=== PATIENT | female | born 1975 | race Caucasian/White ===

== ENCOUNTER 2020-01-13 18:26 | Emergency (ER) | payer BC, OTHER ==
[2020-01-13 18:32] VITALS: BP 157/92; PULSE 90; RESP 22; TEMP 100.1
[2020-01-13] MEDS ORDERED: ACET/COD 300 MG/30 MG STARTER PACK 6 TAB BTL PO STA (19:14)
[2020-01-13] MEDS ORDERED: CYCLOBENZAPRINE 10MG STARTER 3 TAB BTL PO STA (19:14)
[2020-01-13] MEDS ORDERED: HYDROcodone/APAP 5-325MG 1 EACH TAB PO STA (19:14)
--- NOTE | 2020-01-13 19:16 | ED ---
Lower Extremity Injury HPI - General Chief Complaint: Extremity Injury, Lower Stated Complaint: lt calf pain Time Seen by Provider: 01/13/20 18:48 Source: patient Mode of arrival: wheelchair Limitations: no limitations - History of Present Illness Initial Comments: 44-year-old female patient presents to the emergency department today for evaluation of left calf pain. Patient states that she was doing a light jog when she felt a cramp building in her left calf. States that she continued to jog and she felt a snapping sensation and immediate herbal pain to the mid posterior left calf. States that she experiences significant discomfort when she dorsiflexes her foot. She denies any leg swelling. Denies fever or chills. Denies history of similar symptoms. States she does have Achilles tendinitis on that side. She denies any recent antibiotic use. Patient denies any headache, neck pain, back pain, chest pain, shortness of breath, dizziness, weakness, abdominal pain, nausea, vomiting, or difficulties with bowel movements or urination. - Related Data Home Medications Medication Instructions Recorded Confirmed atenoloL [Tenormin] 50 mg PO DAILY 10/14/15 07/03/19 Spironolactone 50 mg PO DAILY 07/02/19 07/02/19 Previous Rx's Medication Instructions Recorded Docusate [Colace] 100 mg PO BID #20 capsule 07/03/19 HYDROcodone/APAP 5-325MG [[place] 1 tab PO Q6HR PRN #10 tab 07/03/19 5-325] Cyclobenzaprine [Flexeril] 10 mg PO TID #15 tab 01/13/20 Allergies Allergy/AdvReac Type Severity Reaction Status Date / Time No Known Allergies Allergy Verified 01/13/20 18:31 Review of Systems ROS Statement: Those systems with pertinent positive or pertinent negative responses have been documented in the HPI. ROS Other: All systems not noted in ROS Statement are negative. Past Medical History Past Medical History: Hypertension Additional Past Medical History / Comment(s): chronic left shoulder pain, arthritis bilateral knees, lowback pain, History of Any Multi-Drug Resistant Organisms: None Reported Past Surgical History: Section, Orthopedic Surgery, Tubal Ligation Additional Past Surgical History / Comment(s): left shoulder X2, bilateral orthoscopic knee surgery Past Anesthesia/Blood Transfusion Reactions: Postoperative Nausea & Vomiting (PONV) Additional Past Anesthesia/Blood Transfusion Reaction / Comment(s): slow to wake up Past Psychological History: No Psychological Hx Reported Past Alcohol Use History: None Reported Past Drug Use History: None Reported - Past Family History Father Family Medical History: Hyperlipidemia, Hypertension Additional Family Medical History / Comment(s): pacemaker for arrhythmia Mother Family Medical History: Hyperlipidemia, Hypertension General Exam Limitations: no limitations General appearance: alert, in no apparent distress, other (This is a well- developed, well-nourished adult female patient in no acute distress. Vital signs upon presentation are temperature 100.1F, pulse 90, respirations 22, blood pressure 157/92, pulse ox 97% on room air.) Respiratory exam: Present: normal lung sounds bilaterally. Absent: respiratory distress, wheezes, rales, rhonchi, stridor Cardiovascular Exam: Present: regular rate, normal rhythm, normal heart sounds. Absent: systolic murmur, diastolic murmur, rubs, gallop, clicks Extremities exam: Present: full ROM, tenderness (Left posterior Calf), normal capillary refill, other (Left leg is pink, warm, dry. Cap refills less than 3 seconds. There is no posterior knee tenderness. There is mid posterior calf tenderness. No redness. Negative Giraldo test. Pedal and posttibial pulses 2+.). Absent: normal inspection, pedal edema, joint swelling, calf tenderness Neurological exam: Present: alert, oriented X3, CN II-XII intact Psychiatric exam: Present: normal affect, normal mood Skin exam: Present: warm, dry, intact, normal color. Absent: rash Course Vital Signs 01/13/20 18:28 Temperature 100.1 F H Pulse Rate 90 Respiratory 22 Rate Blood Pressure 157/92 O2 Sat by Pulse 97 Oximetry Medical Decision Making - Medical Decision Making 44-year-old female patient presents to the emergency department today for evaluation of left calf pain. Patient states that she was jogging today when she felt a cramp in a snapping sensation in the calf causing immediate onset of severe pain. Physical examination reveals normal neurovascular status. She has a negative Giraldo test. We did discuss possibility of muscle spasm versus muscle tear. We will treat with pain medication and muscle relaxers. She will be discharged to follow-up with orthopedics in the next 1-2 days. Return parameters were discussed in detail. She verbalizes understanding and agrees with this plan. Disposition Clinical Impression: Strain of left calf muscle Disposition: HOME SELF-CARE Condition: Good Instructions (If sedation given, give patient instructions): Muscle Strain (ED), Muscle Spasm (ED) Additional Instructions: Apply ice to the area for the first 24 hours and switch to warm moist heat. Take medications as directed for pain control. Follow-up with the primary care physician for recheck in 1-2 days. Follow-up with integrated specialist as soon as possible, call in the morning for an appointment. Rest the leg. Return to the emergency department immediately for any new, worsening, or concerning symptoms. Prescriptions: Cyclobenzaprine [Flexeril] 10 mg PO TID #15 tab Is patient prescribed a controlled substance at d/c from ED?: No Referrals: Azul Cha MD [Primary Care Provider] - 1-2 days Carlitos Peguero DO [Doctor of Osteopathic Medicine] - 1-2 days Time of Disposition: 19:16
== END 2020-01-13 19:23 | disposition home or self-care (01) ==
LOC: EC 18:26
DX: S86.912A Strain of unspecified muscle(s) and tendon(s) at lower leg level, left leg, initial encounter (principal); I10 Essential (primary) hypertension; M17.0 Bilateral primary osteoarthritis of knee; Z79.899 Other long term (current) drug therapy; Z98.890 Other specified postprocedural states; X50.9XXA Other and unspecified overexertion or strenuous movements or postures, initial encounter; Y93.K1 Activity, walking an animal
CPT/HCPCS: 99283

== ENCOUNTER → 2021-06-21 | Outpatient (CLI) | payer BC, OTHER ==
--- NOTE | 2021-06-22 04:47 | MR ---
EXAMINATION TYPE: MR tib fib LT wo con DATE OF EXAM: 06/21/2021 COMPARISON: None HISTORY: Lt calf/ankle pain after jogging, felt something pop. Multiplanar multiecho imaging of the left lower leg without contrast. The tibia and fibula appear intact. There is no edema. There is no evidence of focal bone destruction . There are small elongated fluid collection on the anterior aspect of the Achilles tendon that measu res 31 x 7 mm. . There is no Achilles tendon full-thickness rupture. The muscles of the calf appear i ntact. I see no evidence of a soft tissue mass. The remainder of the exam is unremarkable. IMPRESSION: Exam shows small elongated fluid collection along the anterior aspect of the left side Achilles tendo n and suggestive of a partial tear.
== END | disposition home or self-care (01) ==
LOC: RADMRIMAIN 21:07
PROVIDERS: ATTEND Internal Medicine Rheumatology
DX: M79.662 Pain in left lower leg (principal)

== ENCOUNTER → 2021-06-30 | Outpatient (CLI) | payer BC, OTHER ==
[2021-06-30 14:33] VITALS: BP 160/114; PULSE 75; RESP 18; TEMP 98.6; BMI 52.3
--- NOTE | 2021-06-30 14:46 | P.HPBAR ---
Bariatric H&P - History & Physicial H&P Date: 06/30/21 History & Physicial: Visit/CC: initial visit Patient initial contact: Initial weight: 142.519 kg Initial weight in pounds: 314.20 Height: 5 ft 3.5 in Initial BMI: 54.8 Last weight: Current weight: 136.078 kg Current weight in pounds: 300.00 Current BMI: 52.3 [place] body weight (based on NIH guidelines): 53.297 kg Excess body weight loss: 7.2% The patient is a 45 year-old F who presents for Bariatric Assessment. Since 155 pounds with weight watchers. Looking into keto, intermittent fasting, low carb. She comes in BMI over 50. She is looking into the gastric bypass. Been trying to lose weight since 2014. She has achilles tendon pain. She has lower back pain, right hip pain, left calf muscle torn. She was on workmans compe nsation and could not exercise. 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 She has high blood pressure. Her mother is overweight and brother. She was skinny as a child, then at 19 years old gained her weight. Gallbladder is gone in 2020 prior to COVID. No chronic diarrhea. No Crohns of ulcerative colitis. No easy bruising. She has troubles with sleeping. She does snore. No assessment of sleep apnea. No moderate gastroesophageal reflux disease. Had stomach cancer in grandfather. Highest weight of 346 pounds. She was 175 pounds after weight loss. She eats to get rid of hunger. No prior tobacco. [facility] [place] reviewed. DATE OF SERVICE: 06/30/2021 REASON FOR CONSULTATION: Initial bariatric evaluation HISTORY OF PRESENT ILLNESS: Madina Murphy is a 45-year-old female who comes with morbid obesity for many years. She presents for the first time in consultation. She had lost weight down to 155 pounds with weight watchers in the past. She has tried keto diet, intermittent fasting, including low carb diets. She comes in with body mass index over 50. She is looking into the gastric bypass. She has been trying to lose weight since 2014. She reports Achilles tendon pain. She has lower back pain, right hip pain and left calf muscle pain that was torn. She was on workman's compensation and could not exercise due to her injury. 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 She has high blood pressure. Her mother is overweight and brother. She was skinny as a child, then at 19 years old gained her all of her weight. Her gallbladder is gone since 2019 prior to COVAL. She denies chronic diarrhea. No reports of Crohns or ulcerative colitis. She denies easy bruising. She has troubles with sleeping. She does snore. She had no prior assessment of sleep apnea. She denies moderate gastroesophageal reflux disease. In her family, she has stomach cancer in her grandfather. Her highest weight is 346 pounds. She was 175 pounds after weight loss prior weight loss. She eats to get rid of hunger. She denies prior tobacco. At height of 5 feet 3.5 inches, her ideal body weight is 140 pounds. Her highest weight is 346 pounds, body mass index 52.3. She comes in 287 pounds. Her body mass index is 43.8. She is 124 pounds overweight. PAST MEDICAL HISTORY: 1. Morbid obesity due to excess calories 2. Body mass index of 52.3 3. Hypertensive heart disease 4. Osteoarthritis lower back 5. Osteoarthritis bilateral knees 6. Post operative nausea and vomiting 7. Osteoarthritis right hip PAST SURGICAL HISTORY: 1. Section 2. Tubal ligation 3. Bilateral knee arthroscopy 4. Left shoulder repair x 2 5. Cholecystectomy HOME MEDICATIONS: Home Medications Medication Instructions Recorded Confirmed Ergocalciferol [Vitamin D2 (1250 1,250 mcg PO HERNANDEZ 08/02/21 09/08/21 Mcg = 67543 Iu)] Previous Rx's Medication Instructions Recorded atenoloL [Tenormin] 25 mg PO DAILY #30 tab 08/04/21 Omeprazole [PriLOSEC] 40 mg PO DAILY #14 cap 08/09/21 ALLERGIES: Allergies Allergy/AdvReac Type Severity Reaction Status Date / Time No Known Allergies Allergy Verified 08/06/21 11:51 SOCIAL HISTORY: Denies tobacco use. FAMILY HISTORY: No family history of ulcerative colitis disease or Crohn's disease. Family history of morbid obesity. No lupus in the family. 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 Her mother is overweight and brother. Had stomach cancer in grandfather. REVIEW OF ORGAN SYSTEMS: CONSTITUTIONAL: At height of 5 feet 3.5 inches, her ideal body weight is 140 pounds. Her highest weight is 346 pounds, body mass index 52.3. She comes in 287 pounds. Her body mass index is 43.8. She is 124 pounds overweight. HEENT: Denies any active troubles with vision or hearing. ENDOCRINE: Denies diabetes. Denies hypothyroidism. CARDIOVASCULAR: Denies past reports of palpitations or heart attacks or chest pain. Has hypertensive heart disease. RESPIRATORY: Has daytime somnolence and snores. GASTROINTESTINAL: Denies any bright red blood per rectum. No diarrhea. No constipation. Has gastroesophageal reflux disease. GENITOURINARY: Denies bladder urgency. No recent blood in urine MUSCULOSKELETAL: Has lower back pain and joint pain. Denies history of bilateral lower extremity edema. NEURO: Denies chronic migraines. No seizure disorders. PSYCH: Denies depression. No suicidal ideation. Denies anxiety. RHEUMATOLOGIC: No lupus. No rheumatoid arthritis. HEMATOLOGIC: Denies any abnormal bleeding or bruising. Denies past history of DVTs. SKIN: No rash. No skin cancer. PHYSICAL EXAM: VITAL SIGNS: Height 5 foot 3.5 inches, weight 299 pounds. BMI 52.3 Vital Signs Temp 98.6 F 06/30/21 14:05 Pulse 75 06/30/21 14:05 Resp 18 06/30/21 14:05 BP 160/114 06/30/21 14:05 Pulse Ox GENERAL: Well-developed in no acute distress. HEENT: No scleral icterus. Extraocular movements grossly intact. Hears conversational speech. No nasal drainage. NECK: Supple without lymphadenopathy. CHEST: Nonlabored respirations with equal bilateral excursions. CARDIOVASCULAR: Regular rate and regular rhythm. Distal 2+ pulses. ABDOMEN: Obese, soft, nontender, nondistended. MUSCULOSKELETAL: No clubbing, cyanosis. NEURO: No focal or lateralizing signs. Cranial nerves 2 through 12 grossly within normal limits. PSYCH: Appropriate affect. Alert and oriented to person, place and time. SKIN: Good skin turgor. Well perfused. ASSESSMENT: 1. Morbid obesity due to excess calories 2. Body mass index of 52.3 3. Hypertensive heart disease 4. Osteoarthritis lower back 5. Osteoarthritis bilateral knees 6. Post operative nausea and vomiting 7. Osteoarthritis right hip PLAN: 1. Surgical options including a band, gastric bypass, sleeve gastrectomy were described in detail. Alternatives such as gastric balloon including duodenal switch were described. 2. The [place] bariatric surgical collaborative data and outcomes calculator were described with surgical options. 3. Recommend a bariatric metabolic panel to evaluate for micro- including macronutrient deficiencies. 4. For history of daytime somnolence, recommend evaluation and treatment for sleep apnea. 5. Dietary surveillance and counseling was reviewed. Increased protein intake over 65 grams daily advised. 6. Will need cardiac risk assessment. 7. Recommend medical risk assessment. 8. Psych assessment per insurance guidelines. 9. Recommend upper endoscopy. 10. Recommend 12-lead EKG. 11. Recommend urine nicotine testing pre-op 12. Recommend urine drug screen 13. She is elevated risk of complications with BMI over 50. Thank you for this consultation. Past Medical History Past Medical History: Hypertension Additional Past Medical History / Comment(s): chronic left shoulder pain, arthritis bilateral knees, lowback pain, History of Any Multi-Drug Resistant Organisms: None Reported Past Surgical History: Section, Orthopedic Surgery, Tubal Ligation Additional Past Surgical History / Comment(s): left shoulder X2, bilateral orthoscopic knee surgery Past Anesthesia/Blood Transfusion Reactions: Postoperative Nausea & Vomiting (PONV) Additional Past Anesthesia/Blood Transfusion Reaction / Comm: slow to wake up Past Psychological History: No Psychological Hx Reported Smoking Status: Never smoker Past Alcohol Use History: None Reported Past Drug Use History: None Reported - Past Family History Father Family Medical History: Hyperlipidemia, Hypertension Additional Family Medical History / Comment(s): pacemaker for arrhythmia Mother Family Medical History: Hyperlipidemia, Hypertension Surgical - Exam Vital Signs Temp Pulse Resp BP 98.6 F 75 18 160/114 06/30/21 14:05 06/30/21 14:05 06/30/21 14:05 06/30/21 14:05 Results - Labs 06/30/21 15:25 06/30/21 15:25 Bariatric Checklist Checklist: Plan: Checklist: EGD: 1. Hiatal hernia: 2. H. Pylori: HgbA1c: Vitamin D: Smoking: Never smoker Primary care physician referral: Dr Cha Psychiatry clearance: Cardiology clearance: Sleep study: Diet journal: VTE risk score: VTE risk level: Rehab needs at discharge:
[2021-06-30 16:06] LABS: Partial Thromboplastin Time 26.6 sec (22.0-30.0); Prothrombin Time 10.5 sec (9.0-12.0)
[2021-06-30 23:19] LABS: HCT 39.2 % (37.2-46.3); HGB 12.8 g/dL (12.0-15.0); MCH 29.7 pg (27.0-32.0); MCHC 32.7 g/dL (32.0-37.0); Mean Platelet Volume 12.5 fL (9.5-12.2); NRBC Per 100 WBC 0 /100 WBCS (0.0-0.0); Platelet Count 210 X 10*3/uL (140-440); RBC 4.31 X 10*6/uL (4.10-5.20); RDW 12.2 % (11.5-14.5); WBC 7.41 X 10*3/uL (4.50-10.00)
[2021-07-01 00:32] LABS: Chol/HDL Ratio 4.67 Ratio; LDL Cholesterol,Calculated 120.4 mg/dL (0.0-131.0); Prealbumin 18.7 mg/dL (18.0-42.0); VLDL Calculation 17.86 mg/dL (5.00-40.00)
[2021-07-01 05:37] LABS: % Iron Saturation 14.18 (12.00-45.00); ALT 16 U/L (8-44); AST 15 U/L (13-35); African American GFR (CKD) 79.3 (60.0-200.0); Albumin 4.2 g/dL (3.8-4.9); Albumin/Globulin Ratio 1.31 (1.60-3.17); Alkaline Phosphatase 95 U/L (41-126); Blood Urea Nitrogen 19.5 mg/dL (9.0-27.0); Calcium 9.2 mg/dL (8.7-10.3); Carbon Dioxide 19.9 mmol/L (20.0-27.5); Chloride 106 mmol/L (96-109); Globulin 3.2 g/dL (1.6-3.3); Glucose 98 mg/dL (70-110); Iron 56 ug/dL (50-170); Magnesium 2.1 mg/dL (1.5-2.4); Non-African American GFR(CKD) 68.5 (60.0-200.0); Phosphorus 3.5 mg/dL (2.4-5.1); Potassium 3.3 mmol/L (3.5-5.5); Sodium 152 mmol/L (135-145); Total Iron Binding Capacity 392 ug/dL (228-460); Total Protein 7.4 g/dL (6.2-8.2)
[2021-07-02 12:34] LABS: Zinc, Serum 65 ug/dL (60-130)
[2021-07-02 15:32] LABS: Anabasine Urine <2.0 ng/mL (<2.0)
[2021-07-05 06:50] LABS: Vitamin A 41 ug/dL (38-106)
[2021-07-05 12:39] LABS: Vit B1(Thiamine) 69 ug/L (38-122)
[2021-07-06 08:29] LABS: Selenium 161 mcg/L (63-160)
== END ==
LOC: BARWHC3 13:50
PROVIDERS: ATTEND Surgery Plastic and Reconstructive Surgery
DX: E66.01 Morbid (severe) obesity due to excess calories (principal); Z68.43 Body mass index [BMI] 50.0-59.9, adult; I11.9 Hypertensive heart disease without heart failure; M47.9 Spondylosis, unspecified; M17.0 Bilateral primary osteoarthritis of knee; R11.2 Nausea with vomiting, unspecified; M16.11 Unilateral primary osteoarthritis, right hip
CPT/HCPCS: 84255; 84134; 84425; 80061; 80053; 82607; 82728; 82525; 82746; 83540; 83550; 83735; 84100; 84443; 84590; 84630; 85027; 85610; 85730; 82306; 80323; 83970; 83036; 80307; 99211; 93005; 36415; G0482

== ENCOUNTER 2021-08-02 10:18 | Inpatient (IN) | payer BC, OTHER ==
--- NOTE | 2021-08-02 10:58 | ED ---
Arrhythmia/Palpitations HPI - General Chief Complaint: Arrhythmia/Palpitations Stated Complaint: Heart Palpitations Time Seen by Provider: 08/02/21 10:27 Source: patient, RN notes reviewed Mode of arrival: ambulatory Limitations: no limitations - History of Present Illness Initial Comments: This is a 45-year-old female who presents to the emergency department for palpitations. States that this morning she began to feel her heart racing and was experience tingling in the face, and just felt overall unwell. 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 Denies any recent illnesses, fevers, chills, SOB, dizziness, chest pain, or headaches. Denies any known history of atrial fibrillation. She has never seen a dry clipper tender in the past, but does have a stress test scheduled for this Monday in this hospital. When discussing her low potassium levels, she states that she is on the keto diet and whenever she is on the keto diet, her potassium drops. The lowest it has ever been is 0.8. MD Complaint: rapid heart beat, "heart racing", palpitations - Related Data Home Medications Medication Instructions Recorded Confirmed atenoloL [Tenormin] 50 mg PO DAILY 10/14/15 08/02/21 hydroCHLOROthiazide [Hydrodiuril] 25 mg PO DAILY 06/30/21 08/02/21 Ergocalciferol [Vitamin D2 (1250 1,250 mcg PO HERNANDEZ 08/02/21 08/02/21 Mcg = [id number] Iu)] Ibuprofen [Motrin Ib] 800 mg PO Q8H PRN 08/02/21 08/02/21 Potassium Chloride ER [K-Dur 10] 10 meq PO DAILY 08/02/21 08/02/21 Allergies Allergy/AdvReac Type Severity Reaction Status Date / Time No Known Allergies Allergy Verified 08/02/21 11:40 Review of Systems ROS Statement: Those systems with pertinent positive or pertinent negative responses have been documented in the HPI. ROS Other: All systems not noted in ROS Statement are negative. Constitutional: Denies: fever, chills Respiratory: Denies: cough, dyspnea Cardiovascular: Reports: palpitations. Denies: chest pain Gastrointestinal: Denies: abdominal pain, nausea, vomiting, diarrhea Genitourinary: Denies: urgency, dysuria Musculoskeletal: Denies: back pain Skin: Denies: rash, lesions Neurological: Denies: headache, weakness Psychiatric: Denies: anxiety, depression Past Medical History Past Medical History: Hypertension Additional Past Medical History / Comment(s): chronic left shoulder pain, arthritis bilateral knees, lowback pain, History of Any Multi-Drug Resistant Organisms: None Reported Past Surgical History: Section, Orthopedic Surgery, Tubal Ligation Additional Past Surgical History / Comment(s): left shoulder X2, bilateral orth oscopic knee surgery Past Anesthesia/Blood Transfusion Reactions: Postoperative Nausea & Vomiting (PONV) Additional Past Anesthesia/Blood Transfusion Reaction / Comment(s): slow to wake up Past Psychological History: No Psychological Hx Reported Smoking Status: Never smoker Past Alcohol Use History: None Reported Past Drug Use History: None Reported - Past Family History Father Family Medical History: Hyperlipidemia, Hypertension Additional Family Medical History / Comment(s): pacemaker for arrhythmia Mother Family Medical History: Hyperlipidemia, Hypertension General Exam Limitations: no limitations General appearance: alert, in no apparent distress Head exam: Present: atraumatic, normocephalic, normal inspection Respiratory exam: Present: normal lung sounds bilaterally. Absent: respiratory distress, wheezes, rales, rhonchi, stridor Cardiovascular Exam: Present: regular rate, normal rhythm, normal heart sounds. Absent: systolic murmur, diastolic murmur, rubs, gallop, clicks Neurological exam: Present: alert, oriented X3, CN II-XII intact Psychiatric exam: Present: normal affect, normal mood Skin exam: Present: warm, dry, intact, normal color. Absent: rash Course Vital Signs 08/02/21 08/02/21 10:21 10:52 Temperature 98.6 F Pulse Rate 77 71 Respiratory 20 18 Rate Blood Pressure 158/88 126/90 O2 Sat by Pulse 96 97 Oximetry EKG Findings - EKG Results: EKG: interpreted by CYNDIE, sinus rhythm Medical Decision Making - Medical Decision Making This is a 45-year-old female who presents to the emergency department co mplaining of palpitations. EKG obtained which revealed flattened T waves. EKG compared with prior EKG from 06/30/2021 and flattened T waves were not present. Lab work returned with a critical value for potassium of 2.0. Potassium replaced with 40 mg PO, which will be repeated 2 hours later. Of note, patient does take 10 mg of potassium at home. Lab work was otherwise unremarkable. Magnesium was mildly low at 1.4, phosphorus level ordered to correlate with hypokalemia. Chest x-ray obtained as well and was noted to be unremarkable. Will admit patient for management of hypokalemia. - Lab Data Result diagrams: 08/02/21 10:48 08/02/21 10:48 Lab Results 08/02/21 08/02/21 08/02/21 Range/Units 10:48 10:48 10:48 WBC 6.7 (3.8-10.6) k/uL RBC 4.74 (3.80-5.40) m/uL Hgb 14.9 (11.4-16.0) gm/dL Hct 42.6 (34.0-46.0) % MCV 89.7 (80.0-100.0) fL MCH 31.5 (25.0-35.0) pg MCHC 35.1 (31.0-37.0) g/dL RDW 13.4 (11.5-15.5) % Plt Count 182 (150-450) k/uL MPV 10.2 Neutrophils % 63 % Lymphocytes % 28 % Monocytes % 6 % Eosinophils % 1 % Basophils % 1 % Neutrophils # 4.2 (1.3-7.7) k/uL Lymphocytes # 1.9 (1.0-4.8) k/uL Monocytes # 0.4 (0-1.0) k/uL Eosinophils # 0.1 (0-0.7) k/uL Basophils # 0.1 (0-0.2) k/uL PT 11.2 (9.0-12.0) sec INR 1.0 (<1.2) Sodium (137-145) mmol/L Potassium (3.5-5.1) mmol/L Chloride (98-107) mmol/L Carbon Dioxide (22-30) mmol/L Anion Gap mmol/L BUN (7-17) mg/dL Creatinine (0.52-1.04) mg/dL Est GFR (CKD-EPI)AfAm (>60 ml/min/1.73 sqM) Est GFR (CKD-EPI)NonAf (>60 ml/min/1.73 sqM) Glucose (74-99) mg/dL Calcium (8.4-10.2) mg/dL Magnesium (1.6-2.3) mg/dL Total Bilirubin (0.2-1.3) mg/dL AST (14-36) U/L ALT (4-34) U/L Alkaline Phosphatase (38-126) U/L Troponin I 0.012 (0.000-0.034) ng/mL Total Protein (6.3-8.2) g/dL Albumin (3.5-5.0) g/dL TSH (0.465-4.680) mIU/L 08/02/21 Range/Units 10:48 WBC (3.8-10.6) k/uL RBC (3.80-5.40) m/uL Hgb (11.4-16.0) gm/dL Hct (34.0-46.0) % MCV (80.0-100.0) fL MCH (25.0-35.0) pg MCHC (31.0-37.0) g/dL RDW (11.5-15.5) % Plt Count (150-450) k/uL MPV Neutrophils % % Lymphocytes % % Monocytes % % Eosinophils % % Basophils % % Neutrophils # (1.3-7.7) k/uL Lymphocytes # (1.0-4.8) k/uL Monocytes # (0-1.0) k/uL Eosinophils # (0-0.7) k/uL Basophils # (0-0.2) k/uL PT (9.0-12.0) sec INR (<1.2) Sodium 135 L (137-145) mmol/L Potassium 2.0 L* (3.5-5.1) mmol/L Chloride 97 L (98-107) mmol/L Carbon Dioxide 25 (22-30) mmol/L Anion Gap 13 mmol/L BUN 10 (7-17) mg/dL Creatinine 0.80 (0.52-1.04) mg/dL Est GFR (CKD-EPI)AfAm >90 (>60 ml/min/1.73 sqM) Est GFR (CKD-EPI)NonAf >90 (>60 ml/min/1.73 sqM) Glucose 93 (74-99) mg/dL Calcium 7.8 L (8.4-10.2) mg/dL Magnesium 1.5 L (1.6-2.3) mg/dL Total Bilirubin 2.1 H (0.2-1.3) mg/dL AST 20 (14-36) U/L ALT 14 (4-34) U/L Alkaline Phosphatase 62 (38-126) U/L Troponin I (0.000-0.034) ng/mL Total Protein 6.7 (6.3-8.2) g/dL Albumin 3.4 L (3.5-5.0) g/dL TSH 1.470 (0.465-4.680) mIU/L - EKG Data EKG shows normal: sinus rhythm Rate: normal EKG Comments: EKG is in sinus rhythm with nonspecific ST and T-wave abnormalities. There is a ventricular rate of 85 bpm, GA interval of 144 ms, QRS duration of 101 ms, and QTc of 427 ms. - Radiology Data Radiology results: report reviewed, image reviewed No acute cardiopulmonary process. Disposition Clinical Impression: Hypokalemia, Palpitations with regular cardiac rhythm Disposition: ADMITTED IP TO THIS HOSP
[2021-08-02 11:05] LABS: Basophils # (A) 0.1 k/uL (0-0.2); Basophils % (A) 1 %; Eosinophils # (A) 0.1 k/uL (0-0.7); Eosinophils % (A) 1 %; HCT 42.6 % (34.0-46.0); HGB 14.9 gm/dL (11.4-16.0); Lymphocytes # (A) 1.9 k/uL (1.0-4.8); Lymphocytes % (A) 28 %; MCH 31.5 pg (25.0-35.0); MCHC 35.1 g/dL (31.0-37.0); MCV 89.7 fL (80.0-100.0); Mean Platelet Volume 10.2; Monocytes # (A) 0.4 k/uL (0-1.0); Monocytes % (A) 6 %; Neutrophils # (A) 4.2 k/uL (1.3-7.7); Neutrophils % (A) 63 %; Platelet Count 182 k/uL (150-450); RBC 4.74 m/uL (3.80-5.40); RDW 13.4 % (11.5-15.5); WBC 6.7 k/uL (3.8-10.6)
--- NOTE | 2021-08-02 11:09 | XR ---
EXAMINATION TYPE: XR chest 2V DATE OF EXAM: 08/02/2021 COMPARISON: NONE HISTORY: Dysrhythmia, palpitations TECHNIQUE: Frontal and lateral views of the chest are obtained. FINDINGS: There is no focal air space opacity, pleural effusion, or pneumothorax seen. The cardiac silhouette size is within normal limits. The osseous structures show postop change to the left shou lder, there are overlying artifacts, a shunt is rotated. IMPRESSION: No acute cardiopulmonary process.
[2021-08-02 11:13] LABS: Prothrombin Time 11.2 sec (9.0-12.0)
[2021-08-02 11:48] LABS: ALT 14 U/L (4-34); AST 20 U/L (14-36); African American GFR (CKD) >90 (>60 ml/min/1.73 sqM); Albumin 3.4 g/dL (3.5-5.0); Alkaline Phosphatase 62 U/L (38-126); Anion Gap 13 mmol/L; Blood Urea Nitrogen 10 mg/dL (7-17); Calcium 7.8 mg/dL (8.4-10.2); Carbon Dioxide 25 mmol/L (22-30); Chloride 97 mmol/L (98-107); Glucose 93 mg/dL (74-99); Magnesium 1.5 mg/dL (1.6-2.3); Non-African American GFR(CKD) >90 (>60 ml/min/1.73 sqM); Sodium 135 mmol/L (137-145); Total Bilirubin 2.1 mg/dL (0.2-1.3); Total Protein 6.7 g/dL (6.3-8.2)
[2021-08-02] MEDS ORDERED: POTASSIUM CHLORIDE 20 MEQ in WATER FOR INJECTION 1 100ML.BAG IVPB SCH (13:00)
[2021-08-02] MEDS ORDERED: oxyCODONE-APAP 5-325MG 1 EACH TAB PO PRN (13:06)
[2021-08-02] MEDS ORDERED: NALOXONE 0.4 MG/ML 1 ML VIAL IV PRN (13:06)
[2021-08-02] MEDS ORDERED: ONDANSETRON 4 MG/2 ML VIAL IVP PRN (13:06)
[2021-08-02] MEDS ORDERED: traMADol 50 MG TAB PO PRN (13:06)
[2021-08-02] MEDS ORDERED: ALPRAZolam 0.25 MG TAB PO PRN (13:06)
[2021-08-02] MEDS ORDERED: ACETAMINOPHEN TAB 325 MG TAB PO PRN (13:06)
[2021-08-02] MEDS ORDERED: POTASSIUM CHLORIDE ER 20 MEQ TAB.ER PO STA (13:10)
[2021-08-02] MEDS ORDERED: POTASSIUM BICARBONATE/CIT AC 20 MEQ TABLET.EFF PO ONE (13:16)
[2021-08-02] MEDS ORDERED: IBUPROFEN 800 MG TAB PO PRN (14:26)
[2021-08-02] MEDS ORDERED: MELATONIN 3 MG TABLET PO PRN (14:27)
[2021-08-02] MEDS ORDERED: CALCIUM CARBONATE 500 MG CHEWABLE PO PRN (14:27)
[2021-08-02] MEDS ORDERED: LACTULOSE 20 GM/30 ML CUP PO PRN (14:27)
[2021-08-02] MEDS ORDERED: Potassium Replacement Protocol 1 EACH MISC MISCELLANE PRN (18:42)
[2021-08-02] MEDS: POTASSIUM BICARBONATE/CIT AC 20 MEQ TABLET.EFF NG-TUBE SCH ×3 (19:36→21:29)
[2021-08-02] MEDS: MAGNESIUM OXIDE 400 MG TAB PO SCH (21:29)
[2021-08-02] MEDS ORDERED: POTASSIUM CHLORIDE ER 20 MEQ TAB.ER PO SCH (22:00)
--- NOTE | 2021-08-02 22:03 | P.HPIM ---
History of Present Illness H&P Date: 08/02/21 Chief Complaint: Nailing in the face This is a very pleasant 45-year-old patient follows with Dr. Azul Cha. Chronic stable medical conditions include hypertension, osteoarthritis, morbid obesity. Patient is scheduled for getting bariatric surgery by Dr. Adamson down the road. In the process patient is started off during Keeter diet for about 5 weeks. She has lost about 33 pounds. Today when she was at work she felt tingling in the cheeks and fluttering of the eyelids. Just felt out of sorts. Patient had chronic palpitations. 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 Patient was discovered to have a potassium of 2 and a magnesia normal 1.5. Patient had one occasion again was found to be hypokalemic and apparently that time her potassium was down to 0.8 potassium replacement was started today. Otherwise patient does not feel weak and tired. Patient recently had an EKG done in the family doctor's and now some abnormality and she is going to go down for a stress test. 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 No smoking no alcohol Family history: Hypertension, hyperlipidemia Physical examination: VITAL SIGNS: 98.2, 75, 16, 127/92, 98% room air GENERAL: BMI 46.9, sitting up in bed, awake,. EYES: Pupils equal. Conjunctiva normal. HEENT: External appearance of nose and ears normal, oral cavity grossly normal. NECK: JVD not raised; masses not palpable. HEART: First and second heart sounds are normal; no edema. LUNGS: Respiratory rate normal; clear to auscultation. ABDOMEN: Soft, nontender, liver spleen not palpable, no masses palpable. PSYCH: Alert and oriented x3; mood and affect normal. MUSCULOSKELETAL:No Clubbing/cyanosis;muscles-grossly intact NEUROLOGICAL: Cranial nerves grossly intact; no facial asymmetry, power and sensation grossly intact. LYMPHATICS: No lymph nodes palpable in the axilla and neck INVESTIGATIONS, reviewed in the clinical context: White count 6.7 hemoglobin 14.9 platelets 1822 sodium 135 potassium to repeat 2.7 creatinine 0.8 magnesia 1.5 total bilirubin 2.1 TSH 1.4 EKG tracing personally reviewed by me-no sinus rhythm, ST segment depression in anterior leads and inferior leads Chest x-ray film personally reviewed by me-lungs clear Assessment and plan: -Severe hypokalemia symptomatic in a patient who takes Keeto diet. Patient does not eat any fruits. Potassium is being replaced. Discussion will was had with the patient in regards to Keeter diet and also eating fruits-this is also worsened by patient taking hydrochlorothiazide which will be discontinued. -Hypomagnesemia Magnesium oxide 400 mg 3 times a day -Morbid obesity BMI 46.9 Patient is due to get bariatric surgery by Dr. Adamson. In the meantime patient is on a Keeter diet. -Essential hypertension Tenormin 50 mg a day -Osteoarthritis Motrin when necessary -Abnormal EKG. Patient scheduled for stress test as outpatient. No cardiac symptoms currently. Replace potassium and magnesium. Telemetry. Resume home medications. Hold hydrochlorothiazide. Repeat potassium in the morning. Past Medical History Past Medical History: Hypertension Additional Past Medical History / Comment(s): chronic left shoulder pain, arthritis bilateral knees, lowback pain, History of Any Multi-Drug Resistant Organisms: None Reported Past Surgical History: Section, Orthopedic Surgery, Tubal Ligation Additional Past Surgical History / Comment(s): left shoulder X2, bilateral orthoscopic knee surgery Past Anesthesia/Blood Transfusion Reactions: Postoperative Nausea & Vomiting (PONV) Additional Past Anesthesia/Blood Transfusion Reaction / Comment(s): slow to wake up Past Psychological History: No Psychological Hx Reported Smoking Status: Never smoker Past Alcohol Use History: None Reported Past Drug Use History: None Reported - Past Family History Father Family Medical History: Hyperlipidemia, Hypertension Additional Family Medical History / Comment(s): pacemaker for arrhythmia Mother Family Medical History: Hyperlipidemia, Hypertension Medications and Allergies Home Medications Medication Instructions Recorded Confirmed Type atenoloL [Tenormin] 50 mg PO DAILY 10/14/15 08/02/21 History hydroCHLOROthiazide [Hydrodiuril] 25 mg PO DAILY 06/30/21 08/02/21 History Ergocalciferol [Vitamin D2 (1250 1,250 mcg PO HERNANDEZ 08/02/21 08/02/21 History Mcg = 85631 Iu)] Ibuprofen [Motrin Ib] 800 mg PO Q8H PRN 08/02/21 08/02/21 History Potassium Chloride ER [K-Dur 10] 10 meq PO DAILY 08/02/21 08/02/21 History Allergies Allergy/AdvReac Type Severity Reaction Status Date / Time No Known Allergies Allergy Verified 08/02/21 11:40 Physical Exam Vitals: Vital Signs Temp Pulse Resp BP Pulse Ox 08/02/21 14:13 79 115/92 100 08/02/21 10:52 71 18 126/90 97 08/02/21 10:21 98.6 F 77 20 158/88 96 Intake and Output 08/01/21 08/02/21 08/02/21 22:59 06:59 14:59 Other: Weight 123.831 kg Results CBC & Chem 7: 08/02/21 10:48 08/02/21 17:20 Labs: Abnormal Lab Results - Last 24 Hours (Table) 08/02/21 Range/Units 10:48 Sodium 135 L (137-145) mmol/L Potassium 2.0 L* (3.5-5.1) mmol/L Chloride 97 L (98-107) mmol/L Calcium 7.8 L (8.4-10.2) mg/dL Magnesium 1.5 L (1.6-2.3) mg/dL Total Bilirubin 2.1 H (0.2-1.3) mg/dL Albumin 3.4 L (3.5-5.0) g/dL
[2021-08-02] MEDS ORDERED: POTASSIUM CHLORIDE ER 20 MEQ TAB.ER PO ONE (22:30)
[2021-08-03 06:49] LABS: African American GFR (CKD) >90 (>60 ml/min/1.73 sqM); Anion Gap 6 mmol/L; Blood Urea Nitrogen 11 mg/dL (7-17); Calcium 8.3 mg/dL (8.4-10.2); Carbon Dioxide 34 mmol/L (22-30); Chloride 96 mmol/L (98-107); Glucose 109 mg/dL (74-99); Magnesium 1.8 mg/dL (1.6-2.3); Non-African American GFR(CKD) >90 (>60 ml/min/1.73 sqM); Sodium 136 mmol/L (137-145)
[2021-08-03 06:56] LABS: Potassium 2.6 mmol/L (3.5-5.1)
[2021-08-03 07:04] LABS: HCT 39.6 % (34.0-46.0); HGB 13.4 gm/dL (11.4-16.0); MCH 31.3 pg (25.0-35.0); MCHC 33.8 g/dL (31.0-37.0); MCV 92.5 fL (80.0-100.0); Mean Platelet Volume 10.7; Platelet Count 177 k/uL (150-450); RBC 4.28 m/uL (3.80-5.40); RDW 13.9 % (11.5-15.5); WBC 4.2 k/uL (3.8-10.6)
[2021-08-03] MEDS: MAGNESIUM OXIDE 400 MG TAB PO SCH (08:03)
[2021-08-03] MEDS: POTASSIUM BICARBONATE/CIT AC 20 MEQ TABLET.EFF PO SCH ×3 (08:04→10:03)
[2021-08-03] MEDS: ENOXAPARIN 40 MG/0.4 ML SYRINGE SQ SCH (08:04)
[2021-08-03] MEDS ORDERED: POTASSIUM CHLORIDE ER 20 MEQ TAB.ER PO SCH (12:00)
--- NOTE | 2021-08-03 15:31 | P.PN ---
Progress Note - Text Progress Note Date: 08/03/21 Chief Complaint: Tingling in the face This is a very pleasant 45-year-old patient follows with Dr. Azul Cha. Chronic stable medical conditions include hypertension, osteoarthritis, morbid obesity. Patient is scheduled for getting bariatric surgery by Dr. Adamson down the road. In the process patient is started off during Keeter diet for about 5 weeks. She has lost about 33 pounds. Today when she was at work she felt tingling in the cheeks and fluttering of the eyelids. Just felt out of sorts. Patient had chronic palpitations. 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 Patient was discovered to have a potassium of 2 and a magnesia normal 1.5. Patient had one occasion again was found to be hypokalemic and apparently that time her potassium was down to 0.8 potassium replacement was started today. Otherwise patient does not feel weak and tired. Patient recently had an EKG done in the family doctor's and now some abnormality and she is going to go down for a stress test. August 03: S1 1 potassium came back at 2.6. After being replaced came back at 3.1. More potassium was ordered. 24-hour urine potassium ordered along with nephrology consult. Discussed with patient given that long history of taking naproxen even though the creatinine is normal wanted to make sure she is not having potassium losing nephropathy. Was discussed with the patient has been out of the bedside. 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 No smoking no alcohol Family history: Hypertension, hyperlipidemia Physical examination: VITAL SIGNS: 98.2, 80, 18, 140/80, 99% room air GENERAL: Sitting up in bed, awake, comfortable,. EYES: Pupils equal. Conjunctiva normal. HEENT: External appearance of nose and ears normal, oral cavity grossly normal. NECK: JVD not raised; masses not palpable. HEART: First and second heart sounds are normal; no edema. LUNGS: Respiratory rate normal; clear to auscultation. ABDOMEN: Soft, nontender, liver spleen not palpable, no masses palpable. PSYCH: Alert and oriented x3; mood and affect normal. MUSCULOSKELETAL:No Clubbing/cyanosis;muscles-grossly intact NEUROLOGICAL: Cranial nerves grossly intact; no facial asymmetry, power and sensation grossly intact. INVESTIGATIONS, reviewed in the clinical context: August 03: Potassium 2. 6 repeat 3.1. Magnesium 1.8 White count 6.7 hemoglobin 14.9 platelets 1822 sodium 135 potassium to repeat 2.7 creatinine 0.8 magnesia 1.5 total bilirubin 2.1 TSH 1.4 EKG tracing personally reviewed by me-no sinus rhythm, ST segment depression in anterior leads and inferior leads Chest x-ray film personally reviewed by me-lungs clear Assessment and plan: -Severe hypokalemia symptomatic in a patient who takes Keeto diet. Patient does not eat any fruits. Potassium is being replaced. Discussion will was had with the patient in regards to Keeter diet and also eating fruits-this is also worsened by patient taking hydrochlorothiazide which will be discontinued. 24-hour urine for potassium ordered. Nephrology consult. Replace potassium. -Hypomagnesemia: Better Magnesium oxide 400 mg a day -Morbid obesity BMI 46.9 Patient is due to get bariatric surgery by Dr. Adamson. In the meantime patient is on a Keeter diet. -Essential hypertension Tenormin 50 mg a day -Osteoarthritis Motrin when necessary -Abnormal EKG. Patient scheduled for stress test as outpatient. No cardiac symptoms currently. Replace potassium . Consult nephrology. 24-hour urine potassium. 2-D echo. Consult cardiology.
[2021-08-03 20:05] VITALS: RESP 16
[2021-08-04] MEDS ORDERED: Potassium Replacement Protocol 1 EACH MISC MISCELLANE PRN ×2 (06:36→08:18)
[2021-08-04] MEDS: POTASSIUM CHLORIDE ER 20 MEQ TAB.ER PO SCH ×5 (06:48→11:20)
[2021-08-04] MEDS: ENOXAPARIN 40 MG/0.4 ML SYRINGE SQ SCH ×2 (08:06→08:14)
[2021-08-04] MEDS ORDERED: atenoloL 25 MG TAB PO SCH (09:00)
[2021-08-04] MEDS ORDERED: MAGNESIUM OXIDE 400 MG TAB PO SCH (09:00)
--- NOTE | 2021-08-04 09:31 | CONS ---
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 She came into the hospital having palpitations and was found to have significant hypokalemia with a potassium of 2.0. She had sinus rhythm with ST and T-wave changes, nonspecific type. She received some potassium and she is not yet in the normal range. She apparently started on a keto diet and whenever she takes the keto diet her potassium drops, but it has not been this low. She also takes atenolol 50 mg daily and hydrochlorothiazide 25 mg daily for her hypertension. She came into the ER complaining of having a sensation of her heart racing, palpitations, and just felt unwell. Hypokalemia seems to be the trigger for her symptoms, She feels much better now. She is resting comfortably without symptoms. PAST MEDICAL HISTORY: 1. Hypertension. 2. Degenerative joint disease with some left shoulder pain and bilateral knee discomfort. 3. She is status post section, orthopedic surgery and tubal ligation. ALLERGIES: NONE. MEDICATIONS: Medications include atenolol 50 mg daily, hydrochlorothiazide 25 mg daily, ibuprofen and potassium 10 mEq daily. PHYSICAL EXAMINATION: On examination, blood pressure is 118/70, pulse rate is about 74 per minute, regular. HEENT unremarkable. Fundus was not examined by me. Neck is supple. No JVD. I do not hear a carotid bruit. There is no thyromegaly. Heart exam reveals S1, S2 heard normally. No significant rub, murmur or gallop. Lungs are clear. Abdomen is soft, nontender. Lower extremities reveal palpable pulses. No edema. Central nervous system is normal. EKG revealed a sinus mechanism with a nonspecific ST and T-wave abnormality. No acute changes. LABORATORY DATA: Potassium was 2.0 and it came up to 2.5. TSH levels are normal. Renal function is normal. Her magnesium was also 1.5, came up to 1.8. IMPRESSION: 1. Palpitations. 2. Significant hypokalemia. 3. Hypertension. 4. Patient is planning for bariatric surgery. RECOMMENDATIONS: I recommend aggressive supplementation of potassium. Patient received 20 mEq today, two doses. I will give additional 60 mEq. Recheck potassium level at 6 p.m. and 6 a.m. Will start her back on atenolol at 25 mg daily. Continue telemetry and obtain echocardiogram. Based on this testing and clinical picture, will make further recommendations. Discussed my thoughts in detail with the patient. Thank you very much for the consult. MMCASSIDYL / IJN: [id number] /
--- NOTE | 2021-08-04 12:55 | P.NPCON ---
History of Present Illness - Reason for Consult hypokalemia - History of Present Illness Patient is a 45-year-old female with history of hypertension diagnosed at age 27. She was admitted to the hospital with increased weakness, palpitations twitching of her lips and found to have severe hypokalemia with potassium of 2.0. Patient states that she was recently restarted on hydrochlorothiazide at the end of May 05 she has been taking potassium supplementation but her potassium level was progressively decreasing as outpatient. No complaints of diarrhea nausea or vomiting Magnesium was 1.5 and this was replaced. Potassium had improved to 3.1 yesterday and it is back down to 2.5 today. Off note patient has been taking Motrin for quite a few years on a regular basis. Review of Systems As per HPI other systems negative Past Medical History Past Medical History: Hypertension Additional Past Medical History / Comment(s): chronic left shoulder pain, arthritis bilateral knees, lowback pain, History of Any Multi-Drug Resistant Organisms: None Reported Past Surgical History: Section, Orthopedic Surgery, Tubal Ligation Additional Past Surgical History / Comment(s): left shoulder X2, bilateral orthoscopic knee surgery Past Anesthesia/Blood Transfusion Reactions: Postoperative Nausea & Vomiting ( PONV) Additional Past Anesthesia/Blood Transfusion Reaction / Comment(s): slow to wake up Past Psychological History: No Psychological Hx Reported Smoking Status: Never smoker Past Alcohol Use History: None Reported Past Drug Use History: None Reported - Past Family History Father Family Medical History: Hyperlipidemia, Hypertension Additional Family Medical History / Comment(s): pacemaker for arrhythmia Mother Family Medical History: Hyperlipidemia, Hypertension Medications and Allergies Home Medications Medication Instructions Recorded Confirmed Type atenoloL [Tenormin] 50 mg PO DAILY 10/14/15 08/02/21 History hydroCHLOROthiazide [Hydrodiuril] 25 mg PO DAILY 06/30/21 08/02/21 History Ergocalciferol [Vitamin D2 (1250 1,250 mcg PO HERNANDEZ 08/02/21 08/02/21 History Mcg = 84357 Iu)] Ibuprofen [Motrin Ib] 800 mg PO Q8H PRN 08/02/21 08/02/21 History Potassium Chloride ER [K-Dur 10] 10 meq PO DAILY 08/02/21 08/02/21 History Allergies Allergy/AdvReac Type Severity Reaction Status Date / Time No Known Allergies Allergy Verified 08/02/21 11:40 Physical Exam Vitals: Vital Signs Temp Pulse Resp BP Pulse Ox 08/04/21 04:25 97.8 F 67 16 113/73 97 08/03/21 20:02 98.4 F 91 16 116/80 98 Intake and Output 08/03/21 08/04/21 08/04/21 22:59 06:59 14:59 Intake Total 540 Balance 540 Intake: Oral 540 Other: Voiding Method Toilet # Voids 2 1 Patient is awake comfortable. She is not in any acute distress. Examination of the heart S1 and S2 Examination lungs bilateral breath sounds are heard [place] abdomen is soft nontender Examination lower extremities shows no evidence of edema [employer] exam grossly intact Results - Lab Results Most recent lab results Calcium 8.3 mg/dL (8.4-10.2) L 08/03/21 05:47 Phosphorus 2.6 mg/dL (2.5-4.5) 08/02/21 10:48 Magnesium 1.7 mg/dL (1.6-2.3) 08/04/21 05:48 08/03/21 05:47 08/04/21 05:48 Assessment and Plan Assessment: 1. Hypokalemia associated with use of thiazide diuretics. Need to rule out underlying hyperaldosteronism given the onset of hypertension at an early age. 2. Hypomagnesemia secondary to diuresis 3. Muscle twitching, palpitations associated with severe hypokalemia 4. Hypertension rule out secondary causes particularly hyperaldosteronism Plan: Replace potassium aggressively. Replace magnesium as well Continue to hold Aldactone and check serum aldosterone and renal levels. Continue to hold thiazide diuretics Advised to increase potassium-containing foods Patient can be discharged today with repeat labs to be done as outpatient in 2-3 days. Patient should follow-up in the office with nephrology in about 1-2 weeks.
[2021-08-04 13:20] VITALS: BP 112/79; PULSE 62; TEMP 98.1
[2021-08-04] MEDS ORDERED: MAGNESIUM OXIDE 400 MG TAB PO STA (13:29)
[2021-08-04] MEDS ORDERED: POTASSIUM CHLORIDE ER 20 MEQ TAB.ER PO STA (17:49)
--- NOTE | 2021-08-04 17:49 | P.DS ---
Providers Date of admission: 08/02/21 13:04 Expected date of discharge: 08/04/21 Attending physician: Good Emanuel Consults: 08/03/21 12:20 Consult Physician Routine Consulting Provider: Gina Reyna Consult Reason/Comments: persistent hypokalemia Do you want consulting provider notified?: Yes 08/03/21 15:29 Consult Physician Routine Consulting Provider: Ahmet Rush Consult Reason/Comments: Abnormal EKG Do you want consulting provider notified?: Yes Primary care physician: Azul Cha [facility] Course: Chief Complaint: Tingling in the face This is a very pleasant 45-year-old patient follows with Dr. Azul Cha. Chronic stable medical conditions include hypertension, osteoarthritis, morbid obesity. Patient is scheduled for getting bariatric surgery by Dr. Adamson down the road. In the process patient is started off during Keeter diet for about 5 weeks. She has lost about 33 pounds. Today when she was at work she felt tingling in the cheeks and fluttering of the eyelids. Just felt out of sorts. Patient had chronic palpitations. 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 Patient was discovered to have a potassium of 2 and a magnesia normal 1.5. Patient had one occasion again was found to be hypokalemic and apparently that time her potassium was down to 0.8 potassium replacement was started today. Otherwise patient does not feel weak and tired. Patient recently had an EKG done in the family doctor's and now some abnormality and she is going to go down for a stress test. August 03: S1 1 potassium came back at 2.6. After being replaced came back at 3.1. More potassium was ordered. 24-hour urine potassium ordered along with nephrology consult. Discussed with patient given that long history of taking naproxen even though the creatinine is normal wanted to make sure she is not having potassium losing nephropathy. Was discussed with the patient has been out of the bedside. No muscle escalation/weakness August 04: Patient's potassium was again replaced overnight. Also put him back on a magnesia. Potassium this morning was 2.5. After replacement 3.7. Discussed with Dr. Reyna. She'll workup for hyperaldosteronism. Patient being discharged on 60 ME Kuse per day of potassium. Repeat potassium on Monday. Patient also follow-up with cardiology. 2-D echo is also pending. Discussed with patient and . Patient has an upcoming EGD this coming Monday. In anticipation for bariatric surgery per Dr. Adamson. 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 EYES: Pupils equal. Conjunctiva normal. HEENT: External appearance of nose and ears normal, oral cavity grossly normal. NECK: JVD not raised; masses not palpable. HEART: First and second heart sounds are normal; no edema. LUNGS: Respiratory rate normal; clear to auscultation. ABDOMEN: Soft, nontender, liver spleen not palpable, no masses palpable. PSYCH: Alert and oriented x3; mood and affect normal. MUSCULOSKELETAL:No Clubbing/cyanosis;muscles-grossly intact NEUROLOGICAL: Cranial nerves grossly intact; no facial asymmetry, power and sensation grossly intact. INVESTIGATIONS, reviewed in the clinical context: August 03: Potassium 2. 6 repeat 3.1. Magnesium 1.8 White count 6.7 hemoglobin 14.9 platelets 1822 sodium 135 potassium to repeat 2.7 creatinine 0.8 magnesia 1.5 total bilirubin 2.1 TSH 1.4 EKG tracing personally reviewed by me-no sinus rhythm, ST segment depression in anterior leads and inferior leads Chest x-ray film personally reviewed by me-lungs clear Assessment and plan: -Severe hypokalemia symptomatic in a patient who takes Keeto diet. Patient does not eat any fruits. Potassium is being replaced. Discussion will was had with the patient in regards to Keeter diet and also eating fruits-this is also worsened by patient taking hydrochlorothiazide which will be discontinued. 24-hour urine for potassium ordered. Patient will follow-up with Dr. Reyna. Discharged on 60 me daily of potassium. -Hypomagnesemia: Better Magnesium oxide 400 mg a day -Morbid obesity BMI 46.9 Patient is due to get bariatric surgery by Dr. Adamson. Scheduled for EGD on [place] -Essential hypertension Tenormin 25 mg a day -Osteoarthritis Motrin when necessary -Abnormal EKG. Patient scheduled for stress test as outpatient. No cardiac symptoms currently. Pending 2-D echo results. He'll follow up with Dr. SHONA Goncalves Disposition: Home Labs: KEVIN on 08/09/2021 Plan - Discharge Summary Discharge Rx Participant: No New Discharge Prescriptions: New Magnesium Oxide [Mag-Ox] 400 mg PO DAILY #30 tab atenoloL [Tenormin] 25 mg PO DAILY #30 tab Potassium Chloride ER [K-Dur 20] 20 meq PO TID #90 tab Continue Ibuprofen [Motrin Ib] 800 mg PO Q8H PRN PRN Reason: Pain Or Fever > 100.5 Ergocalciferol [Vitamin D2 (1250 Mcg = 36616 Iu)] 1,250 mcg PO HERNANDEZ Discontinued atenoloL [Tenormin] 50 mg PO DAILY hydroCHLOROthiazide [Hydrodiuril] 25 mg PO DAILY Potassium Chloride ER [K-Dur 10] 10 meq PO DAILY Discharge Medication List Ergocalciferol [Vitamin D2 (1250 Mcg = 81663 Iu)] 1,250 mcg PO HERNANDEZ 08/02/21 [History] Ibuprofen [Motrin Ib] 800 mg PO Q8H PRN 08/02/21 [History] Magnesium Oxide [Mag-Ox] 400 mg PO DAILY #30 tab 08/04/21 [Rx] Potassium Chloride ER [K-Dur 20] 20 meq PO TID #90 tab 08/04/21 [Rx] atenoloL [Tenormin] 25 mg PO DAILY #30 tab 08/04/21 [Rx] Follow up Appointment(s)/Referral(s): Gina Reyna MD [STAFF PHYSICIAN] - 1 Week Karina Goncalves MD [STAFF PHYSICIAN] - 1 Week Azul Cha MD [Primary Care Provider] - 1-2 days Activity/Diet/Wound Care/Special Instructions: KEVIN 08/09/21
--- NOTE | 2021-08-05 07:17 | ECHOF ---
Referral Reason:Abnormal EKG MEASUREMENTS -------- HEIGHT: 162.6 cm WEIGHT: 123.8 kg BP: RVIDd: 2.9 cm (< 3.3) IVSd: 1.2 cm (0.6 - 1.1) LVIDd: 4.3 cm (3.9 - 5.3) LVPWd: 1.4 cm (0.6 - 1.1) IVSs: 1.5 cm LVIDs: 3.6 cm LVPWs: 2.0 cm LA Diam: 3.8 cm (2.7 - 3.8) LAESV Index (A-L): 27.54 ml/m Ao Diam: 2.8 cm (2.0 - 3.7) AV Cusp: 2.2 cm (1.5 - 2.6) MV EXCURSION: 20.824 mm (> 18.000) MV EF SLOPE: 79 mm/s (70 - 150) EPSS: 1.4 cm MV E Johan: 0.75 m/s MV DecT: 210 ms MV A Johan: 0.69 m/s MV E/A Ratio: 1.09 RAP: 5.00 mmHg RVSP: 22.55 mmHg FINDINGS -------- Sinus rhythm. This was a technically adequate study. Morbid Obesity The left ventricular size is normal. There is mild concentric left ventricular hypertrophy. Overa ll left ventricular systolic function is low-normal with, an EF between 50 - 55 %. The right ventricle is normal in size. Normal LA size by volume 22+/-6 ml/m2. The right atrial size is normal. The aortic valve is trileaflet, and appears structurally normal. No aortic stenosis or regurgitation. Mild mitral regurgitation is present. Mild tricuspid regurgitation present. Right ventricular systolic pressure is normal at < 35 mmHg. There is no pulmonic regurgitation present. There is no pericardial effusion. CONCLUSIONS -------- 1. The left ventricular size is normal. 2. There is mild concentric left ventricular hypertrophy. 3. Overall left ventricular systolic function is low-normal with, an EF between 50 - 55 %. 4. The right ventricle is normal in size. 5. Normal LA size by volume 22+/-6 ml/m2. 6. The right atrial size is normal. 7. The aortic valve is trileaflet, and appears structurally normal. No aortic stenosis or regurgitati on. 8. Mild mitral regurgitation is present. 9. Mild tricuspid regurgitation present. 10. There is no pericardial effusion. GLASS W[employer]ER [employer] CARRIER: Joyce Inman RDCS
== END 2021-08-04 18:25 | disposition home or self-care (01) | DRG 641 ==
LOC: EC 10:18 → 5NMEDONC 13:04
PROVIDERS: ADMIT Hospitalist; ATTEND Hospitalist
DX: E87.6 Hypokalemia (principal); Z68.42 Body mass index [BMI] 45.0-49.9, adult; I10 Essential (primary) hypertension; T50.2X5A Adverse effect of carbonic-anhydrase inhibitors, benzothiadiazides and other diuretics, initial encounter; I08.1 Rheumatic disorders of both mitral and tricuspid valves; M19.012 Primary osteoarthritis, left shoulder; E83.42 Hypomagnesemia; E66.01 Morbid (severe) obesity due to excess calories; E78.5 Hyperlipidemia, unspecified; M17.0 Bilateral primary osteoarthritis of knee; R94.31 Abnormal electrocardiogram [ECG] [EKG]; Z86.16 Personal history of COVID-19; Z82.49 Family history of ischemic heart disease and other diseases of the circulatory system; Z79.899 Other long term (current) drug therapy; X58.XXXA Exposure to other specified factors, initial encounter; Z98.51 Tubal ligation status
CPT/HCPCS: 36415; 71046; 80048; 80053; 82088; 83735; 84100; 84132; 84244; 84443; 84484; 85025; 85027; 85610; 93005; 93306; 96365; 96366; 99285

== ENCOUNTER → 2021-08-06 | Outpatient (CLI) | payer BC, OTHER ==
--- NOTE | 2021-08-06 15:26 | EST ---
EXERCISE STRESS AGE: 45 SEX: F HT: 5'4" WT: 276 lbs. PROTOCOL: Cam STAGE: 3 DURATION OF EXERCISE: 7:20 HEART RATE REST: 71 BLOOD PRESSURE REST: 117/76 MAXIMUM HEART RATE ACHIEVED: 152 MAXIMUM BLOOD PRESSURE: 193/112 85% MPHR: 150 100% MPHR: 176 METS: 9.5 INDICATIONS: Abnormal EKG RESULTS: Baseline EKG revealed normal sinus rhythm with precordial and inferior ST and T-wave abnormality of nonspecific type. Patient walked for 7 minutes 20 seconds achieved a maximal heart rate of 152 beats per minute which is more than 85% of predicted maximal. She developed fatigue, shortness of breath but did not have angina. There was a lot of artifact on the EKG and nonspecific ST-T changes were seen with exercise. The T-wave inversions and ST abnormality persisted. Technically, this is an inconclusive stress test with no evidence of angina or any significant arrhythmia. Exercise capacity was limited. IMPRESSION: 1. Limited exercise capacity. 2. Inconclusive stress test because of resting EKG changes to begin with. 3. Patient did not have any angina and there was no significant arrhythmia. MMODL / IJN: [id number] /
== END | disposition home or self-care (01) ==
LOC: RADNMMAIN 10:57
PROVIDERS: ATTEND Family Medicine
DX: R94.31 Abnormal electrocardiogram [ECG] [EKG] (principal)
CPT/HCPCS: 93017

== ENCOUNTER 2021-08-09 07:46 | Day surgery (SDC) | payer BC, OTHER ==
[2021-08-06 12:34] VITALS: BMI 48.8
--- NOTE | 2021-08-09 07:42 | P.GSHP ---
History of Present Illness H&P Date: 08/09/21 CHIEF COMPLAINT: GERD HISTORY OF PRESENT ILLNESS: The patient is a 45-year-old female who presents reports gastroesophageal reflux disease. Upper endoscopy was offered for further evaluation and management. PAST MEDICAL HISTORY: Please see list. PAST SURGICAL HISTORY: Please see list. MEDICATIONS: Please see list. ALLERGIES: Please see list. SOCIAL HISTORY: No illicit drug use FAMILY HISTORY: No reports of Crohn disease or ulcerative colitis. REVIEW OF ORGAN SYSTEMS: CONSTITUTIONAL: No reports of fevers or chills. GI: Denies any blood in stools or constipation. PHYSICAL EXAM: VITAL SIGNS: Stable GENERAL: Well-developed and pleasant in no acute distress. HEENT: No scleral icterus. Extraocular movements grossly intact. Moist buccal mucosa. NECK: Supple without lymphadenopathy. CHEST: Unlabored respirations. Equal bilateral excursions. CARDIOVASCULAR: Regular rate and rhythm. Distal 2+ pulses. ABDOMEN: Soft, nondistended. MUSCULOSKELETAL: No clubbing, cyanosis, or edema. ASSESSMENT: 1. Gastroesophageal reflux disease PLAN: 1. Recommend proceeding with an upper endoscopy Past Medical History Past Medical History: Hypertension, Osteoarthritis (OA) Additional Past Medical History / Comment(s): chronic left shoulder pain, arthritis bilateral knees, lowback pain, History of Any Multi-Drug Resistant Organisms: None Reported Past Surgical History: Section, Joint Replacement, Orthopedic Surgery, Tubal Ligation Additional Past Surgical History / Comment(s): left shoulder X2, bilateral Arthoscopic knee surgery, TOTAL LEFT SHOULDER Past Anesthesia/Blood Transfusion Reactions: Previous Problems w/ Anesthesia, Postoperative Nausea & Vomiting (PONV) Additional Past Anesthesia/Blood Transfusion Reaction / Comment(s): slow to wake up Smoking Status: Never smoker - Past Family History Father Family Medical History: Hyperlipidemia, Hypertension Additional Family Medical History / Comment(s): pacemaker for arrhythmia Mother Family Medical History: Hyperlipidemia, Hypertension Medications and Allergies Home Medications Medication Instructions Recorded Confirmed Type Ergocalciferol [Vitamin D2 (1250 1,250 mcg PO HERNANDEZ 08/02/21 08/06/21 History Mcg = 75084 Iu)] Ibuprofen [Motrin Ib] 800 mg PO Q8H PRN 08/02/21 08/06/21 History Magnesium Oxide [Mag-Ox] 400 mg PO DAILY #30 tab 08/04/21 08/06/21 Rx Potassium Chloride ER [K-Dur 20] 20 meq PO TID #90 tab 08/04/21 08/06/21 Rx atenoloL [Tenormin] 25 mg PO DAILY #30 tab 08/04/21 08/06/21 Rx Allergies Allergy/AdvReac Type Severity Reaction Status Date / Time No Known Allergies Allergy Verified 08/06/21 11:51
[~2021-08-09 07:46] MED LIST: LACTATED RINGERS 1,000 ML IV SCH; LIDOCAINE 1% (10MG/ML) FOR IV START INTRADERMA PRN
[2021-08-09] MEDS ORDERED: PROPOFOL 10 MG/ML 20 ML VIAL IV ONE (08:33)
[2021-08-09] MEDS ORDERED: LIDOCAINE 1% INJ 10MG/ML (20 ML MDV) ONE (08:33)
[2021-08-09 08:36] VITALS: RESP 20; TEMP 98
--- NOTE | 2021-08-09 09:12 | P.PCN ---
Date of Procedure: 08/09/21 Description of Procedure: PREOPERATIVE DIAGNOSIS: Gastroesophageal reflux disease. Morbid obesity. POSTOPERATIVE DIAGNOSIS: Gastritis. Gastroesophageal reflux disease. Morbid obesity. OPERATION: Esophagogastroduodenoscopy with biopsies along antrum. SURGEON: Florence Root MD ANESTHESIA: MAC. INDICATIONS: The patient is a 45-year-old female who presents with reflux disease. Benefits and risks of the procedure were described. Informed consent was obtained. DESCRIPTION: The patient was brought into the endoscopy suite and laid in the left lateral decubitus position. An Olympus gastroscope was passed along the posterior oropharynx down to the distal esophagus where the squamocolumnar junction was encountered at 36 cm from the incisors. The stomach was entered and no bile reflux was found. Additional findings are listed below. Biopsies with cold forceps were obtained of the antrum. The first through third portion of the duodenum was examined and unremarkable. Retroflexion of the scope confirmed Hill grade 2 lower esophageal valve. The squamocolumnar junction demonstrated LA grade B erosive esophagitis. The stomach was desufflated. The patient tolerated the procedure well. FINDINGS: Squamocolumnar junction 36 cm from the incisors. Diaphragmatic hiatus at 36 cm. Hill grade 2 lower esophageal valve. LA grade B erosive esophagitis. No active duodenitis. Chronic gastritis, NSAID-induced RECOMMENDATIONS: Omeprazole 40 mg daily for 2 weeks Plan - Discharge Summary Discharge Rx Participant: No New Discharge Prescriptions: New Omeprazole [PriLOSEC] 40 mg PO DAILY #14 cap Continue Magnesium Oxide [Mag-Ox] 400 mg PO DAILY #30 tab atenoloL [Tenormin] 25 mg PO DAILY #30 tab Ergocalciferol [Vitamin D2 (1250 Mcg = 58014 Iu)] 1,250 mcg PO HERNANDEZ Potassium Chloride ER [K-Dur 20] 20 meq PO TID #90 tab Discontinued Ibuprofen [Motrin Ib] 800 mg PO Q8H PRN PRN Reason: Pain Or Fever > 100.5 Discharge Medication List Ergocalciferol [Vitamin D2 (1250 Mcg = 19764 Iu)] 1,250 mcg PO HERNANDEZ 08/02/21 [History] Magnesium Oxide [Mag-Ox] 400 mg PO DAILY #30 tab 08/04/21 [Rx] Potassium Chloride ER [K-Dur 20] 20 meq PO TID #90 tab 08/04/21 [Rx] atenoloL [Tenormin] 25 mg PO DAILY #30 tab 08/04/21 [Rx] Omeprazole [PriLOSEC] 40 mg PO DAILY #14 cap 08/09/21 [Rx] [facility] up [facility]ment[facility]Ref[facility] [place] [facility] [place] [facility] Patient Instructions/Handouts: Diet for Stomach Ulcers and Gastritis (ED), Gastritis (DC) Activity/Diet/Wound Care/Special Instructions: Avoid ibuprofen, naproxen, aspirin during treatment including Celebrex Discharge Disposition: HOME SELF-CARE
[2021-08-09 09:17] VITALS: BP 121/80; PULSE 62
== END 2021-08-09 09:46 | disposition home or self-care (01) ==
LOC: ORWHC2ENDO 07:46
PROVIDERS: ATTEND Surgery Plastic and Reconstructive Surgery
DX: K29.50 Unspecified chronic gastritis without bleeding (principal); K22.10 Ulcer of esophagus without bleeding; I10 Essential (primary) hypertension; M19.90 Unspecified osteoarthritis, unspecified site; G89.29 Other chronic pain; M25.512 Pain in left shoulder; M17.4 Other bilateral secondary osteoarthritis of knee; M54.50 Low back pain, unspecified; Z98.891 History of uterine scar from previous surgery; Z98.51 Tubal ligation status; Z96.612 Presence of left artificial shoulder joint; Z98.890 Other specified postprocedural states; Z83.438 Family history of other disorder of lipoprotein metabolism and other lipidemia; Z82.49 Family history of ischemic heart disease and other diseases of the circulatory system; Z95.0 Presence of cardiac pacemaker; Z79.899 Other long term (current) drug therapy; E66.01 Morbid (severe) obesity due to excess calories; Z68.43 Body mass index [BMI] 50.0-59.9, adult
CPT/HCPCS: 81025; 88305; 43239; J2001; J2704

== ENCOUNTER → 2021-08-23 | Outpatient (CLI) | payer BC, OTHER ==
[2021-08-23 11:42] VITALS: BMI 51.7
== END ==
LOC: BARWHC3 08:40
PROVIDERS: ATTEND Surgery Plastic and Reconstructive Surgery
DX: E66.01 Morbid (severe) obesity due to excess calories (principal); Z71.3 Dietary counseling and surveillance; Z68.43 Body mass index [BMI] 50.0-59.9, adult
CPT/HCPCS: 97804

== ENCOUNTER → 2021-10-07 | Outpatient (CLI) | payer BC, OTHER ==
[2021-10-08 05:26] LABS: Basophils # (A) 0.05 X 10*3/uL (0.00-0.10); Basophils % (A) 0.7 %; Eosinophils # (A) 0.03 X 10*3/uL (0.04-0.35); Eosinophils % (A) 0.4 %; HCT 42.6 % (37.2-46.3); Immature Grans, Automated 0.1 %; Lymphocytes # (A) 1.95 X 10*3/uL (0.90-5.00); Lymphocytes % (A) 27.7 %; MCH 29.4 pg (27.0-32.0); MCHC 32.9 g/dL (32.0-37.0); MCV 89.5 fL (80.0-97.0); Mean Platelet Volume 13.7 fL (9.5-12.2); Monocytes % (A) 8.5 %; NRBC Per 100 WBC 0 /100 WBCS (0.0-0.0); Neutrophils # (A) 4.41 X 10*3/uL (1.80-7.70); Neutrophils % (A) 62.6 %; Platelet Count 171 X 10*3/uL (140-440); RBC 4.76 X 10*6/uL (4.10-5.20); RDW 13.8 % (11.5-14.5); WBC 7.05 X 10*3/uL (4.50-10.00)
[2021-10-08 05:27] LABS: African American GFR (CKD) 103.2 (60.0-200.0); Albumin 3.8 g/dL (3.8-4.9); Albumin/Globulin Ratio 1.06 (1.60-3.17); Anion Gap 16.2 mmol/L (10.00-18.00); BUN/Creat Ratio 16.75 Ratio (12.00-20.00); Blood Urea Nitrogen 13.4 mg/dL (9.0-27.0); Calcium 9.4 mg/dL (8.7-10.3); Carbon Dioxide 24.8 mmol/L (20.0-27.5); Globulin 3.6 g/dL (1.6-3.3); Potassium 3.4 mmol/L (3.5-5.5); Total Protein 7.4 g/dL (6.2-8.2)
== END | disposition home or self-care (01) ==
LOC: LABPAT 15:09
PROVIDERS: ATTEND Surgery Plastic and Reconstructive Surgery
DX: Z01.812 Encounter for preprocedural laboratory examination (principal)
CPT/HCPCS: 36415; 80053; 85025

== ENCOUNTER 2021-10-11 13:47 | Inpatient (IN) | payer BC, OTHER ==
--- NOTE | 2021-10-11 07:51 | P.GSHP ---
History of Present Illness H&P Date: 10/11/21 CHIEF COMPLAINT: Morbid obesity HISTORY OF PRESENT ILLNESS: Madina Murphy is a 45-year-old female who comes with morbid obesity for many years. SShe has tried keto diet, intermittent fasting, including low carb diets. She is looking into the gastric bypass. She has been trying to lose weight since 2015. She reports Achilles tendon pain. She has lower back pain, right hip pain and left calf muscle pain that was torn. She has high blood pressure. At height of 5 feet 3.5 inches, her ideal body weight is 140 pounds. Her highest weight is 346 pounds, body mass index 52.3. She comes in 287 pounds. Her body mass index is 43.8. She is 124 pounds overweight. PAST MEDICAL HISTORY: 1. Morbid obesity due to excess calories 2. Body mass index of 52.3 3. Hypertensive heart disease 4. Osteoarthritis lower back 5. Osteoarthritis bilateral knees 6. Post operative nausea and vomiting 7. Osteoarthritis right hip PAST SURGICAL HISTORY: 1. Section 2. Tubal ligation 3. Bilateral knee arthroscopy 4. Left shoulder repair x 2 5. Cholecystectomy HOME MEDICATIONS: ALLERGIES: SOCIAL HISTORY: Denies tobacco use. FAMILY HISTORY: No family history of ulcerative colitis disease or Crohn's disease. Family history of morbid obesity. No lupus in the family. 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 Her mother is overweight and brother. Had stomach cancer in grandfather. REVIEW OF ORGAN SYSTEMS: CONSTITUTIONAL: At height of 5 feet 3.5 inches, her ideal body weight is 140 pounds. Her highest weight is 346 pounds, body mass index 52.3. She comes in 287 pounds. Her body mass index is 43.8. She is 124 pounds overweight. HEENT: Denies any active troubles with vision or hearing. ENDOCRINE: Denies diabetes. Denies hypothyroidism. CARDIOVASCULAR: Denies past reports of palpitations or heart attacks or chest pain. Has hypertensive heart disease. RESPIRATORY: Has daytime somnolence and snores. GASTROINTESTINAL: Denies any bright red blood per rectum. No diarrhea. No constipation. Has gastroesophageal reflux disease. GENITOURINARY: Denies bladder urgency. No recent blood in urine MUSCULOSKELETAL: Has lower back pain and joint pain. Denies history of bilateral lower extremity edema. NEURO: Denies chronic migraines. No seizure disorders. PSYCH: Denies depression. No suicidal ideation. Denies anxiety. RHEUMATOLOGIC: No lupus. No rheumatoid arthritis. HEMATOLOGIC: Denies any abnormal bleeding or bruising. Denies past history of DVTs. SKIN: No rash. No skin cancer. PHYSICAL EXAM: VITAL SIGNS: Height 5 foot 3.5 inches, weight 299 pounds. BMI 52.3 GENERAL: Well-developed in no acute distress. HEENT: No scleral icterus. Extraocular movements grossly intact. Hears conversational speech. No nasal drainage. NECK: Supple without lymphadenopathy. CHEST: Nonlabored respirations with equal bilateral excursions. CARDIOVASCULAR: Regular rate and regular rhythm. Distal 2+ pulses. ABDOMEN: Obese, soft, nontender, nondistended. MUSCULOSKELETAL: No clubbing, cyanosis. NEURO: No focal or lateralizing signs. Cranial nerves 2 through 12 grossly within normal limits. PSYCH: Appropriate affect. Alert and oriented to person, place and time. SKIN: Good skin turgor. Well perfused. LABS: Urine drug screen positive for benzodiazepine ASSESSMENT: 1. Morbid obesity due to excess calories 2. Body mass index of 52.3 3. Hypertensive heart disease 4. Osteoarthritis lower back 5. Osteoarthritis bilateral knees 6. Post operative nausea and vomiting 7. Osteoarthritis right hip 8. Urine drug screen positive for benzodiazepine PLAN: 1. Bariatric options between a sleeve, band and a Johana-en-Y gastric bypass were reviewed in detail. The patient elected for a gastric bypass. Robotic assisted approach described. 2. The [place] [facility] Data was also reviewed with benefits and risks as described. 3. An 8 page second-generation bariatric consent form was reviewed in detail including potential of bleeding, infection, leaks, adequate weight loss, nutritional deficiencies which the patient demonstrated understanding of the risks. 4. A 2 week high-protein low caloric 800 kcal diet described to address hepatomegaly. 5. Preoperative labs including complete metabolic panel and CBC with type and screen recommended. 6. DVT prophylaxis per [place] [facility]. 7. Antibiotic prophylaxis. 8. Inpatient hospitalization anticipated for more than 2 nights. 9. All questions and concerns were addressed with the patient. 10. She is at elevated risk for perioperative complications with illicit use of benzodiazepine 11. Non-narcotic pain management Past Medical History Past Medical History: Hypertension, Osteoarthritis (OA) Additional Past Medical History / Comment(s): chronic left shoulder pain, arthritis bilateral knees, lowback pain, hx. of low potassium w/HCTZ History of Any Multi-Drug Resistant Organisms: None Reported Past Surgical History: Section, Cholecystectomy, Orthopedic Surgery, Tubal Ligation Additional Past Surgical History / Comment(s): left shoulder X2, bilateral arthoscopic knee surgery Past Anesthesia/Blood Transfusion Reactions: Motion Sickness, Postoperative Nausea & Vomiting (PONV) Additional Past Anesthesia/Blood Transfusion Reaction / Comment(s): slow to wake up Smoking Status: Never smoker - Past Family History Father Family Medical History: Hyperlipidemia, Hypertension Additional Family Medical History / Comment(s): pacemaker for arrhythmia Mother Family Medical History: Hyperlipidemia, Hypertension Medications and Allergies Home Medications Medication Instructions Recorded Confirmed Type Ergocalciferol [Vitamin D2 (1250 1,250 mcg PO HERNANDEZ 08/02/21 10/07/21 History Mcg = 97814 Iu)] Spironolactone [Aldactone] 50 mg PO DAILY 10/07/21 10/07/21 History atenoloL [Tenormin] 50 mg PO DAILY 10/07/21 10/07/21 History Allergies Allergy/AdvReac Type Severity Reaction Status Date / Time No Known Allergies Allergy Verified 10/07/21 11:44
[~2021-10-11 13:47] MED LIST changes: +ACETAMINOPHEN TAB 500 MG TAB PO PRN; +CHLORHEXIDINE GLUCONATE 15 ML CUP MUCOUS MEM PRN; +GABAPENTIN 300 MG CAP PO PRN; +HEPARIN SODIUM,PORCINE/PF 5,000 UNIT/0.5 ML SYRINGE SQ PRN; -LACTATED RINGERS 1,000 ML IV SCH; -LIDOCAINE 1% (10MG/ML) FOR IV START INTRADERMA PRN; +PANTOPRAZOLE 40 MG/10 ML VIAL IVP PRN; +SCOPOLAMINE 1 MG/72 HR PATCH TRANSDERM SCH
[2021-10-11] MEDS ORDERED: ONDANSETRON 4 MG/2 ML VIAL ONE ×2 (13:55→15:16)
[2021-10-11] MEDS ORDERED: HEPARIN SODIUM,PORCINE/PF 5,000 UNIT/0.5 ML SYRINGE SQ ONE (13:58)
[2021-10-11] MEDS ORDERED: LACTATED RINGERS 1,000 ML IV ONE ×5 (14:21→18:49)
[2021-10-11 14:41] LABS: ALT 25 U/L (4-34); AST 26 U/L (14-36); African American GFR (CKD) >90 (>60 ml/min/1.73 sqM); Albumin 4.2 g/dL (3.5-5.0); Alkaline Phosphatase 79 U/L (38-126); Anion Gap 13 mmol/L; Blood Urea Nitrogen 11 mg/dL (7-17); Carbon Dioxide 26 mmol/L (22-30); Chloride 100 mmol/L (98-107); Glucose 81 mg/dL (74-99); Non-African American GFR(CKD) >90 (>60 ml/min/1.73 sqM); Potassium 3.9 mmol/L (3.5-5.1); Sodium 139 mmol/L (137-145); Total Bilirubin 1.6 mg/dL (0.2-1.3); Total Protein 7.7 g/dL (6.3-8.2)
[2021-10-11] MEDS ORDERED: SUCCINYLCHOLINE CHLORIDE 100 MG/5 ML SYR IV ONE (15:16)
[2021-10-11] MEDS ORDERED: LIDOCAINE 2% INJ 20 MG/ML (2 ML VIAL) ONE (15:16)
[2021-10-11] MEDS ORDERED: MIDAZOLAM 2 MG/2 ML VIAL ONE (15:16)
[2021-10-11] MEDS ORDERED: ePHEDrine 50 MG/ML 1 ML VIAL ONE (15:16)
[2021-10-11] MEDS ORDERED: ROCURONIUM 10 MG/ML (5 ML VIAL) IV ONE (15:16)
[2021-10-11] MEDS ORDERED: DEXAMETHASONE SOD PHOSPHATE 10 MG/ML 1 ML VIAL ONE (15:16)
[2021-10-11] MEDS ORDERED: NEOSTIGMINE 1 MG/ML 10 ML VIAL ONE (15:16)
[2021-10-11] MEDS ORDERED: GLYCOPYRROLATE 0.2 MG/ML 2 ML VIAL ONE (15:16)
[2021-10-11] MEDS ORDERED: PROPOFOL 10 MG/ML 20 ML VIAL IV ONE (15:16)
[2021-10-11] MEDS ORDERED: fentaNYL (PF) 50 MCG/ML 2 ML AMP ONE (15:16)
[2021-10-11] MEDS ORDERED: CHLORHEXIDINE GLUCONATE 15 ML CUP MUCOUS MEM ONE (15:19)
--- NOTE | 2021-10-11 15:23 | P.HPADDEND ---
H&P Addendum H&P Addendum Date: 10/11/21 Benefits and risks of gastric bypass surgery reviewed. Patient had initially declined Zofran including Decadron antiemetics. Additionally, alternatives were reviewed in the presence of severe peritoneal adhesions be identified within the body. Patient opted for lysis of adhesions with deferred gastric bypass.
[2021-10-11] MEDS ORDERED: LIDOCAINE 0.5%-EPI 1:200,000 50 ML VIAL SQ ONE (15:52)
[2021-10-11] MEDS ORDERED: diphenhydrAMINE 50 MG/ML 1 ML VIAL IVP PRN (18:27)
[2021-10-11] MEDS ORDERED: NALOXONE 0.4 MG/ML 1 ML VIAL IV PRN ×2 (18:27→20:20)
[2021-10-11] MEDS ORDERED: TRIMETHOBENZAMIDE 100 MG/ML 2 ML VIAL IM PRN (18:30)
--- NOTE | 2021-10-11 18:35 | P.OP ---
Date of Procedure: 10/11/21 Description of Procedure: SURGEON: ROSEANNE NEFF MD PREOPERATIVE DIAGNOSES: 1. Morbid obesity due to excess calories 2. Body mass index of 52.3 initial 3. Hypertensive heart disease 4. Osteoarthritis lower back 5. Osteoarthritis bilateral knees 6. Post operative nausea and vomiting 7. Osteoarthritis right hip POSTOPERATIVE DIAGNOSES: 1. Morbid obesity due to excess calories 2. Body mass index of 52.3, initial 3. Hypertensive heart disease 4. Osteoarthritis lower back 5. Osteoarthritis bilateral knees 6. Post operative nausea and vomiting 7. Osteoarthritis right hip 8. Pelvic peritoneal adhesions 9. Left upper quadrant peritoneal adhesions OPERATION: 1. Robotic assisted da Suresh Xi laparoscopic Nati-en-Y gastric bypass, 125 cm antecolic antegastric Nati limb, with 21 mm EEA. 2. Intraoperative esophagogastrojejunoscopy. ANESTHESIA: GETA and local ESTIMATED BLOOD LOSS: 10 mL SPECIMENS REMOVED: None. COMPLICATIONS: NONE. Operative Findings: 1. Biliopancreatic limb 60 cm 2. Bypass performed using 125 cm nati limb secondary to avoid increased tension at 150 cm. 3. Jejunojejunostomy and Mensah's defects closed using 2-0 V-LOC, green 4. Leak test negative with gastrojejunal anastomosis patent and hemostatic. 5. Reinforcement sutures were placed along the gastrojejunal anastomosis at 9:00 and 3:00 and 12:00. INDICATIONS: Madina Murphy is a 45-year-old female who comes with morbid obesity for many years. She is looking into the gastric bypass. At height of 5 feet 3.5 inches, her ideal body weight is 140 pounds. Her highest weight is 346 pounds, body mass index 52.3. She comes in 287 pounds. Her body mass index is 43.8. She is 124 pounds overweight. A second-generation bariatric consent form was described in detail including the possibility of protein malnutrition, leaks, gastrojejunal stricture, venous thrombosis, need for further surgery for which she demonstrated understanding. Benefits and risks of the procedure were described at length. Informed consent was obtained. DESCRIPTION: The patient was brought into the operating room theater. She was placed supine. She had received heparin subcutaneously for DVT prophylaxis. Additionally Peridex oral solution as an oral decontaminant was placed per anesthesia. After general induction, the abdomen was prepped and draped in standard sterile fashion. Ioban draping was placed along the abdomen. Lake catheter was avoided. A robotic da Suresh Xi system was prepped and primed. Incisions were proposed at 15 cm from the xiphoid. Proposed port sites were marked with indelible marker along the anterior axillary line bilaterally, mid clavicular line bilaterally with each port marked 10 cm from each other. The robotic stapler port was marked for the right midclavicular line including along the left midclavicular line. A 5 mm 0 degrees laparoscopic trocar entry was performed along the left upper quadrant. The abdomen was insufflated to 15 mmHg pressure, which she tolerated well. Diagnostic laparoscopy demonstrated no injury to bowel, viscera, or mesentery. The liver was consistent with her 2-week protein diet. Presence of fatty liver disease was found. An 8 mm camera port was placed left lateral to the umbilicus at the epigastrium, 15 cm distal to the xiphoid. Next, 12-mm robot stapler port was placed along the right mid abdomen. An 12 mm port was exchanged along the left upper quadrant. An 8 mm port was placed on the left lateral abdominal wall under direct visualization Please note that the ports were placed 18 to 20 cm away from the target anatomy of the stomach. Care was taken to check that each robotic arm was safely away from collision with the bed or the patient. At the epigastrium, a medium sized Raisa liver retractor was placed under direct visualization with the Iron Hvac Service Technician placed under the right shoulder of the patient. The patient was repositioned in reverse Trendelenburg position at 21-degrees after lowering the bed. The robot was docked over the patient. Using grasper for arm 3, a grasper for arm 1, including vessel sealer for arm 4, the robotic system was docked and primed as described. Instruments were interchanged by the executive assistant to general counsel including endoscissors, the needle warehouse delivery driver, and stapler. I had sat at the console. Severe left upper quadrant omentum to abdominal wall adhesions were identified requiring lysis of adhesions using vessel sealer. Additionally, within the pelvis the dome of the uterus was adherent to the abdominal wall and undisturbed. Next, the transverse mesocolon was reflected into the upper abdomen for the jejunojejunostomy portion of the case. The small bowel was investigated to 200 cm from the ligament of Treitz without adhesions identified. The ligament of Treitz was identified and measured 60 cm antegrade and marked using 3-0 Silk. The jejunum was divided at the 60 cm point using 60-mm white loads above the suture measurement. The biliopancreatic limb was held in place. The Nati limb was measured 125 cm in an antegrade fashion to avoid tension along the proposed gastrojejunal anastomosis. At 125 cm along the anti-mesenteric border of the Nati limb, a jejunojejunostomy was proposed whereby enterotomies were created along the biliopancreatic limb including the Nati limb using a Bovie cautery. A stay suture of 3-0 Slik was placed to align and create the anastomosis. The enterotomies along the anti- mesenteric borders were created followed by unidirectional fire from the patient's right side using 60 mm white loads Smart technology robotic stapler. The jejunojejunostomy was found to be hemostatic. The enterotomy was closed after horizontal mattress stitch of 3-0 silk used to elevate the enterotomy followed by closure with the robotic stapler blue load. The jejunal limb was temporarily tacked along the left upper quadrant. Attention was now brought to the creation of the gastrojejunostomy. Along the lesser curvature of the stomach, dissection was made along the retrogastric space to allow first firing of the robotic staple. Green loads and blue loads of 60 mm staplers were used to divide the stomach to create the gastric pouch. The patient was then prepared for placement of a Orvil. A 21-mm Orvil was selected for placement by the nurse heating operators engineer. The Orvil tubing was placed anterior to the staple line of the gastric pouch and brought out through the left inferior lateral port. I re-scrubbed into the case. The robotic arms were temporarily undocked. The Orvil was then carefully and successfully navigated with the help of the nurse heating operators engineer into the gastric pouch. The sutures were identified and divided. The tubing was from the 21 mm anvil. As the Orvil had been placed, the jejunal limb was brought proximally into the upper abdomen. No torsion was found upon the Nati limb. No tension was identified as the limb was brought along the upper abdomen. The jejunal limb was previously opened using hook cautery. The 21-mm EEA stapler was brought through the left anterior lateral port site from the left side. The EEA stapler was brought through the open jejunal limb and its needle was deployed at the antimesenteric border where the anvil were mated for approximately 1 minute upon firing. The stapler was removed after irrigating the shaft of the instrument with warm normal saline. Donuts were found to be intact and on both sides. The da Suresh Xi robot arms were then re-docked. I sat at the console. The open jejunal limb defect was closed using 60 mm blue loads after releasing any tension from the blind jejunal limb. No redundancy was present for jejunal limb. The transverse mesocolon was divided for the nati limb. Reinforcement sutures were placed along the gastrojejunal anastomosis and placed along the 9:00, 12:00 and 3 o'clock position using 3-0 Vicryl. A small sponge thread was cut from the anastomosis. The Mensah and jejunojejunostomy mesenteric defect was closed using 2-0 V LOC, green. I then went to the head of the bed to perform the esophagogastrojejunoscopy and a leak test. An Olympus gastroscope was passed alongthe posterior oropharynx which was unremarkable for any injury to the vocal cords. The scope was passed down to the proximal portion of the pouch, whereby no active bleeding was encountered. Excellent visualization of the gastrojejunostomy anastomosis, including the Nati limb was encountered with endoscopic image obtained. The anastomosis was found to be patent without active bleeding. Residual blood was suctioned from the gastric pouch. The gastrointestinal tract was desufflated. No evidence of intraoperative leak was encountered as the gastric pouch and anastomosis were submerged under normal saline solution. The robot was then undocked. I then went back to the bedside of the patient, whereby with coordinated effort of the executive assistant to general counsel, irrigation was aspirated from the upper abdominal cavity. Tisseel was placed circumferentially over the anastomosis of the gastrojejunostomy. The fascial defect of the EEA stapler was closed using Malcolm Giraldo and 0 Vicryl. All instruments and pneumoperitoneum were evacuated from the abdominal cavity. The port correlating with the EEA stapler device was cleansed with normal saline solution and hydrogen peroxide. The rest of incisions were reapproximated using 4-0 Monocryl in an interrupted subcuticular fashion. Local anesthetic was infiltrated along the skin for postop analgesia. Liquid glue was applied to the skin. OptiFoam dressing was placed along the EEA stapler site. At the end of the procedure, needle, sponge and instrument count had been verified correct by the surgical instrument technician. The patient had tolerated the procedure well and was extubated and taken to the postanesthesia unit in stable condition. (Due to shortage supply, 21-mm Orvil used for case)
[2021-10-11] MEDS ORDERED: fentaNYL (PF) 50 MCG/ML 2 ML AMP IVP PRN (18:36)
[2021-10-11] MEDS: MAGNESIUM SULFATE-D5W PMX 1 GM in DEXTROSE/WATER 1 100ML.BAG IVPB SCH ×2 (20:12→21:36)
[2021-10-11] MEDS ORDERED: fentaNYL PCA 500 MCG/50 ML BAG IV PRN (20:20)
[2021-10-11] MEDS: ALBUTEROL NEBULIZED 2.5 MG/3 ML INHALATION SCH (20:50)
[2021-10-11] MEDS: 0.9% NACL WITH KCL 20 MEQ/L 1,000 ML IV SCH (21:36)
[2021-10-11] MEDS: PANTOPRAZOLE 40 MG/10 ML VIAL IV SCH (21:36)
[2021-10-11] MEDS: HEPARIN SODIUM,PORCINE/PF 5,000 UNIT/0.5 ML SYRINGE SQ SCH (21:37)
[2021-10-11] MEDS: SIMETHICONE 40 MG/0.6 ML DROPS 2,000 MG/30 ML BOTTLE PO SCH (23:16)
[2021-10-11] MEDS: ONDANSETRON 4 MG/2 ML VIAL IVP SCH (23:16)
[2021-10-11] MEDS: ACETAMINOPHEN IV (For NPO) 1,000 MG in EMPTY BAG 1 BAG IVPB SCH (23:16)
[2021-10-12] MEDS: 0.9% NACL WITH KCL 20 MEQ/L 1,000 ML IV SCH ×4 (02:08→16:53)
[2021-10-12] MEDS: SIMETHICONE 40 MG/0.6 ML DROPS 2,000 MG/30 ML BOTTLE PO SCH ×3 (05:18→16:53)
[2021-10-12] MEDS: ONDANSETRON 4 MG/2 ML VIAL IVP SCH ×3 (05:18→16:52)
[2021-10-12] MEDS: ACETAMINOPHEN IV (For NPO) 1,000 MG in EMPTY BAG 1 BAG IVPB SCH ×3 (05:18→16:51)
[2021-10-12 07:48] VITALS: RESP 18
[2021-10-12] MEDS: ALBUTEROL NEBULIZED 2.5 MG/3 ML INHALATION SCH ×4 (07:56→22:06)
[2021-10-12] MEDS: PANTOPRAZOLE 40 MG/10 ML VIAL IV SCH (08:41)
[2021-10-12] MEDS: HEPARIN SODIUM,PORCINE/PF 5,000 UNIT/0.5 ML SYRINGE SQ SCH (08:43)
[2021-10-12] MEDS ORDERED: atenoloL 50 MG TAB PO SCH (09:00)
[2021-10-12 09:59] LABS: African American GFR (CKD) 116.6 (60.0-200.0); Blood Urea Nitrogen 6.9 mg/dL (9.0-27.0); Calcium 8.1 mg/dL (8.7-10.3); Carbon Dioxide 17.2 mmol/L (20.0-27.5); Non-African American GFR(CKD) 100.6 (60.0-200.0); Potassium 4.2 mmol/L (3.5-5.5)
[2021-10-12 10:11] LABS: Magnesium 2.2 mg/dL (1.5-2.4)
[2021-10-12] MEDS ORDERED: SODIUM CHLORIDE 0.9% 1,000 ML IV ONE ×2 (10:21→14:50)
[2021-10-12 11:20] LABS: Basophils # (A) 0.01 X 10*3/uL (0.00-0.10); Basophils % (A) 0.1 %; Eosinophils # (A) 0 X 10*3/uL (0.04-0.35); Eosinophils % (A) 0 %; HCT 42.3 % (37.2-46.3); HGB 13.5 g/dL (12.0-15.0); Immature Grans, Automated 0.7 %; Lymphocytes # (A) 0.39 X 10*3/uL (0.90-5.00); Lymphocytes % (A) 2.9 %; MCH 29.2 pg (27.0-32.0); MCHC 31.9 g/dL (32.0-37.0); MCV 91.6 fL (80.0-97.0); Mean Platelet Volume 14.3 fL (9.5-12.2); Monocytes # (A) 0.35 X 10*3/uL (0.20-1.00); Monocytes % (A) 2.6 %; NRBC Per 100 WBC 0 /100 WBCS (0.0-0.0); Neutrophils # (A) 12.79 X 10*3/uL (1.80-7.70); Neutrophils % (A) 93.7 %; Platelet Count 145 X 10*3/uL (140-440); RBC 4.62 X 10*6/uL (4.10-5.20); RDW 14.2 % (11.5-14.5); WBC 13.63 X 10*3/uL (4.50-10.00)
[2021-10-12 12:21] VITALS: BMI 43.8
--- NOTE | 2021-10-12 16:52 | P.PN ---
Subjective Progress Note Date: 10/12/21 CHIEF COMPLAINT: Morbid obesity HISTORY OF PRESENT ILLNESS: The patient is a 46-year-old female status post gastric bypass. No reports of nausea or vomiting. Her pain is well controlled. She is tolerating liquids. ROS: No reports of nausea and vomiting. No bowel movements. No fevers or chills. No new chest pain. No productive sputum PHYSICAL EXAM: VITAL SIGNS: Reviewed CONSTITUTIONAL: Well developed and in no acute distress. EYES: Conjuctivae without sclera icterus. Extraocular movements grossly intact. HEAD, EARS, NOSE, THROAT: Moist buccal mucosa. Head is atraumatic, normocephalic. Hears conversational speech. No nasal drainage. RESPIRATORY: Non-labored respirations and equal bilateral excursions. CARDIOVASCULAR: Palpable 2+ radial pulses. ABDOMEN: Incisions intact. MUSCULOSKELETAL: No gross deformity of the lower extremities noted. No clubbing. No cyanosis. SKIN: Good skin turgor. Well perfused. NEUROLOGIC: Cranial nerves II through XII grossly intact. No focal or lateralizing signs. PSYCH: Appropriate affect. Alert and oriented to person, place and time. CLINICAL LABS: Reviewed. Hgb stable STUDIES: Limited upper GI independent review demonstrated no leaks or obstruction. This is my independent interpretation. ASSESSMENT: 1. Morbid obesity PLAN: 1. She is doing well. Anticipated discharge today. 2. Adjustment of medications with diuretics 3. Follow up in bariatric center in 3 days. Objective - Vital Signs Vital signs: Vital Signs Temp 98.8 F 10/12/21 07:47 Pulse 79 10/12/21 07:47 Resp 18 10/12/21 07:47 BP 129/58 10/12/21 07:47 Pulse Ox 95 10/12/21 07:47 Intake & Output 10/11/21 10/12/21 10/12/21 18:59 06:59 18:59 Intake Total 1750 1850 Output Total 10 500 Balance 1740 1350 Weight 114 kg 114 kg Intake: IV 1750 600 Intake, IV Titration 1250 Amount 0.9% NaCl with KCl 20 Meq 1200 /l 1,000 ml @ 150 mls/hr IV .[id number] [facility] Rx#: [id number] ceFAZolin 2 gm In Sodium 50 Chloride 0.9% 50 ml @ 100 mls/hr IVPB ONCE PRN Rx# :[id number] Output: Urine 500 Estimated Blood Loss 10 Other: # Voids 2 - Labs CBC & Chem 7: 10/12/21 04:43 10/12/21 04:43 Labs: Abnormal Lab Results - Last 24 Hours (Table) 10/11/21 Range/Units 14:10 Total Bilirubin 1.6 H (0.2-1.3) mg/dL
[2021-10-12 18:10] VITALS: BP 145/78; PULSE 65; TEMP 98.7
--- NOTE | 2021-10-12 18:36 | FL ---
SINGLE CONTRAST UPPER GI EXAMINATION: CLINICAL HISTORY: 46-year-old female postop bariatric surgery TECHNIQUE: Single contrast exam performed with 40 mL Isovue-370 contrast. Total fluoroscopy time: 2 minutes 26 seconds. Total images: 39. FINDINGS: The patient swallowed oral contrast without difficulty or delay. Esophageal peristalsis and motility are within normal limits. Oral contrast passes promptly across the GE junction collecting within th e occipital stomach. There is mild delay in complete passage across the gastrojejunostomy resulting i n contrast backing up and intermittent episodes of gastroesophageal reflux. There is no evidence of c ontrast extravasation to suggest leak. Trace post surgical free air below the right hemidiaphragm. IMPRESSION: No evidence of leak status post Johana-en-Y gastric bypass. A slight delay/obstruction at the gastrojej unostomy likely relates to postoperative edema. Trace postsurgical free air below the right hemidiaph ragm.
[2021-10-13] MEDS ORDERED: bisacodyL 5 MG TABLET.DR PO PRN (08:00)
--- NOTE | 2021-10-13 10:29 | P.DS ---
Providers Date of admission: 10/11/21 13:47 Expected date of discharge: 10/12/21 Attending physician: Florence Root Primary care physician: Azul Cha [facility] Course: POSTOPERATIVE DIAGNOSES: 1. Morbid obesity due to excess calories 2. Body mass index of 52.3, initial 3. Hypertensive heart disease 4. Osteoarthritis lower back 5. Osteoarthritis bilateral knees 6. Post operative nausea and vomiting 7. Osteoarthritis right hip 8. Pelvic peritoneal adhesions 9. Left upper quadrant peritoneal adhesions COURSE: Madina Murphy is a 45-year-old female who comes with morbid obesity for many years. She is looking into the gastric bypass. She underwent medical supervised weight loss including bariatric educational courses. She had a gastric bypass. Upper GI was negative for leaks obstruction. Prior to discha rge, she was tolerating diet. DVT prophylaxis including dietary restrictions reviewed in detail. Follow-up in the bariatric center in 2-3 days reviewed. Procedures: OPERATION: 1. Robotic assisted da Suresh Xi laparoscopic Nati-en-Y gastric bypass, 125 cm antecolic antegastric Nati limb, with 21 mm EEA. 2. Intraoperative esophagogastrojejunoscopy. ANESTHESIA: GETA and local ESTIMATED BLOOD LOSS: 10 mL SPECIMENS REMOVED: None. COMPLICATIONS: NONE. Operative Findings: 1. Biliopancreatic limb 60 cm 2. Bypass performed using 125 cm nati limb secondary to avoid increased tension at 150 cm. 3. Jejunojejunostomy and Mensah's defects closed using 2-0 V-LOC, green 4. Leak test negative with gastrojejunal anastomosis patent and hemostatic. 5. Reinforcement sutures were placed along the gastrojejunal anastomosis at 9:00 and 3:00 and 12:00. Patient Condition at Discharge: Stable Plan - Discharge Summary Discharge Rx Participant: Yes New Discharge Prescriptions: New Simethicone 40 mg/0.6 ml Drops [Mylicon Drops] 40 mg PO PCHS PRN #30 ml PRN Reason: Gas Omeprazole [PriLOSEC] 40 mg PO DAILY #30 cap Acetaminophen Tab [Tylenol Tab] 1,000 mg PO Q6HR PRN #30 tablet PRN Reason: Pain bisacodyL [Dulcolax] 5 mg PO DAILY PRN #10 tab PRN Reason: Constipation Ondansetron Odt [Zofran Odt] 4 mg PO Q8HR PRN #9 tab PRN Reason: Nausea Continue atenoloL [Tenormin] 50 mg PO DAILY Discontinued Spironolactone [Aldactone] 50 mg PO DAILY Ergocalciferol [Vitamin D2 (1250 Mcg = 51056 Iu)] 1,250 mcg PO HERNANDEZ Discharge Medication List atenoloL [Tenormin] 50 mg PO DAILY 10/07/21 [History] Acetaminophen Tab [Tylenol Tab] 1,000 mg PO Q6HR PRN #30 tablet 10/12/21 [Rx] Omeprazole [PriLOSEC] 40 mg PO DAILY #30 cap 10/12/21 [Rx] Ondansetron Odt [Zofran Odt] 4 mg PO Q8HR PRN #9 tab 10/12/21 [Rx] Simethicone 40 mg/0.6 ml Drops [Mylicon Drops] 40 mg PO PCHS PRN #30 ml 10/12/21 [Rx] bisacodyL [Dulcolax] 5 mg PO DAILY PRN #10 tab 10/12/21 [Rx] Follow up Appointment(s[place]Ref[place] - 10/15/21 9:00 am Patient Instructions/Handouts: *Surgery [facility] - Managing Your Pain After Surgery Without Opioids, Nutrition after Bariatric Surgery (GEN), Nati-en-Y Gastric Bypass (DC), Deep Vein Thrombosis Prevention (DC) Activity/Diet/Wound Care/Special Instructions: Liquid diet only for 2 weeks until October 25 No lifting over 4 pounds in 4 weeks, November 11September Shower. No soaking in bath tubs, until October 25 Please notify your surgeon if you develop nausea and vomiting including new onset of abdominal pain. Continue to use incentive spirometry to prevent pneumonias. Please continue to ambulate at home to prevent blood clots in legs. Follow-up at the bariatric center. May shower. Dressings to be discontinued by surgeon in the office. Drink 64 oz of fluid daily. Start protein shakes on . Notify bariatric center for temp over 101.0, increased pain, drainage from incisions. No straws or carbonated beverages. Liquid diet only. Sugar content should be less than 6 g to avoid dumping syndrome. Take MOM for constipation. CRUSH, OPEN, OR CUT TABLETS LARGER THAN A SIZE OF A TIC TAC Discharge Disposition: HOME SELF-CARE
== END 2021-10-12 21:20 | disposition home or self-care (01) | DRG 621 ==
LOC: 2ORMAIN 13:47 → 4SSUR 18:47
PROVIDERS: ADMIT Surgery Plastic and Reconstructive Surgery; ATTEND Surgery Plastic and Reconstructive Surgery
PROC: 0D164ZA Bypass Stomach to Jejunum, Percutaneous Endoscopic Approach (ICD-10-PCS; principal; 2021-10-11 14:55)
PROC: 0DJ08ZZ Inspection of Upper Intestinal Tract, Via Natural or Artificial Opening Endoscopic (ICD-10-PCS; principal; 2021-10-11 14:55)
PROC: 8E0W4CZ Robotic Assisted Procedure of Trunk Region, Percutaneous Endoscopic Approach (ICD-10-PCS; principal; 2021-10-11 14:55)
DX: E66.01 Morbid (severe) obesity due to excess calories (principal); I11.9 Hypertensive heart disease without heart failure; K76.0 Fatty (change of) liver, not elsewhere classified; G89.29 Other chronic pain; Z68.41 Body mass index [BMI] 40.0-44.9, adult; M17.0 Bilateral primary osteoarthritis of knee; M16.11 Unilateral primary osteoarthritis, right hip; N73.6 Female pelvic peritoneal adhesions (postinfective); M25.512 Pain in left shoulder; M54.50 Low back pain, unspecified; Z79.899 Other long term (current) drug therapy; Z90.49 Acquired absence of other specified parts of digestive tract; Z87.19 Personal history of other diseases of the digestive system; Z98.890 Other specified postprocedural states; Z71.3 Dietary counseling and surveillance; Z83.49 Family history of other endocrine, nutritional and metabolic diseases; Z80.0 Family history of malignant neoplasm of digestive organs; Z82.49 Family history of ischemic heart disease and other diseases of the circulatory system
CPT/HCPCS: 74240; 80051; 80053; 81025; 82310; 82565; 83735; 84100; 84520; 85025; 86850; 86900; 86901

== ENCOUNTER → 2021-11-04 | Outpatient (CLI) | payer BC, OTHER ==
[2021-11-04 12:47] LABS: Prothrombin Time 10.9 sec (9.0-12.0)
[2021-11-04 19:21] LABS: % Iron Saturation 17.46 (12.00-45.00); ALT 16 U/L (8-44); AST 13 U/L (13-35); African American GFR (CKD) 132.5 (60.0-200.0); Albumin 3.5 g/dL (3.8-4.9); Albumin/Globulin Ratio 1.24 (1.60-3.17); Alkaline Phosphatase 72 U/L (41-126); BUN/Creat Ratio 11.51 Ratio (12.00-20.00); Blood Urea Nitrogen 6.2 mg/dL (9.0-27.0); Carbon Dioxide 28.5 mmol/L (20.0-27.5); Chloride 95 mmol/L (96-109); Ferritin 72.7 ng/mL (10.0-291.0); Globulin 2.8 g/dL (1.6-3.3); Glucose 88 mg/dL (70-110); Iron 46 ug/dL (50-170); Magnesium 1.8 mg/dL (1.5-2.4); Non-African American GFR(CKD) 114.3 (60.0-200.0); Potassium 3.5 mmol/L (3.5-5.5); Sodium 137 mmol/L (135-145); Total Iron Binding Capacity 265 ug/dL (228-460); Total Protein 6.3 g/dL (6.2-8.2)
[2021-11-04 19:26] LABS: LDL Cholesterol,Calculated 89.4 mg/dL (0.0-131.0); Prealbumin 11.9 mg/dL (18.0-42.0)
[2021-11-04 19:49] LABS: HGB 13.1 g/dL (12.0-15.0); MCH 29.4 pg (27.0-32.0); MCV 91.9 fL (80.0-97.0); Mean Platelet Volume 13.1 fL (9.5-12.2); NRBC Per 100 WBC 0 /100 WBCS (0.0-0.0); Platelet Count 213 X 10*3/uL (140-440); RBC 4.46 X 10*6/uL (4.10-5.20); RDW 14.6 % (11.5-14.5); WBC 5.99 X 10*3/uL (4.50-10.00)
[2021-11-05 13:27] LABS: Zinc, Serum 69 ug/dL (60-130)
== END | disposition home or self-care (01) ==
LOC: LABWHC1 10:53
PROVIDERS: ATTEND Surgery Plastic and Reconstructive Surgery
DX: E66.01 Morbid (severe) obesity due to excess calories (principal); E89.1 Postprocedural hypoinsulinemia; D50.8 Other iron deficiency anemias; K91.2 Postsurgical malabsorption, not elsewhere classified; E44.0 Moderate protein-calorie malnutrition; E44.1 Mild protein-calorie malnutrition; E45 Retarded development following protein-calorie malnutrition; E46 Unspecified protein-calorie malnutrition; E55.9 Vitamin D deficiency, unspecified; K74.1 Hepatic sclerosis; N19 Unspecified kidney failure; T56.894A Toxic effect of other metals, undetermined, initial encounter; K50.90 Crohn's disease, unspecified, without complications
CPT/HCPCS: 36415; 80053; 80061; 82306; 82525; 82607; 82728; 82746; 83036; 83540; 83550; 83735; 83970; 84100; 84134; 84255; 84425; 84443; 84590; 84630; 85027; 85610; 85730

== ENCOUNTER → 2021-11-09 | Outpatient (CLI) | payer BC, OTHER ==
[~2021-11-09] MED LIST changes: -ACETAMINOPHEN TAB 500 MG TAB PO PRN; -CHLORHEXIDINE GLUCONATE 15 ML CUP MUCOUS MEM PRN; -GABAPENTIN 300 MG CAP PO PRN; -HEPARIN SODIUM,PORCINE/PF 5,000 UNIT/0.5 ML SYRINGE SQ PRN; -PANTOPRAZOLE 40 MG/10 ML VIAL IVP PRN; -SCOPOLAMINE 1 MG/72 HR PATCH TRANSDERM SCH; +SODIUM CHLORIDE 0.9% 1,000 ML IV SCH; +SODIUM CHLORIDE 0.9% 500 ML 500 ML in EMPTY BAG 1 BAG IV PRN
[2021-11-09] MEDS: SODIUM CHLORIDE 0.9% 500 ML 500 ML IV SCH ×5 (09:50→11:32)
[2021-11-09 10:02] VITALS: BP 167/102; PULSE 99; RESP 16; TEMP 98.3
== END ==
LOC: PROCWHC3 09:32
PROVIDERS: ATTEND Surgery Plastic and Reconstructive Surgery
DX: E86.0 Dehydration (principal)
CPT/HCPCS: 96360; 96361

== ENCOUNTER 2021-11-15 11:26 | Day surgery (SDC) | payer BC, OTHER ==
[2021-11-12 10:05] VITALS: BMI 41.8
--- NOTE | 2021-11-15 07:29 | P.GSHP ---
History of Present Illness H&P Date: 11/15/21 CHIEF COMPLAINT: GERD HISTORY OF PRESENT ILLNESS: The patient is a 46-year-old female who presents reports gastroesophageal reflux disease. Upper endoscopy was offered for further evaluation and management. PAST MEDICAL HISTORY: Please see list. PAST SURGICAL HISTORY: Please see list. MEDICATIONS: Please see list. ALLERGIES: Please see list. SOCIAL HISTORY: No illicit drug use FAMILY HISTORY: No reports of Crohn disease or ulcerative colitis. REVIEW OF ORGAN SYSTEMS: CONSTITUTIONAL: No reports of fevers or chills. GI: Denies any blood in stools or constipation. PHYSICAL EXAM: VITAL SIGNS: Stable GENERAL: Well-developed and pleasant in no acute distress. HEENT: No scleral icterus. Extraocular movements grossly intact. Moist buccal mucosa. NECK: Supple without lymphadenopathy. CHEST: Unlabored respirations. Equal bilateral excursions. CARDIOVASCULAR: Regular rate and rhythm. Distal 2+ pulses. ABDOMEN: Soft, nondistended. MUSCULOSKELETAL: No clubbing, cyanosis, or edema. ASSESSMENT: 1. Gastroesophageal reflux disease PLAN: 1. Recommend proceeding with an upper endoscopy Past Medical History Past Medical History: Hypertension, Osteoarthritis (OA) Additional Past Medical History / Comment(s): arthritis bilateral knees, lowback pain, hx. of low potassium w/HCTZ History of Any Multi-Drug Resistant Organisms: None Reported Past Surgical History: Bariatric Surgery, Section, Cholecystectomy, Joint Replacement, Orthopedic Surgery, Tubal Ligation Additional Past Surgical History / Comment(s): left shoulder X2, bilateral arthoscopic knee , left shoulder replacement ,gastric bypass 10-11-21 Past Anesthesia/Blood Transfusion Reactions: Motion Sickness, Postoperative Nausea & Vomiting (PONV) Additional Past Anesthesia/Blood Transfusion Reaction / Comment(s): slow to wake up Smoking Status: Never smoker - Past Family History Father Family Medical History: Hyperlipidemia, Hypertension Additional Family Medical History / Comment(s): pacemaker for arrhythmia Mother Family Medical History: No Reported History Medications and Allergies Home Medications Medication Instructions Recorded Confirmed Type atenoloL [Tenormin] 25 mg PO DAILY PRN 11/09/21 11/12/21 History Calcium(Dose Unknown) 1 tab PO DAILY 11/12/21 11/12/21 History Allergies Allergy/AdvReac Type Severity Reaction Status Date / Time No Known Allergies Allergy Verified 11/12/21 09:57
[~2021-11-15 11:26] MED LIST changes: +LACTATED RINGERS 1,000 ML IV SCH; -SODIUM CHLORIDE 0.9% 1,000 ML IV SCH; -SODIUM CHLORIDE 0.9% 500 ML 500 ML in EMPTY BAG 1 BAG IV PRN
[2021-11-15] MEDS ORDERED: ONDANSETRON 4 MG/2 ML VIAL ONE (12:04)
[2021-11-15 12:08] VITALS: RESP 16; TEMP 98.6
[2021-11-15] MEDS ORDERED: ONDANSETRON 4 MG/2 ML VIAL IVP ONE (12:09)
[2021-11-15] MEDS ORDERED: PROPOFOL 10 MG/ML 20 ML VIAL IV ONE (12:16)
[2021-11-15] MEDS ORDERED: LIDOCAINE 2% INJ 20 MG/ML (2 ML VIAL) ONE (12:16)
[2021-11-15 12:38] VITALS: BP 118/80; PULSE 79
--- NOTE | 2021-11-15 12:38 | P.PCN ---
Date of Procedure: 11/15/21 Description of Procedure: PREOPERATIVE DIAGNOSIS: Dysphagia. s/p Johana-en-y gastric bypass. Nausea with vomiting. Morbid obesity. POSTOPERATIVE DIAGNOSIS: Dysphagia. s/p Johana-en-y gastric bypass. Nausea with vomiting. Morbid obesity. Gastrojejunal stricture with chronic ulcer without perforation OPERATION: Esophagogastrojejunoscopy with balloon dilatation from 2 to 9 mm using pyloric balloon SURGEON: Florence Root MD ANESTHESIA: MAC. INDICATIONS: The patient is a 46-year-old female who presents with a history of dysphagia, gastric bypass including new-onset nausea and vomiting. Benefits and risks of the procedure were described. Informed consent was obtained. DESCRIPTION: The patient was brought into the endoscopy suite and laid in the left lateral decubitus position. After a timeout was confirmed, the procedure was initiated. An Olympus gastroscope was passed along the posterior oropharynx down to the distal esophagus where the squamocolumnar junction was unremarkable. The gastric pouch was entered. A gastrojejunal stricture of 2 mm was found as the adult gastroscope was 9.5 mm in size. A [employer] balloon dilator was placed through the scope. Final insufflation up to 9 mm was performed with a total of 2 minutes. The scope was advanced up to 60 cm from the incisors into the Johana limb. The mucosa of the gastrojejunal anastomosis was intact. However chronic gastrojejunal marginal ulcer was encountered. No full-thickness injury was encountered. The GI tract was desufflated. The patient tolerated the procedure well. FINDINGS: Stricture of approximately 2 mm encountered. Chronic gastrojejunal ulceration encountered. Successful balloon dilatation to 9 mm, limited due to risks of perforation with active ulcer RECOMMENDATIONS: Start combined therapy of Carafate and omeprazole of at least 4 weeks. Recommend at least 2 treatments for dilations due to severe stricture Compliance to omeprazole and Carafate Plan - Discharge Summary New Discharge Prescriptions: New Omeprazole [PriLOSEC] 40 mg PO DAILY #90 cap Sucralfate [Carafate] 1 gm PO BID #60 tablet Continue atenoloL [Tenormin] 25 mg PO DAILY PRN PRN Reason: high blood pressure Discontinued Calcium(Dose Unknown) 1 tab PO DAILY Discharge Medication List atenoloL [Tenormin] 25 mg PO DAILY PRN 11/09/21 [History] Omeprazole [PriLOSEC] 40 mg PO DAILY #90 cap 11/15/21 [Rx] Sucralfate [Carafate] 1 gm PO BID #60 tablet 11/15/21 [Rx] Follow up Appointment(s)/Referral(s): [facility],[place] [NON-STAFF] - 11/17/21 Patient Instructions/Handouts: Esophageal Dilation (DC), Complete Blenderized Diet (DC) Activity/Diet/Wound Care/Special Instructions: Please open capsule or crush/cut tablets for new medication Discharge Disposition: HOME SELF-CARE
== END 2021-11-15 13:40 | disposition home or self-care (01) ==
LOC: ORWHC2ENDO 11:26
PROVIDERS: ATTEND Surgery Plastic and Reconstructive Surgery
DX: K95.89 Other complications of other bariatric procedure (principal); R13.10 Dysphagia, unspecified; I10 Essential (primary) hypertension; M17.0 Bilateral primary osteoarthritis of knee; Z90.49 Acquired absence of other specified parts of digestive tract; Z96.612 Presence of left artificial shoulder joint; Z98.51 Tubal ligation status; Z98.890 Other specified postprocedural states; Z82.49 Family history of ischemic heart disease and other diseases of the circulatory system; E66.01 Morbid (severe) obesity due to excess calories; Z68.41 Body mass index [BMI] 40.0-44.9, adult
CPT/HCPCS: 81025; 43245; J2405; J2704; J2001; C1726

== ENCOUNTER 2021-12-13 06:51 | Day surgery (SDC) | payer BC, OTHER ==
[2021-12-09 14:02] VITALS: BMI 40.7
[~2021-12-13 06:51] MED LIST changes: +LIDOCAINE 1% (10MG/ML) FOR IV START INTRADERMA PRN
[2021-12-13 07:26] VITALS: RESP 16; TEMP 98.3
--- NOTE | 2021-12-13 07:34 | P.GSHP ---
History of Present Illness H&P Date: 12/13/21 CHIEF COMPLAINT: GERD HISTORY OF PRESENT ILLNESS: The patient is a 46-year-old female who presents reports gastroesophageal reflux disease. Upper endoscopy was offered for further evaluation and management. PAST MEDICAL HISTORY: Please see list. PAST SURGICAL HISTORY: Please see list. MEDICATIONS: Please see list. ALLERGIES: Please see list. SOCIAL HISTORY: No illicit drug use FAMILY HISTORY: No reports of Crohn disease or ulcerative colitis. REVIEW OF ORGAN SYSTEMS: CONSTITUTIONAL: No reports of fevers or chills. GI: Denies any blood in stools or constipation. PHYSICAL EXAM: VITAL SIGNS: Stable GENERAL: Well-developed and pleasant in no acute distress. HEENT: No scleral icterus. Extraocular movements grossly intact. Moist buccal mucosa. NECK: Supple without lymphadenopathy. CHEST: Unlabored respirations. Equal bilateral excursions. CARDIOVASCULAR: Regular rate and rhythm. Distal 2+ pulses. ABDOMEN: Soft, nondistended. MUSCULOSKELETAL: No clubbing, cyanosis, or edema. ASSESSMENT: 1. Gastroesophageal reflux disease PLAN: 1. Recommend proceeding with an upper endoscopy Past Medical History Past Medical History: Hypertension, Osteoarthritis (OA) Additional Past Medical History / Comment(s): difficulty swallowing solid food but improved from EGD w/ dilatation on 11/15/21,chronic left shoulder pain, arthritis bilateral knees, lowback pain, hx. of low potassium w/HCTZ History of Any Multi-Drug Resistant Organisms: None Reported Past Surgical History: Bariatric Surgery, Section, Cholecystectomy, Orthopedic Surgery, Tubal Ligation Additional Past Surgical History / Comment(s): EGD w/ dilatation on 11/15/21,left shoulder X2, bilateral arthoscopic knee. surgery,gastric bypass 10-11-21 Past Anesthesia/Blood Transfusion Reactions: Motion Sickness, Postoperative Nausea & Vomiting (PONV) Additional Past Anesthesia/Blood Transfusion Reaction / Comment(s): slow to wake up Smoking Status: Never smoker - Past Family History Father Family Medical History: Hyperlipidemia, Hypertension Additional Family Medical History / Comment(s): pacemaker for arrhythmia Mother Family Medical History: No Reported History Medications and Allergies Home Medications Medication Instructions Recorded Confirmed Type atenoloL 25 mg PO QAM 11/22/21 12/13/21 History Potassium Chloride [K-Tab ER] 20 meq PO DAILY 11/25/21 12/13/21 History Omeprazole [PriLOSEC] 40 mg PO QAM 12/09/21 12/13/21 History Allergies Allergy/AdvReac Type Severity Reaction Status Date / Time No Known Allergies Allergy Verified 12/13/21 07:29 Surgical - Exam Vital Signs Temp Pulse Resp BP Pulse Ox 98.3 F 64 16 127/69 97 12/13/21 07:24 12/13/21 07:24 12/13/21 07:24 12/13/21 07:24 12/13/21 07:24
[2021-12-13] MEDS ORDERED: PROPOFOL 10 MG/ML 20 ML VIAL IV ONE (07:35)
[2021-12-13] MEDS ORDERED: LIDOCAINE 2% INJ 20 MG/ML (2 ML VIAL) ONE (07:35)
--- NOTE | 2021-12-13 07:55 | P.PCN ---
Date of Procedure: 12/13/21 Description of Procedure: PREOPERATIVE DIAGNOSIS: Dysphagia. Gastrojejunal stricture POSTOPERATIVE DIAGNOSIS: Dysphagia. Gastrojejunal stricture with chronic ulcer without perforation OPERATION: Esophagogastrojejunoscopy with balloon dilatation from 8 to 13.5 mm. SURGEON: Florence Root MD ANESTHESIA: MAC. INDICATIONS: The patient is a 46-year-old female who presents with a history of dysphagia, gastric bypass including new-onset nausea and vomiting. Benefits and risks of the procedure were described. Informed consent was obtained. DESCRIPTION: The patient was brought into the endoscopy suite and laid in the left lateral decubitus position. After a timeout was confirmed, the procedure was initiated. An Olympus gastroscope was passed along the posterior oropharynx down to the distal esophagus where the squamocolumnar junction was unremarkable. The gastric pouch was entered. A gastrojejunal stricture of 8 mm was found as the adult gastroscope was 9.5 mm in size. A [employer] balloon dilator was placed through the scope. Final insufflation up to 20 mm was performed with a total of 2 minutes. The scope was advanced up to 60 cm from the incisors into the Johana limb. The mucosa of the gastrojejunal anastomosis was intact. However moderate 3 x 3-mm chronic gastrojejunal marginal ulcers were encountered. No full-thickness injury was encountered. The GI tract was desufflated. The patient tolerated the procedure well. FINDINGS: Stricture of approximately 8 mm encountered. Chronic gastrojejunal ulceration moderate 3 x 3-mm encountered. Balloon dilatation to 13.5 mm. RECOMMENDATIONS: Increase omeprazole from 40 mg daily to 40 mg twice a day for 2-3 weeks until next dilation Plan - Discharge Summary Discharge Rx Participant: No New Discharge Prescriptions: New Omeprazole [PriLOSEC] 40 mg PO BID #60 cap Continue atenoloL 25 mg PO QAM Potassium Chloride [K-Tab ER] 20 meq PO DAILY Discontinued Omeprazole [PriLOSEC] 40 mg PO QAM Discharge Medication List atenoloL 25 mg PO QAM 11/22/21 [History] Potassium Chloride [K-Tab ER] 20 meq PO DAILY 11/25/21 [History] Omeprazole [PriLOSEC] 40 mg PO BID #60 cap 12/13/21 [Rx] Follow up Appointment(s)/Ref[place](s[place] - 12/22/21 Patient Instructions/Handouts: Peptic Ulcer (GEN) Activity/Diet/Wound Care/Special Instructions: Increase omeprazole to 40 mg twice a day until next dilation Discharge Disposition: HOME SELF-CARE
[2021-12-13 08:23] VITALS: BP 111/77; PULSE 56
== END 2021-12-13 08:38 | disposition home or self-care (01) ==
LOC: ORWHC2ENDO 06:51
PROVIDERS: ATTEND Surgery Plastic and Reconstructive Surgery
DX: K21.9 Gastro-esophageal reflux disease without esophagitis (principal); K95.89 Other complications of other bariatric procedure; R13.10 Dysphagia, unspecified; I10 Essential (primary) hypertension; M17.0 Bilateral primary osteoarthritis of knee; M54.50 Low back pain, unspecified; Z98.891 History of uterine scar from previous surgery; Z90.49 Acquired absence of other specified parts of digestive tract; Z98.51 Tubal ligation status; Z98.890 Other specified postprocedural states; Z82.49 Family history of ischemic heart disease and other diseases of the circulatory system; Z83.438 Family history of other disorder of lipoprotein metabolism and other lipidemia; Z79.899 Other long term (current) drug therapy
CPT/HCPCS: 81025; 43245; J2704; J2001; C1726; 43249

== ENCOUNTER 2022-01-10 07:23 | Day surgery (SDC) | payer BC, OTHER ==
[2022-01-06 12:47] VITALS: BMI 38.2
[2022-01-10] MEDS ORDERED: LACTATED RINGERS 1,000 ML IV SCH (07:32)
--- NOTE | 2022-01-10 07:33 | P.GSHP ---
History of Present Illness H&P Date: 01/10/22 CHIEF COMPLAINT: GERD HISTORY OF PRESENT ILLNESS: The patient is a 46-year-old female who presents reports gastroesophageal reflux disease. Upper endoscopy was offered for further evaluation and management. PAST MEDICAL HISTORY: Please see list. PAST SURGICAL HISTORY: Please see list. MEDICATIONS: Please see list. ALLERGIES: Please see list. SOCIAL HISTORY: No illicit drug use FAMILY HISTORY: No reports of Crohn disease or ulcerative colitis. REVIEW OF ORGAN SYSTEMS: CONSTITUTIONAL: No reports of fevers or chills. GI: Denies any blood in stools or constipation. PHYSICAL EXAM: VITAL SIGNS: Stable GENERAL: Well-developed and pleasant in no acute distress. HEENT: No scleral icterus. Extraocular movements grossly intact. Moist buccal mucosa. NECK: Supple without lymphadenopathy. CHEST: Unlabored respirations. Equal bilateral excursions. CARDIOVASCULAR: Regular rate and rhythm. Distal 2+ pulses. ABDOMEN: Soft, nondistended. MUSCULOSKELETAL: No clubbing, cyanosis, or edema. ASSESSMENT: 1. Gastroesophageal reflux disease PLAN: 1. Recommend proceeding with an upper endoscopy Past Medical History Past Medical History: Hypertension, Osteoarthritis (OA) Additional Past Medical History / Comment(s): Chronic left shoulder pain, arthritis bilateral knees, low back pain, hx of low potassium w/HCTZ. History of Any Multi-Drug Resistant Organisms: None Reported Past Surgical History: Bariatric Surgery, Section, Cholecystectomy, Orthopedic Surgery, Tubal Ligation Additional Past Surgical History / Comment(s): Left shoulder X2, bilateral arthoscopic knee surgery, gastric bypass 10-11-21. Past Anesthesia/Blood Transfusion Reactions: Motion Sickness, Postoperative Nausea & Vomiting (PONV) Additional Past Anesthesia/Blood Transfusion Reaction / Comment(s): Slow to wake up. Past Psychological History: No Psychological Hx Reported Smoking Status: Never smoker Past Alcohol Use History: None Reported Past Drug Use History: None Reported - Past Family History Father Family Medical History: Hyperlipidemia, Hypertension Additional Family Medical History / Comment(s): pacemaker for arrhythmia Mother Family Medical History: No Reported History Medications and Allergies Home Medications Medication Instructions Recorded Confirmed Type atenoloL 25 mg PO QAM 11/22/21 01/06/22 History Potassium Chloride [K-Tab ER] 20 meq PO DAILY 11/25/21 01/06/22 History Omeprazole [PriLOSEC] 40 mg PO BID #60 cap 12/13/21 01/06/22 Rx Allergies Allergy/AdvReac Type Severity Reaction Status Date / Time No Known Allergies Allergy Verified 01/06/22 12:39
[2022-01-10 07:41] VITALS: RESP 16; TEMP 97.1
[2022-01-10] MEDS ORDERED: PROPOFOL 10 MG/ML 20 ML VIAL IV ONE (08:22)
[2022-01-10] MEDS ORDERED: LIDOCAINE 2% INJ 20 MG/ML (2 ML VIAL) ONE (08:22)
[2022-01-10 08:58] VITALS: BP 115/79; PULSE 58
--- NOTE | 2022-01-10 09:38 | P.PCN ---
Date of Procedure: 01/10/22 Description of Procedure: PREOPERATIVE DIAGNOSIS: Dysphagia. s/p Johana-en-y gastric bypass. Nausea with vomiting. Morbid obesity. POSTOPERATIVE DIAGNOSIS: Dysphagia. s/p Johana-en-y gastric bypass. Nausea with vomiting. Morbid obesity. Gastrojejunal stricture without chronic ulcer without perforation OPERATION: Esophagogastrojejunoscopy with balloon dilatation from 10 to 15 mm. SURGEON: Florence Root MD ANESTHESIA: MAC. INDICATIONS: The patient is a 46-year-old female who presents with a history of dysphagia, gastric bypass including nausea and vomiting. Benefits and risks of the procedure were described. Informed consent was obtained. DESCRIPTION: The patient was brought into the endoscopy suite and laid in the left lateral decubitus position. After a timeout was confirmed, the procedure was initiated. An Olympus gastroscope was passed along the posterior oropharynx down to the distal esophagus where the squamocolumnar junction was unremarkable. The gastric pouch was entered. A gastrojejunal stricture of 10 mm was found as the adult gastroscope was 9.5 mm in size. A [employer] balloon dilator was placed through the scope. Final insufflation up to 20 mm was performed with a total of 2 minutes. The scope was advanced up to 60 cm from the incisors into the Johana limb. The mucosa of the gastrojejunal anastomosis was intact. However chronic gastrojejunal marginal ulcer was encountered. No full-thickness injury was encountered. The GI tract was desufflated. The patient tolerated the procedure well. FINDINGS: Squamocolumnar junction unremarkable Stricture of approximately 10 mm encountered. Resolved chronic gastrojejunal ulceration encountered. Successful balloon dilatation to 15 mm. Gastric pouch 4 cm. RECOMMENDATIONS: Omeprazole 40 mg daily. Recommend warm beverages on auto dilate structures Plan - Discharge Summary Discharge Rx Participant: No New Discharge Prescriptions: New Omeprazole [PriLOSEC] 40 mg PO DAILY #90 cap Continue atenoloL 25 mg PO QAM Potassium Chloride [K-Tab ER] 20 meq PO DAILY Discontinued Omeprazole [PriLOSEC] 40 mg PO BID #60 cap Discharge Medication List atenoloL 25 mg PO QAM 11/22/21 [History] Potassium Chloride [K-Tab ER] 20 meq PO DAILY 11/25/21 [History] Omeprazole [PriLOSEC] 40 mg PO DAILY #90 cap 01/10/22 [Rx] Follow up Appointment(s)/Ref[place](s[place] [facility] - 02/09/22 Patient Instructions/Handouts: *[facility] - (Anesthesia) Endoscopy Discharge Instructions, Upper Endoscopy (DC), Esophageal Dilation (DC) Activity/Diet/Wound Care/Special Instructions: May decrease omeprazole to 40 mg daily. Recommend warm beverages prior to eating including having soups and broth. Discharge Disposition: HOME SELF-CARE
== END 2022-01-10 09:47 | disposition home or self-care (01) ==
LOC: ORWHC2ENDO 07:23
PROVIDERS: ATTEND Surgery Plastic and Reconstructive Surgery
DX: K28.7 Chronic gastrojejunal ulcer without hemorrhage or perforation (principal); K91.89 Other postprocedural complications and disorders of digestive system; E66.01 Morbid (severe) obesity due to excess calories; Z68.38 Body mass index [BMI] 38.0-38.9, adult; R11.2 Nausea with vomiting, unspecified; Z98.84 Bariatric surgery status; I10 Essential (primary) hypertension; K21.9 Gastro-esophageal reflux disease without esophagitis; M19.90 Unspecified osteoarthritis, unspecified site; Z90.49 Acquired absence of other specified parts of digestive tract; Z98.51 Tubal ligation status; Z79.899 Other long term (current) drug therapy
CPT/HCPCS: 81025; 43249; J2704; J2001; C1726

== ENCOUNTER 2022-01-23 13:38 | Observation (INO) | payer BC, OTHER ==
--- NOTE | 2022-01-23 14:04 | ED ---
General Adult HPI - General Chief complaint: Neuro Symptoms/Deficit Stated complaint: facial weakness Time Seen by Provider: 01/23/22 13:54 Source: patient, RN notes reviewed Mode of arrival: wheelchair Limitations: no limitations - History of Present Illness Initial comments: Patient is a pleasant 46-year-old female presenting to the emergency Department with concerns for right facial droop. Onset of symptoms was less than a half an hour prior to arrival, approximately 1:30 PM. Patient was on the computer that time. No history of similar symptoms previously. Patient did notice right facial droop. There is some concern for possible speech involvement however does not sound slurred or garbled. Patient denies confusion. Patient denies and surgery changes. Patient denies weakness of her extremities. No headache. Patient feels anxious at this time. - Related Data Home Medications Medication Instructions Recorded Confirmed atenoloL 25 mg PO QAM 11/22/21 01/12/22 Potassium Chloride [K-Tab ER] 20 meq PO DAILY 11/25/21 01/12/22 Previous Rx's Medication Instructions Recorded Omeprazole [PriLOSEC] 40 mg PO DAILY #90 cap 01/10/22 Lactulose [Cephulac] 20 gm PO BID #300 ml 01/12/22 Allergies Allergy/AdvReac Type Severity Reaction Status Date / Time No Known Allergies Allergy Verified 01/23/22 13:44 Review of Systems ROS Statement: Those systems with pertinent positive or pertinent negative responses have been documented in the HPI. ROS Other: All systems not noted in ROS Statement are negative. Constitutional: Denies: fever Eyes: Denies: eye pain ENT: Denies: ear pain Respiratory: Denies: cough Cardiovascular: Denies: chest pain Endocrine: Denies: fatigue Gastrointestinal: Denies: abdominal pain Genitourinary: Denies: dysuria Musculoskeletal: Denies: back pain Skin: Denies: rash Neurological: Reports: as per HPI. Denies: headache Past Medical History Past Medical History: Hypertension, Osteoarthritis (OA) Additional Past Medical History / Comment(s): Chronic left shoulder pain, arthritis bilateral knees, low back pain, hx of low potassium w/HCTZ. History of Any Multi-Drug Resistant Organisms: None Reported Past Surgical History: Bariatric Surgery, Section, Cholecystectomy, Orthopedic Surgery, Tubal Ligation Additional Past Surgical History / Comment(s): Left shoulder X2, bilateral arthoscopic knee surgery, gastric bypass 5-16-22. Past Anesthesia/Blood Transfusion Reactions: Motion Sickness, Postoperative Nausea & Vomiting (PONV) Additional Past Anesthesia/Blood Transfusion Reaction / Comment(s): Slow to wake up. Past Psychological History: No Psychological Hx Reported Smoking Status: Never smoker Past Alcohol Use History: None Reported Past Drug Use History: None Reported - Past Family History Father Family Medical History: Hyperlipidemia, Hypertension Additional Family Medical History / Comment(s): pacemaker for arrhythmia Mother Family Medical History: No Reported History General Exam Limitations: no limitations General appearance: alert, in no apparent distress Head exam: Present: normocephalic Eye exam: Present: normal appearance, PERRL, EOMI ENT exam: Present: normal oropharynx Neck exam: Present: normal inspection. Absent: tenderness Respiratory exam: Present: normal lung sounds bilaterally Cardiovascular Exam: Present: regular rate, normal rhythm GI/Abdominal exam: Present: soft. Absent: tenderness Extremities exam: Present: normal inspection Neurological exam: Present: alert, oriented X3, CN II-XII intact (Except for right facial weakness that does not involve the forehead.) Expanded Neurological exam: Present: protecting the airway Speech: Present: fluid speech Cranial nerves: EOM's Intact: Normal, Facial Sensation: Normal, Facial Palsy wit h Forehead Movement: Abnormal Right Sensory exam: Upper Extremity Light Touch: Normal, Lower Extremity Light Touch: Normal Motor strength exam: RUE: 5, LUE: 5, RLE: 5, LLE: 5 Eye Response: (4) open spontaneously Motor Response: (6) obeys commands Verbal Response: (5) oriented Psychiatric exam: Present: normal affect, normal mood Skin exam: Present: normal color Course Vital Signs 01/23/22 01/23/22 13:40 14:00 Temperature 98.1 F 97.8 F Pulse Rate 62 67 Respiratory 18 20 Rate Blood Pressure 144/101 116/77 O2 Sat by Pulse 99 98 Oximetry - Reevaluation(s) Reevaluation #1: 01/23/22 14:08 Case discussed with neurology, Dr. De Leon who agrees patient is not a TPA candidate secondary to low NIH. Risks are felt to outweigh the benefits. Medical Decision Making - Medical Decision Making Patient reevaluated and unchanged. Patient and family updated on results and plan. Dr. Iqbal has been paged for admission, covering Dr. Emanuel, who admits for Dr. Cha. - Lab Data Result diagrams: 01/23/22 14:05 01/23/22 14:05 Lab Results 01/23/22 01/23/22 01/23/22 Range/Units 14:05 14:05 14:05 WBC 7.2 (3.8-10.6) k/uL RBC 5.12 (3.80-5.40) m/uL Hgb 16.1 H (11.4-16.0) gm/dL Hct 48.4 H (34.0-46.0) % MCV 94.5 (80.0-100.0) fL MCH 31.4 (25.0-35.0) pg MCHC 33.2 (31.0-37.0) g/dL RDW 13.9 (11.5-15.5) % Plt Count 179 (150-450) k/uL MPV 10.2 Neutrophils % 59 % Lymphocytes % 30 % Monocytes % 6 % Eosinophils % 1 % Basophils % 2 % Neutrophils # 4.2 (1.3-7.7) k/uL Lymphocytes # 2.2 (1.0-4.8) k/uL Monocytes # 0.4 (0-1.0) k/uL Eosinophils # 0.1 (0-0.7) k/uL Basophils # 0.2 (0-0.2) k/uL PT 11.0 (9.0-12.0) sec INR 1.0 (<1.2) APTT 27.6 (22.0-30.0) sec Sodium 137 (137-145) mmol/L Potassium 3.3 L (3.5-5.1) mmol/L Chloride 93 L (98-107) mmol/L Carbon Dioxide 24 (22-30) mmol/L Anion Gap 20 mmol/L BUN 4 L (7-17) mg/dL Creatinine 0.65 (0.52-1.04) mg/dL Est GFR (CKD-EPI)AfAm >90 (>60 ml/min/1.73 sqM) Est GFR (CKD-EPI)NonAf >90 (>60 ml/min/1.73 sqM) Glucose 71 L (74-99) mg/dL Calcium 9.1 (8.4-10.2) mg/dL Total Bilirubin 1.7 H (0.2-1.3) mg/dL AST 19 (14-36) U/L ALT 10 (4-34) U/L Alkaline Phosphatase 93 (38-126) U/L Total Protein 7.4 (6.3-8.2) g/dL Albumin 4.3 (3.5-5.0) g/dL - Radiology Data Radiology results: report reviewed (Computed tomography scan of the brain shows no acute process), image reviewed (Chest x-ray shows no acute process) Disposition Clinical Impression: Cerebrovascular accident (CVA) Disposition: ADMITTED IP TO THIS HOSP Is patient prescribed a controlled substance at d/c from ED?: No Referrals: Azul Cha MD [Primary Care Provider] - 1-2 days Time of Disposition: 14:36
[2022-01-23 14:20] LABS: Basophils # (A) 0.2 k/uL (0-0.2); Basophils % (A) 2 %; Eosinophils # (A) 0.1 k/uL (0-0.7); Eosinophils % (A) 1 %; HCT 48.4 % (34.0-46.0); HGB 16.1 gm/dL (11.4-16.0); Lymphocytes # (A) 2.2 k/uL (1.0-4.8); Lymphocytes % (A) 30 %; MCH 31.4 pg (25.0-35.0); MCHC 33.2 g/dL (31.0-37.0); MCV 94.5 fL (80.0-100.0); Mean Platelet Volume 10.2; Monocytes # (A) 0.4 k/uL (0-1.0); Monocytes % (A) 6 %; Neutrophils # (A) 4.2 k/uL (1.3-7.7); Neutrophils % (A) 59 %; Platelet Count 179 k/uL (150-450); RBC 5.12 m/uL (3.80-5.40); RDW 13.9 % (11.5-15.5); WBC 7.2 k/uL (3.8-10.6)
--- NOTE | 2022-01-23 14:24 | CT ---
EXAMINATION TYPE: CT brain wo con for TPA DATE OF EXAM: 01/23/2022 COMPARISON: None HISTORY: Neuro deficits. CT DLP: 1119.6 mGycm Automated exposure control for dose reduction was used. Ventricles and sulci appear normal. There is no mass effect or midline shift. No sign of intracranial hemorrhage. The calvarium is intact. Skull base is intact. There is normal aeration of the mastoid s inuses. There is mucosal thickening and sclerosis at the right maxillary sinus consistent with chroni c sinusitis. IMPRESSION: Negative CT scan of the brain.
--- NOTE | 2022-01-23 14:26 | XR ---
EXAMINATION TYPE: XR chest 2V DATE OF EXAM: 01/23/2022 COMPARISON: 08/02/2021 HISTORY: Altered mental status TECHNIQUE: 2 views FINDINGS: Heart and mediastinum are normal. Lungs are clear. Diaphragm is normal. Bony thorax is inta ct. There is left shoulder prosthesis. IMPRESSION: Normal chest. No change.
[2022-01-23 14:28] LABS: ALT 10 U/L (4-34); AST 19 U/L (14-36); African American GFR (CKD) >90 (>60 ml/min/1.73 sqM); Albumin 4.3 g/dL (3.5-5.0); Alkaline Phosphatase 93 U/L (38-126); Anion Gap 20 mmol/L; Blood Urea Nitrogen 4 mg/dL (7-17); Calcium 9.1 mg/dL (8.4-10.2); Carbon Dioxide 24 mmol/L (22-30); Chloride 93 mmol/L (98-107); Glucose 71 mg/dL (74-99); Non-African American GFR(CKD) >90 (>60 ml/min/1.73 sqM); Partial Thromboplastin Time 27.6 sec (22.0-30.0); Potassium 3.3 mmol/L (3.5-5.1); Sodium 137 mmol/L (137-145); Total Bilirubin 1.7 mg/dL (0.2-1.3); Total Protein 7.4 g/dL (6.3-8.2)
[2022-01-23] MEDS ORDERED: POTASSIUM CHLORIDE ER 20 MEQ TAB.ER PO STA (14:36)
[2022-01-23] MEDS ORDERED: ASPIRIN 325 MG TAB PO STA (14:37)
--- NOTE | 2022-01-23 14:43 | CT ---
EXAMINATION TYPE: CT angio head neck DATE OF EXAM: 01/23/2022 COMPARISON: None HISTORY: Neuro deficits. CT DLP: 582 mGycm Automated exposure control for dose reduction was used. CONTRAST: Performed with IV Contrast, patient injected with 65ml mL of Isovue 370. Images obtained from the aortic arch to the vertex of the brain with the IV contrast. There are 3-D p ost processed images. There is normal branching pattern of the great vessels on the aortic arch. There is bilateral arteria l flow in the subclavian arteries. There is arterial flow in the common internal and external carotid arteries bilaterally. There is arterial flow in both vertebral arteries. There is wide patency of th e carotid artery bifurcations. No evidence of carotid or vertebral artery aneurysm or dissection. There is arterial flow in the vertebrobasilar artery system. There is arterial flow in the anterior m iddle and posterior cerebral arteries bilaterally. No mass effect. No evidence of intracranial aneury sm or neovascularity. No evidence of hemodynamic stenosis. There is normal enhancement of the venous sinuses. There is a large empty sella. There is C5-6 spondylotic changes with endplate spur formation and some mild spinal stenosis. IMPRESSION: Negative CT angiogram of the neck. Negative CT angiogram of the brain. Empty sella turcica.
[2022-01-23] MEDS ORDERED: Potassium Replacement Protocol 1 EACH MISC MISCELLANE PRN (15:09)
[2022-01-23] MEDS ORDERED: Magnesium Replacement Protocol 1 EACH MISC MISCELLANE PRN (15:09)
[2022-01-23] MEDS: SODIUM CHLORIDE 0.9% 1,000 ML IV SCH (15:55)
--- NOTE | 2022-01-23 17:51 | US ---
EXAMINATION TYPE: US carotid duplex BILAT DATE OF EXAM: 01/23/2022 COMPARISON: CTA CLINICAL HISTORY: stroke. TECHNIQUE: Carotid duplex ultrasound examination. Indirect Doppler criteria was utilized. FINDINGS: EXAM MEASUREMENTS: RIGHT: Peak Systolic Velocity (PSV) cm/sec ----- Right CCA: 78.4 ----- Right ICA: 91.4 ----- Right ECA: 79.8 ICA/CCA ratio: 1.2 RIGHT: End Diastole cm/sec ----- Right CCA: 23.1 ----- Right ICA: 24.1 ----- Right ECA: 8.4 LEFT: Peak Systolic Velocity (PSV) cm/sec ----- Left CCA: 75.4 ----- Left ICA: 74.3 ----- Left ECA: 62.5 ICA/CCA ratio: 1.0 LEFT: End Diastole cm/sec ----- Left CCA: 21.5 ----- Left ICA: 31.4 ----- Left ECA: 8.4 VERTEBRALS (direction of flow): Right Vertebral: Antegrade Left Vertebral: Antegrade Rhythm: Normal TARGETEER NOTES: Minimal atherosclerotic changes with no significant velocity increases seen bilate rally. IMPRESSION: There is antegrade flow in the vertebral arteries. The images and measurement suggests less than 20% stenosis in both internal carotid arteries Criteria for Assigning % of Stenosis / Diameter reduction (Estimation based on the indirect measurements of the internal carotid artery velocities (ICA PSV). 1. Normal (no stenosis)=ICA PSV < 125 cm/s: ratio < 2.0: ICA EDV<40 cm/s. 2. Less than 50% stenosis=ICA PSV < 125 cm/s: ratio < 2.0: ICA EDV<40 cm/s. 3. 50 to 69% stenosis=ICA PSV of 125 to 230 cm/s: ration 2.0 ? 4.0: ICA EDV 40-100 cm/s. 4. Greater than 70% stenosis to near occlusion= ICA PSV > 230 cm/s: ratio > 4.0: ICA EDV > 100 cm/s. 5. Near occlusion= ICA PSV velocities may be low or undetectable: variable ratio and ICA EDV. 6. Total occlusion=unable to detect flow.
[2022-01-23 20:45] LABS: Glucose,Whole Blood 68 mg/dL (70-110)
[2022-01-23 21:02] LABS: Glucose,Whole Blood 90 mg/dL (70-110)
--- NOTE | 2022-01-24 01:09 | HP ---
HISTORY AND PHYSICAL CHIEF COMPLAINT: Drooping of the right side of the face. HISTORY OF PRESENT ILLNESS: This 46-year-old woman with a past medical history of hypertension and bariatric surgery, being followed by Dr. Damaris Peters in the outpatient setting, was complaining of right facial palsy . Patient came to [place]. NIH scale is 2. CT scan and CT angio were negative and patient for possible stroke. Neurology evaluation is in progress. There is no history of any fever, rigors, or chills at this time. PAST MEDICAL HISTORY: Reviewed, include hypertension. HOME MEDICATIONS: Reviewed include , doses and rest of medications reviewed. ALLERGIES: Lactulose. FAMILY HISTORY: History of hypertension, hyperlipidemia. SOCIAL HISTORY: No history of smoking REVIEW OF SYSTEM: A 14-point review is negative as mentioned earlier. PHYSICAL EXAMINATION: VITAL SIGNS: Pulse is 63, blood pressure n, respirations 20. HEENT: Conjunctivae normal. Oral mucosa moist. NECK: No jugular venous distention. CARDIOVASCULAR: S1, S2 muffled. RESPIRATION: Breath sounds diminished in the bases. No rhonchi, no crackles. ABDOMEN: Soft, nontender NERVOUS SYSTEM: Right upper motor neuron type of facial palsy present, otherwise no other focal deficit. SKIN: No ulcer, rash, bleeding. JOINTS: No active deforming arthropathy. LABS: Reviewed. CT scan reviewed personally. Potassium ASSESSMENT: 1. Acute right facial palsy, possible acute stroke. 2. Hypertension. 3. Degenerative joint disease. 4. Hypokalemia. 5. Multiple medical issues. RECOMMENDATION: This 46-year-old woman who presented with multiple complex medical issues, we will monitor the patient closely antiplatelet and complete neurologic workup, neurovascular workup, neuro checks, Neurology consultation. Prognosis guarded. Resume the home medications confirmed and prognosis guarded. Further recommendations to follow. Discussed with the patient. MMODL / IJN: [id number] / BETH
[2022-01-24 06:00] LABS: Glucose,Whole Blood 64 mg/dL (70-110)
[2022-01-24 06:24] LABS: Glucose,Whole Blood 70 mg/dL (70-110)
[2022-01-24] MEDS ORDERED: PANTOPRAZOLE 40 MG TABLET PO SCH (07:30)
[2022-01-24 08:26] LABS: Magnesium 1.7 mg/dL (1.6-2.3)
[2022-01-24] MEDS ORDERED: POTASSIUM CHLORIDE ER 20 MEQ TAB.ER PO SCH (09:00)
[2022-01-24 09:34] VITALS: RESP 18; TEMP 97.9
[2022-01-24] MEDS: ASPIRIN 325 MG TAB PO SCH ×2 (09:37→09:39)
[2022-01-24] MEDS: SODIUM CHLORIDE 0.9% 1,000 ML IV SCH ×2 (09:39→12:36)
[2022-01-24 09:48] LABS: Glucose,Whole Blood 72 mg/dL (70-110)
[2022-01-24 10:06] LABS: African American GFR (CKD) >90 (>60 ml/min/1.73 sqM); Anion Gap 14 mmol/L; Blood Urea Nitrogen 2 mg/dL (7-17); Calcium 8.1 mg/dL (8.4-10.2); Carbon Dioxide 26 mmol/L (22-30); Chloride 97 mmol/L (98-107); Glucose 65 mg/dL (74-99); Non-African American GFR(CKD) >90 (>60 ml/min/1.73 sqM); Potassium 3.1 mmol/L (3.5-5.1); Sodium 137 mmol/L (137-145)
[2022-01-24 10:27] VITALS: BMI 34.7
[2022-01-24] MEDS ORDERED: ASPIRIN 81 MG PO SCH (11:45)
[2022-01-24 11:49] LABS: Glucose,Whole Blood 68 mg/dL (70-110)
[2022-01-24 12:28] VITALS: BP 112/70; PULSE 63
--- NOTE | 2022-01-24 14:03 | P.CNNES ---
History of Present Illness Consult date: 01/24/22 Requesting physician: Tyler Ludwig Reason for Consult: CVA History of Present Illness: Patient is a 46-year-old female with history of hypertension, otherwise healthy came to the hospital yesterday at 1:38 PM for evaluation of transient right facial droop and right facial numbness. Patient states that yesterday at around 1:30 PM she noticed that her right corner of the mouth felt numb like novocaine shot. She felt some spasms in the muscle on the right facial region. Her lips and cheek on the right side felt swollen. Her noticed that her right eye was opened slightly more than the left, and her right face was droopy. There was no associated slurred speech, although he feels as she was talking as if she was holding a cotton in her cheek. Patient denies any numbness or tingling of the extremities, focal weakness. Denies any visual symptoms or headaches yesterday. Denies any balance issues. Vital signs arrival blood pressure 144/101, which came down to 116/77. Pulse is 62 temperature 98.1. Blood test shows normal CBC, PT/PTT, sodium is normal potassium 3.3, normal renal functions. Hepatic panel, troponin normal. CT head showed no acute process. I personally reviewed CT head, agree with the findings. CTA of head and neck was reported as "negative". Empty sella turcica. Carotid Doppler revealed antegrade flow in the vertebral arteries. Images suggest less than 20% stenosis both ICA. Chest x-ray was normal. Patient had a 2-D echo on 08/05/2021, which revealed normal left ventricle size. Mild concentric LVH. EF is between 50-55%. Normal left atrial size. Patient states that her symptoms significantly started improving around 2:15 PM and then resolved by 5-6 PM. She has no further episodes of numbness tingling focal weakness. Patient states that today she is noticing some bifrontal headache which she relates to to 3/10, without any nausea vomiting light or noise sensitivity. She could not describe the type of headache although she "knows it's there". Patient states that about a month ago after brushing her teeth, she noticed pain in the right mastoid region which lasted for 5 days and then went away. She has recurrence of the same pain in the right mastoid region after brushing her teeth yesterday. The pain only bothers when she touches the mastoid region. Otherwise is no headache. She denies any problems with taste sensation, any hearing loss, hyperacusis or lacrimation. Patient has history of hypertension, denies diabetes or hyperlipidemia. Denies any tobacco or alcohol use. 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 Patient's home medications include atenolol 25 mg, potassium, omeprazole. Patient does not take any antiplatelet medication at home. Review of Systems Constitutional: Denies chills, Denies fever Ears, nose, mouth and throat: Reports headache, Denies sore throat Cardiovascular: Denies chest pain, Denies shortness of breath Respiratory: Denies cough Gastrointestinal: Denies abdominal pain, Denies diarrhea, Denies nausea, Denies vomiting Genitourinary: Denies dysuria, Denies hematuria Musculoskeletal: Denies myalgias Integumentary: Denies pruritus, Denies rash Neurological: Reports headaches, Reports numbness, Denies change in speech, Denies double vision, Denies gait dysfunction, Denies head injury, Denies hearing difficulties, Denies loss of vision, Denies weakness Psychiatric: Denies anxiety, Denies depression Endocrine: Denies fatigue, Denies weight change Hematologic/Lymphatic: Denies easy bleeding Allergic/Immunologic: Denies wheezing Past Medical History Past Medical History: Hypertension, Osteoarthritis (OA) Additional Past Medical History / Comment(s): arthritis bilateral knees, hx of low potassium w/HCTZ. History of Any Multi-Drug Resistant Organisms: None Reported Past Surgical History: Bariatric Surgery, Section, Cholecystectomy, Orthopedic Surgery, Tubal Ligation Additional Past Surgical History / Comment(s): Left shoulder X2, bilateral arthoscopic knee surgery, gastric bypass 10-11-21. Past Anesthesia/Blood Transfusion Reactions: Motion Sickness, Postoperative Nausea & Vomiting (PONV) Additional Past Anesthesia/Blood Transfusion Reaction / Comment(s): Slow to wake up. Past Psychological History: No Psychological Hx Reported Additional Psychological History / Comment(s): Pt resides with her spouse. She is independent. Smoking Status: Never smoker Past Alcohol Use History: None Reported Past Drug Use History: None Reported - Past Family History Father Family Medical History: Hyperlipidemia, Hypertension Additional Family Medical History / Comment(s): pacemaker for arrhythmia Mother Family Medical History: No Reported History Medications and Allergies Home Medications Medication Instructions Recorded Confirmed Type Potassium Chloride [K-Tab ER] 20 meq PO DAILY 11/25/21 01/23/22 History Omeprazole [PriLOSEC] 40 mg PO DAILY #90 cap 01/10/22 01/23/22 Rx Aspirin 81 mg PO DAILY #30 tab 01/24/22 Rx Atorvastatin [Lipitor] 20 mg PO HS #30 tab 01/24/22 Rx Allergies Allergy/AdvReac Type Severity Reaction Status Date / Time lactulose AdvReac Headache Verified 01/23/22 14:47 Physical Examination - Vital Signs Vital Signs: Vital Signs Temp Pulse Pulse Resp BP BP Pulse Ox 01/24/22 09:33 97.9 F 59 L 18 110/73 97 01/24/22 04:00 98 F 84 16 102/65 96 01/24/22 00:00 59 L 19 112/77 98 01/23/22 20:20 98.3 F 56 L 17 117/78 96 01/23/22 16:46 98.1 F 56 L 56 L 16 111/74 111/74 97 01/23/22 16:43 98.1 F 56 L 17 111/74 97 01/23/22 16:30 97.3 F L 67 20 117/70 97 01/23/22 16:15 97.2 F L 67 20 115/78 98 01/23/22 16:00 97.8 F 70 20 120/80 98 01/23/22 15:30 62 20 112/67 97 01/23/22 15:15 62 20 116/70 98 01/23/22 15:00 98.0 F 67 20 117/70 98 01/23/22 14:45 97.6 F 62 20 119/70 98 01/23/22 14:30 97.6 F 64 18 117/62 98 01/23/22 14:15 97.8 F 63 20 112/68 98 01/23/22 14:00 97.8 F 67 20 116/77 98 01/23/22 13:40 98.1 F 62 18 144/101 99 Intake and Output 01/23/22 01/24/22 01/24/22 22:59 06:59 14:59 Other: Voiding Method Toilet # Voids 1 2 Weight 88.904 kg Patient is a middle aged female, very pleasant, in no acute distress. Patient is alert awake oriented to time place and person. Speech and language functions are normal. Patient can name and repeat very well. No aphasia or dysarthria. Attention, concentration and fund of knowledge is adequate. On cranial nerve examination, pupils are equal, round and reacting to light, visual ruiz are full on confrontation, with no neglect on double simultaneous depression. Extraocular muscles are intact with no nystagmus. Patient has very minimal right upper lip droopiness, but that is her baseline. Patient's and concurred and she had a picture with her smile from a few weeks ago, which was exactly similar. Face is symmetric, tongue protrudes to the midline. Palatal elevation and sensation normal, hearing and shoulder shrug normal, facial sensation normal. On muscle strength testing, there is no pronator drift and the strength is normal in arms and legs distally and proximally. Deep tendon reflexes are symmetric and hypoactive and plantars downgoing bilaterally. Sensory to touch is equal with no neglect on double simultaneous stimulation. Cerebellar function showed no ataxia for [id number] testing. No dysdiadochokinesia. No ataxia for [id number] testing on either side. Tone and bulk of muscles normal. Gait deferred. On general examination, there is no carotid bruit or murmur, S1-S2 audible. Chest is clear on consultation. Abdomen is soft nontender. No organomegaly, bowel sounds present. Peripheral pulses are present. No edema. Results - Laboratory Findings CBC and BMP: 01/23/22 14:05 01/24/22 07:29 Abnormal Lab Findings: Abnormal Labs 01/23/22 01/23/22 01/23/22 14:05 14:05 20:44 Hgb 16.1 H Hct 48.4 H Potassium 3.3 L Chloride 93 L BUN 4 L Glucose 71 L POC Glucose (mg/dL) 68 L Calcium Total Bilirubin 1.7 H 01/24/22 01/24/22 05:58 07:29 Hgb Hct Potassium 3.1 L Chloride 97 L BUN 2 L Glucose 65 L POC Glucose (mg/dL) 64 L Calcium 8.1 L Total Bilirubin Assessment and Plan Assessment: * Possible TIA manifesting with transient right facial droop, right facial numbness and minimal slurring, that resolved in a few hours. At present all symptoms have resolved. Her current NIH stroke scale is 0. Differential diagnoses also include peripheral process like Marquis's palsy, but would not resolve within a few hours. Presentation more like TIA. * Hypertension * Dyslipidemia * Status post bariatric surgery in July 2021. Plan: * CTA of head and neck was reported as "negative". Empty sella turcica. Pat ient may need outpatient endocrine workup to rule out pituitary dysfunction. Patient does have electrolyte imbalance, and need to rule out pituitary hypofunction. I personally reviewed MRI, and agree with the findings. * Carotid Doppler revealed antegrade flow in the vertebral arteries. Images sug gest less than 20% stenosis both ICA. * 2-D echo with bubble study was commended. It revealed left ventricular ejection fraction 50-55%. Mild MR. No pericardial effusion. Atrial size is normal. No shunt. Not clear if bubble study was done. * Telemetric monitoring showing normal sinus rhythm. * Patient has received aspirin loading dose 324 mg in the ER. Recommend patient start aspirin 81 mg daily. Patient will check with her bariatric surgeon for clearance for aspirin. * Hemoglobin A1c 4.6 * Lipid panel with cholesterol 163, LDL 109, HDL 31 and triglycerides 112. Patient to be started on Lipitor 20 mg daily to target LDL <70. * Discussed with patient about further imaging like MRI. Patient wants to go home as soon as possible, and probably will not be able to get it done at least until later today. She did not want to wait. MRI will not change the management either. Treatment remains the same as above. * Discussed with primary physician. * Neurologically clear. Time with Patient: Greater than 30
[2022-01-24 16:25] LABS: Glucose,Whole Blood 63 mg/dL (70-110)
[2022-01-24 16:42] LABS: Glucose,Whole Blood 62 mg/dL (70-110)
[2022-01-24 16:56] LABS: Glucose,Whole Blood 87 mg/dL (70-110)
[2022-01-24 17:21] LABS: Chol/HDL Ratio 4.56 Ratio; LDL Cholesterol,Calculated 83.2 mg/dL (0.0-131.0)
[2022-01-24] MEDS ORDERED: ATORVASTATIN 20 MG TAB PO SCH (21:00)
--- NOTE | 2022-01-25 09:53 | CA ---
Transthoracic Echo Report Name: Madina Murphy Age: 46 Gender: F : 1975 Exam Date: 01/24/2022 16:17 Exam Location: [facility] Ht (in): 63 Wt (lb): 190 Ordering Physician: Zachary Durham MD Attending/Referring Phys: Seat Coverer Joyce Inman, NERY Procedure CPT: Indications: Stroke bubble study r/o pfo Cardiac Hx: Technical Quality: Good Contrast 1: Total Dose (mL): Contrast 2: Total Dose (mL): MEASUREMENTS (Male / Female) Normal Values DOPPLER MV Area PHT 4.4 cm??? Mitral E Point Velocity 81.5 cm/s Mitral A Point Velocity 77.6 cm/s Mitral E to A Ratio 1.1 MV Deceleration Time 171.5 ms FINDINGS Left Ventricle Normal left ventricular size, wall thickness, left ventricular ejection fraction is estimated at 50-55%. Right Ventricle The right ventricle is normal in size and function. Right Atrium The right atrium is normal in size. Left Atrium The left atrium is normal in size. No [id number] shunt seen at the atrial level. Mitral Valve Structurally normal mitral valve without significant stenosis or prolapse. There is mild mitral regurgitation. Aortic Valve Structurally normal aortic valve without significant sclerosis or stenosis. There is no aortic regurgitation. Tricuspid Valve Structurally normal tricuspid valve without significant stenosis. Pulmonary artery systolic pressure is normal. Pulmonic Valve Structurally normal pulmonic valve without significant stenosis. There is no pulmonic regurgitation. Pericardium Normal pericardium without effusion. Aorta Normal aortic root dimension. CONCLUSIONS Left ventricular ejection fraction 50-55% Mild mitral regurgitation No pericardial effusion Previewed by: Dr. Carlos Alberto Bowman DO (Electronically Signed) Final Date: 25 January 2022 09:53
--- NOTE | 2022-01-25 15:08 | P.DS ---
Providers Date of admission: 01/23/22 14:37 Expected date of discharge: 01/24/22 Attending physician: Good Emanuel Consults: 01/23/22 14:38 Consult Physician Urgent Consulting Provider: Zachary Durham Consult Reason/Comments: cva Do you want consulting provider notified?: Yes Primary care physician: Azul Cha [facility] Hospital Course: This is a very pleasant 46-year-old patient follows with Dr. Azul Cha. Chronic stable medical conditions include hypertension, osteoarthritis, morbid obesity. Had gastric bypass bariatric surgery by Dr. Adamson in September 2021. Patient has lost about 50 pounds since then. Unfortunately patient's had at least couple of esophageal dilatations following the procedure. Also had peptic ulcer disease. Patient easily feels full. Not eating much. Also requiring laxatives for bowel movement. Patient was here in July 2021. That time had hypokalemia. Had a 24-hour urine done. 4 potassium. Followed up with nephrology.. Patient now presented with right facial weakness some changes speech that lasted for a few hours. Symptoms completely resolved. January 24: Patient's and daughter at the bedside. Care was discussed at length with the patient. Course was discussed following her gastric bypass surgery. Diet was discussed in detail. Importance of getting nutrients in. Including shakes. Discussed with Dr. Henao from neurology. He feels it was a TIA. Neurological workup negative. Computed tomography scan showed possible empty sella. Patient to follow-up with endocrinology Dr. Adan. Patient also to follow-up with nephrology because of hypokalemia. Questions answered. Patient wanted to go to [place]. Explained why it started good idea currently for some time. Hypoglycemia also discussed. 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 No smoking no alcohol Family history: Hypertension, hyperlipidemia Physical examination: VITAL SIGNS: 97.8, 58, 18, 145 with 78, 97% room air GENERAL: Sitting up in bed, awake, comfortable,. EYES: Pupils equal. Conjunctiva normal. HEENT: External appearance of nose and ears normal, oral cavity grossly normal. NECK: JVD not raised; masses not palpable. HEART: First and second heart sounds are normal; no edema. LUNGS: Respiratory rate normal; clear to auscultation. ABDOMEN: Soft, nontender, liver spleen not palpable, no masses palpable. PSYCH: Alert and oriented x3; mood and affect normal. MUSCULOSKELETAL:No Clubbing/cyanosis;muscles-grossly intact NEUROLOGICAL: Cranial nerves grossly intact; no facial asymmetry, power and sensation grossly intact. INVESTIGATIONS, reviewed in the clinical context: Sodium 137 potassium 3.1 creatinine 0.55 LDL 83 blood glucose 65 2-D echocardiogram: EF 50-55%. Carotid Doppler: No sitting for stenosis CT angiogram of the brain: Empty sella Computed tomography scan of the brain without contrast: Unremarkable Assessment and plan: -TIA Aspirin. Lipitor. Seen by neurology. -Hypokalemia. This is also present back in July of this year. Had a 24-hour urine. Patient told to follow-up with nephrology. -Obesity BMI 34.7 Patient underwent Johana-en-Y gastric bypass surgery in September 2021. Has lost about 50 pounds. -Essential hypertension -Peptic ulcer disease Prilosec -Esophageal stricture following gastric bypass surgery Outpatient dilatation has been done by Dr. Adamson -Cuca Carlton when necessary -Empty sella on CT angiogram of the brain. Follow-up with stretcher leveler operator helper , as outpatient Disposition: Home Plan - Discharge Summary Discharge Rx Participant: No New Discharge Prescriptions: New Aspirin 81 mg PO DAILY #30 tab Atorvastatin [Lipitor] 20 mg PO HS #30 tab Continue Omeprazole [PriLOSEC] 40 mg PO DAILY #90 cap Potassium Chloride [K-Tab ER] 20 meq PO DAILY Discontinued atenoloL 25 mg PO DAILY Discharge Medication List Potassium Chloride [K-Tab ER] 20 meq PO DAILY 11/25/21 [History] Omeprazole [PriLOSEC] 40 mg PO DAILY #90 cap 01/10/22 [Rx] Aspirin 81 mg PO DAILY #30 tab 01/24/22 [Rx] Atorvastatin [Lipitor] 20 mg PO HS #30 tab 01/24/22 [Rx] Follow up Appointment(s)/Referral(s): Karina Goncalves MD [STAFF PHYSICIAN] - 1 Week (You need an echo. Spoke to medical receptionist assistant. Office will call you with appointment time) Jewel Adan MD [REFERRING] - 1 Week (empty sella) Florence Root MD [STAFF PHYSICIAN] - 02/09/22 3:30 pm (Bariatric clinic- please follow up. ) Ko Brown MD [Medical Doctor] - 2 Weeks (called and left message with your information- office should call you with appointment) Azul Cha MD [Primary Care Provider] - 1-2 days Patient Instructions/Handouts: Transient Ischemic Attack (DC) Discharge Disposition: HOME SELF-CARE
== END 2022-01-24 17:42 | disposition home or self-care (01) ==
LOC: EC 13:38 → INTOOBSV 14:37 → 3SCARD 14:37 → UNDODISIN 01-24 17:42
PROVIDERS: ADMIT Hospitalist; ATTEND Hospitalist
DX: G45.9 Transient cerebral ischemic attack, unspecified (principal); I10 Essential (primary) hypertension; E87.6 Hypokalemia; M17.0 Bilateral primary osteoarthritis of knee; E78.5 Hyperlipidemia, unspecified; K27.9 Peptic ulcer, site unspecified, unspecified as acute or chronic, without hemorrhage or perforation; E16.2 Hypoglycemia, unspecified; I34.0 Nonrheumatic mitral (valve) insufficiency; K22.2 Esophageal obstruction; E66.01 Morbid (severe) obesity due to excess calories; Z68.34 Body mass index [BMI] 34.0-34.9, adult; G89.29 Other chronic pain; M25.512 Pain in left shoulder; M54.50 Low back pain, unspecified; Z79.899 Other long term (current) drug therapy; Z88.8 Allergy status to other drugs, medicaments and biological substances; Z98.84 Bariatric surgery status; Z86.16 Personal history of COVID-19; Z90.49 Acquired absence of other specified parts of digestive tract; Z98.51 Tubal ligation status; Z98.891 History of uterine scar from previous surgery; Z98.890 Other specified postprocedural states; Z83.49 Family history of other endocrine, nutritional and metabolic diseases; Z82.49 Family history of ischemic heart disease and other diseases of the circulatory system
CPT/HCPCS: 99285; 36415; 93005; 93306; 97161; 80061; 80053; 80048; 83735; 84484; 85025; 85610; 85730; 83036; 71046; 93880; 70496; 70450; 70498; G0378 ×2; Q9967

== ENCOUNTER → 2022-04-27 | Outpatient (CLI) | payer BC, OTHER ==
[2022-04-27 15:31] VITALS: BP 137/88; PULSE 65; TEMP 97.9; BMI 27.3
--- NOTE | 2022-04-27 15:50 | P.BASOAP ---
Subjective Progress Note Date: 04/27/22 She was 347 pounds now 157 pounds. She is still losing weight. She does keto and intermittent fasting to lose the weight. She is at 21 grams. No headaches. She drinks 67 oz daily. She does not track calories. Her protein intake. No snacking. No moderate exercising. She lost 200 pounds. She is not hungry. She east 7 am, 12 and 6 pm. No stuck. No hair loss. Objective - Vital Signs Vital signs: Vital Signs Temp 97.9 F 04/27/22 15:27 Pulse 65 04/27/22 15:27 Resp BP 137/88 04/27/22 15:27 Pulse Ox FiO2 Intake & Output 04/26/22 04/27/22 04/27/22 18:59 06:59 18:59 Weight 71.214 kg Assessment/Plan Plan: Date: 04/27/22 Initial Weight: 142.519 kg Initial BMI: 54.8 Current Weight: 71.214 kg Current BMI: 27.3 Type of Surgery: Total Volume in Band: Previous Volume: Volume Removed: Volume Added: Band Size:
[2022-04-27 17:16] LABS: INR 1.1 (<1.2); Partial Thromboplastin Time 29.6 sec (22.0-30.0)
[2022-04-27 23:40] LABS: HCT 40.7 % (37.2-46.3); HGB 13.9 g/dL (12.0-15.0); MCH 32.9 pg (27.0-32.0); MCHC 34.2 g/dL (32.0-37.0); MCV 96.4 fL (80.0-97.0); Mean Platelet Volume 13.7 fL (9.5-12.2); NRBC Per 100 WBC 0 /100 WBCS (0.0-0.0); Platelet Count 145 X 10*3/uL (140-440); RBC 4.22 X 10*6/uL (4.10-5.20); WBC 5.33 X 10*3/uL (4.50-10.00)
[2022-04-28 02:25] LABS: Chol/HDL Ratio 5.03 Ratio; LDL Cholesterol,Calculated 133.3 mg/dL (0.0-131.0); VLDL Calculation 15.66 mg/dL (5.00-40.00)
[2022-04-28 02:27] LABS: % Iron Saturation 16.67 (12.00-45.00); ALT 9 U/L (8-44); AST 11 U/L (13-35); Albumin 3.8 g/dL (3.8-4.9); Albumin/Globulin Ratio 1.58 (1.60-3.17); Alkaline Phosphatase 72 U/L (41-126); BUN/Creat Ratio 12.21 Ratio (12.00-20.00); Blood Urea Nitrogen 8.7 mg/dL (9.0-27.0); Calcium 9.3 mg/dL (8.7-10.3); Carbon Dioxide 26.5 mmol/L (20.0-27.5); Chloride 98 mmol/L (96-109); Globulin 2.4 g/dL (1.6-3.3); Glucose 76 mg/dL (70-110); Iron 33 ug/dL (50-170); Magnesium 2.1 mg/dL (1.5-2.4); Non-African American GFR(CKD) 101.8 (60.0-200.0); Phosphorus 3.2 mg/dL (2.4-5.1); Potassium 4.2 mmol/L (3.5-5.5); Sodium 139 mmol/L (135-145); Total Iron Binding Capacity 197 ug/dL (228-460); Total Protein 6.3 g/dL (6.2-8.2)
[2022-04-29 07:04] LABS: Vit B1(Thiamine) 75 ug/L (38-122)
== END ==
LOC: BARWHC3 14:38
PROVIDERS: ATTEND Surgery Plastic and Reconstructive Surgery
DX: E66.01 Morbid (severe) obesity due to excess calories (principal); E89.1 Postprocedural hypoinsulinemia; D50.8 Other iron deficiency anemias; K91.2 Postsurgical malabsorption, not elsewhere classified; E44.1 Mild protein-calorie malnutrition; E45 Retarded development following protein-calorie malnutrition; E55.9 Vitamin D deficiency, unspecified; K74.1 Hepatic sclerosis; N19 Unspecified kidney failure; T56.894A Toxic effect of other metals, undetermined, initial encounter; K50.90 Crohn's disease, unspecified, without complications; Z91.011 Allergy to milk products
CPT/HCPCS: 80053; 80061; 82306; 82525; 82607; 82728; 82746; 83036; 83540; 83550; 83735; 83970; 84100; 84134; 84255; 84425; 84443; 84590; 84630; 85027; 85610; 85730; 97803; 99211

== ENCOUNTER → 2022-10-19 | Outpatient (CLI) | payer BC, OTHER ==
[2022-10-19 16:53] VITALS: BP 129/75; PULSE 60; RESP 12; TEMP 98.5; BMI 20.5
--- NOTE | 2022-10-19 17:58 | P.BASOAP ---
Subjective Progress Note Date: 10/19/22 She has moderate weight loss. She is intermittent fasting. She is over 1 year out. She is getting body contour surgery. Expectations for skin removal. She has back pain. She has troubles with grooming. Leasing Director advised. REcommend colon screen advised. Objective - Vital Signs Vital signs: Vital Signs Temp 98.5 F 10/19/22 16:46 Pulse 60 10/19/22 16:46 Resp 12 10/19/22 16:46 BP 129/75 10/19/22 16:46 Pulse Ox FiO2 Intake & Output 10/18/22 10/19/22 10/19/22 18:59 06:59 18:59 Weight 53.342 kg Assessment/Plan Plan: Date: 10/19/22 Initial Weight: 142.519 kg Initial BMI: 54.8 Current Weight: 53.342 kg Current BMI: 20.5 Type of Surgery: Total Volume in Band: Previous Volume: Volume Removed: Volume Added: Band Size:
== END ==
LOC: BARWHC3 16:26
PROVIDERS: ATTEND Surgery Plastic and Reconstructive Surgery
DX: E66.01 Morbid (severe) obesity due to excess calories (principal); Z68.20 Body mass index [BMI] 20.0-20.9, adult; Z91.011 Allergy to milk products
CPT/HCPCS: 97803; 99211

== ENCOUNTER → 2022-10-22 | Outpatient (CLI) | payer BC, OTHER ==
[2022-10-22 09:33] LABS: INR 1.1 (<1.2); Partial Thromboplastin Time 27.1 sec (22.0-30.0); Prothrombin Time 11.1 sec (9.0-12.0)
[2022-10-22 14:17] LABS: HCT 42.6 % (37.2-46.3); HGB 14.5 g/dL (12.0-15.0); MCH 33.7 pg (27.0-32.0); MCV 99.1 fL (80.0-97.0); Mean Platelet Volume 11.8 fL (9.5-12.2); NRBC Per 100 WBC 0 /100 WBCS (0.0-0.0); Platelet Count 140 X 10*3/uL (140-440); RDW 12.5 % (11.5-14.5); WBC 3.55 X 10*3/uL (4.50-10.00)
[2022-10-22 14:44] LABS: % Iron Saturation 31.73 (12.00-45.00); Magnesium 2.7 mg/dL (1.5-2.4); Phosphorus 3.4 mg/dL (2.4-5.1)
[2022-10-22 14:51] LABS: African American GFR (CKD) 97.7 (60.0-200.0); Albumin 4.6 g/dL (3.8-4.9); Albumin/Globulin Ratio 2.04 (1.60-3.17); Anion Gap 13.5 mmol/L (10.00-18.00); BUN/Creat Ratio 24.88 Ratio (12.00-20.00); Blood Urea Nitrogen 20.7 mg/dL (9.0-27.0); Calcium 9.5 mg/dL (8.7-10.3); Carbon Dioxide 31.7 mmol/L (20.0-27.5); Globulin 2.3 g/dL (1.6-3.3); Non-African American GFR(CKD) 84.3 (60.0-200.0); Potassium 3.6 mmol/L (3.5-5.5); Total Protein 6.9 g/dL (6.2-8.2)
== END | disposition home or self-care (01) ==
LOC: LABWHC1 08:38
PROVIDERS: ATTEND Surgery Plastic and Reconstructive Surgery
DX: E66.01 Morbid (severe) obesity due to excess calories (principal); D50.8 Other iron deficiency anemias; K91.2 Postsurgical malabsorption, not elsewhere classified; E44.0 Moderate protein-calorie malnutrition; E44.1 Mild protein-calorie malnutrition; E45 Retarded development following protein-calorie malnutrition; E55.9 Vitamin D deficiency, unspecified; K74.1 Hepatic sclerosis; N19 Unspecified kidney failure; T56.894A Toxic effect of other metals, undetermined, initial encounter; K50.90 Crohn's disease, unspecified, without complications
CPT/HCPCS: 36415; 80053; 82306; 82525; 82607; 82728; 82746; 83036; 83540; 83550; 83735; 83970; 84100; 84134; 84255; 84425; 84443; 84590; 84630; 85027; 85610; 85730

== ENCOUNTER 2022-11-17 08:00 | Day surgery (SDC) | payer BC, OTHER ==
--- NOTE | 2022-11-17 07:55 | P.GSHP ---
History of Present Illness H&P Date: 11/17/22 CHIEF COMPLAINT: GERD and colon screen HISTORY OF PRESENT ILLNESS: The patient is a 47-year-old female who presents with gastroesophageal reflux disease and need for colon screen. Upper and lower endoscopy were offered for further evaluation and management. PAST MEDICAL HISTORY: Please see list. PAST SURGICAL HISTORY: Please see list. MEDICATIONS: Please see list. ALLERGIES: Please see list. SOCIAL HISTORY: No illicit drug use FAMILY HISTORY: No reports of Crohn disease or ulcerative colitis. REVIEW OF ORGAN SYSTEMS: CONSTITUTIONAL: No reports of fevers or chills. GI: Denies any blood in stools or constipation. PHYSICAL EXAM: VITAL SIGNS: Stable GENERAL: Well-developed pleasant in no acute distress. HEENT: No scleral icterus. Extraocular movements grossly intact. Moist buccal mucosa. NECK: Supple without lymphadenopathy. CHEST: Unlabored respirations. Equal bilateral excursions. CARDIOVASCULAR: Regular rate and rhythm. Distal 2+ pulses. ABDOMEN: Soft, nondistended. MUSCULOSKELETAL: No clubbing, cyanosis, or edema. ASSESSMENT: 1. Gastroesophageal reflux disease 2. Colon screen. PLAN: 1. Recommend proceeding with an upper and lower endoscopy Past Medical History Past Medical History: GERD/Reflux, Hypertension, Osteoarthritis (OA) Additional Past Medical History / Comment(s): arthritis bilateral knees. WEIGHT LOSS RESOLVED HYPERTENSION. HAS LOST ABOUT 200 POUNDS FRPM BYPASS SURGERY. hx of low potassium w/HCTZ. History of Any Multi-Drug Resistant Organisms: None Reported Past Surgical History: Bariatric Surgery, Section, Cholecystectomy, Orthopedic Surgery, Tubal Ligation Additional Past Surgical History / Comment(s): Left shoulder X2, bilateral arthoscopic knee surgery, gastric bypass 10-11-21. Past Anesthesia/Blood Transfusion Reactions: Motion Sickness, Postoperative Nausea & Vomiting (PONV) Additional Past Anesthesia/Blood Transfusion Reaction / Comment(s): Slow to wake up. Past Psychological History: No Psychological Hx Reported Smoking Status: Never smoker Past Alcohol Use History: None Reported Past Drug Use History: None Reported - Past Family History Father Family Medical History: Hyperlipidemia, Hypertension Additional Family Medical History / Comment(s): pacemaker for arrhythmia Mother Family Medical History: No Reported History Medications and Allergies Home Medications Medication Instructions Recorded Confirmed Type Iron 18 mg PO DAILY 07/20/22 11/16/22 History Multivitamins, Thera [Multivitamin 1 tab PO DAILY 07/20/22 11/16/22 History (formulary)] Nystatin 100,000 Unit/gm Powd 1 applic TOPICAL BID #60 gm 07/20/22 11/16/22 Rx [Mycostatin Powder] Vitamin A 2,400 mcg PO DAILY 07/20/22 11/16/22 History Magnesium Hydroxide [Milk of 240 mg PO DAILY 10/19/22 11/16/22 History Magnesia] Omeprazole [PriLOSEC] 40 mg PO QAM 11/14/22 11/16/22 History Allergies Allergy/AdvReac Type Severity Reaction Status Date / Time lactulose AdvReac Headache Verified 11/14/22 14:25
[2022-11-17 08:34] VITALS: RESP 16; TEMP 97.9
[2022-11-17] MEDS ORDERED: LACTATED RINGERS 1,000 ML IV ONE (08:44)
[2022-11-17 08:45] LABS: Glucose,Whole Blood 73 mg/dL (70-110)
[2022-11-17] MEDS ORDERED: LIDOCAINE 1% (10MG/ML) FOR IV START INTRADERMA ONE (08:46)
[2022-11-17] MEDS ORDERED: PROPOFOL 10 MG/ML 20 ML VIAL IV ONE (08:50)
[2022-11-17] MEDS ORDERED: LIDOCAINE 2% INJ 20 MG/ML (2 ML VIAL) ONE (08:50)
--- NOTE | 2022-11-17 09:35 | P.PCN ---
Date of Procedure: 11/17/22 Description of Procedure: PREOPERATIVE DIAGNOSIS: Colonoscopy screening. POSTOPERATIVE DIAGNOSIS: Colonoscopy screening. OPERATION: Colonoscopy to the cecum, ileocecal valve and appendiceal orifice. SURGEON: Florence Root MD. ANESTHESIA: MAC. INDICATIONS: The patient is a 47-year-old female who presents for colonoscopy screening. Benefits and risks were described and informed consent was obtained. DESCRIPTION OF PROCEDURE: The patient had undergone Sutab prep. The patient had been brought into the operating room and laid in the left lateral decubitus position. After adequate intravenous sedation, the rectum was examined with 2% lidocaine jelly. No external hemorrhoids were encountered. The rectal tone was within normal limits. No lesions were palpated in the rectal vault. An Olympus colonoscope was advanced until the cecum, ileocecal valve and appendiceal orifice were clearly viewed. The prep was excellent. No scattered diverticulosis was encountered. No colonic polyps were found. No evidence of focal colitis was found. Retroflexion of the scope demonstrated grade 1 internal hemorrhoids without active bleeding or inflammation. The colon was desufflated. The patient had tolerated the procedure well. Withdrawal time was over 6 minutes. FINDINGS: Aronchick preparation quality scale 1 (1-5) Internal hemorrhoids, grade 1 No external prolapsed hemorrhoids. No arteriovenous malformations. No adenomatous polyps. No focal colitis. RECOMMENDATIONS: Lower endoscopy in 10 years, 2032 Plan - Discharge Summary Discharge Rx Participant: No New Discharge Prescriptions: Continue Multivitamins, Thera [Multivitamin (formulary)] 1 tab PO DAILY Iron 18 mg PO DAILY Vitamin A 2,400 mcg PO DAILY Nystatin 100,000 Unit/gm Powd [Mycostatin Powder] 1 applic TOPICAL BID #60 gm Magnesium Hydroxide [Milk of Magnesia] 240 mg PO DAILY Omeprazole [PriLOSEC] 40 mg PO QAM Discharge Medication List Iron 18 mg PO DAILY 07/20/22 [History] Multivitamins, Thera [Multivitamin (formulary)] 1 tab PO DAILY 07/20/22 [History] Nystatin 100,000 Unit/gm Powd [Mycostatin Powder] 1 applic TOPICAL BID #60 gm 07/20/22 [Rx] Vitamin A 2,400 mcg PO DAILY 07/20/22 [History] Magnesium Hydroxide [Milk of Magnesia] 240 mg PO DAILY 10/19/22 [History] Omeprazole [PriLOSEC] 40 mg PO QAM 11/14/22 [History] Follow up Appointment(s)/Referral(s): Florence Root MD [STAFF PHYSICIAN] - 12/07/22 Patient Instructions/Handouts: Esophageal Dilation (DC) Activity/Diet/Wound Care/Special Instructions: Repeat colonoscopy in 10 years, 2032 Discharge Disposition: HOME SELF-CARE
--- NOTE | 2022-11-17 09:46 | P.PCN ---
Date of Procedure: 11/17/22 Description of Procedure: PREOPERATIVE DIAGNOSIS: Dysphagia. Gastroesophageal reflux disease Esophageal stricture POSTOPERATIVE DIAGNOSIS: Dysphagia. Gastroesophageal reflux disease Upper esophageal stenosis Gastrojejunal ulcer with stricture OPERATION: Esophagogastrojejunoscopy with rigid dilator over the guidewire 48 Fr with dilation of esophageal stenosis/dysmotility SURGEON: Florence Root MD ANESTHESIA: MAC. INDICATIONS: The patient is a 47-year-old female who presents with a history of dysphagia. Benefits and risks of the procedure were described. Informed consent was obtained. DESCRIPTION: The patient was brought into the endoscopy suite and laid in the left lateral decubitus position. After a timeout was confirmed, the procedure was initiated. An Olympus gastroscope was passedupper esophageal stenosis and into the posterior oropharynx down into the gastric pouch. The scope was entered into the gastric pouch with mild gastrojejunal stenosis along the gastrojejunal anastomosis and ulcer. Next using an [place]ankan rigid dilator, a guidewire was placed through the gastroscope. Next the scope was withdrawn. A 48-Spanish rigid [place]ankan dilator was passed carefully along the posterior oropharynx to 45 cm and left in place for 2-3 minutes stretch. The dilator was withdrawn including the guidewire. The scope was reentered along the posterior oropharynx with no findings of full- thickness tear of the upper esophageal sphincter. No full-thickness injury was encountered. The GI tract was desufflated. The patient tolerated the procedure well. FINDINGS: Gastrojejunal anastomotic stricture with ulceration Upper esophageal stenosis dilated [place]ankan rigid dilator 48-Spanish completed. RECOMMENDATIONS: Upper endoscopy as needed
[2022-11-17 09:55] VITALS: PULSE 50
[2022-11-17 10:10] VITALS: BP 138/87
== END 2022-11-17 10:22 | disposition home or self-care (01) ==
LOC: ORWHC2ENDO 08:00
PROVIDERS: ATTEND Surgery Plastic and Reconstructive Surgery
DX: Z12.11 Encounter for screening for malignant neoplasm of colon (principal); K22.2 Esophageal obstruction; K64.0 First degree hemorrhoids; K21.9 Gastro-esophageal reflux disease without esophagitis; I10 Essential (primary) hypertension; M19.90 Unspecified osteoarthritis, unspecified site; K91.0 Vomiting following gastrointestinal surgery; Z98.84 Bariatric surgery status; Z90.49 Acquired absence of other specified parts of digestive tract; Z98.51 Tubal ligation status; Z98.891 History of uterine scar from previous surgery; Z82.49 Family history of ischemic heart disease and other diseases of the circulatory system; Z83.49 Family history of other endocrine, nutritional and metabolic diseases; Z79.899 Other long term (current) drug therapy; Z91.011 Allergy to milk products
CPT/HCPCS: 81025; 45378; 43248; J2704; J2001; 43249

== ENCOUNTER 2022-12-13 19:31 | Inpatient (IN) | payer BC, OTHER ==
[2022-12-13] MEDS ORDERED: METOCLOPRAMIDE 5 MG/ML 2 ML VIAL IVP STA (19:57)
[2022-12-13] MEDS ORDERED: SODIUM CHLORIDE 0.9% 500 ML 500 ML IV STA (19:57)
[2022-12-13] MEDS ORDERED: diphenhydrAMINE 50 MG/ML 1 ML VIAL IVP STA (19:57)
[2022-12-13] MEDS ORDERED: SODIUM CHLORIDE 0.9% 1,000 ML IV STA (19:57)
[2022-12-13] MEDS ORDERED: IOPAMIDOL CONTRAST (ORAL USE) VIAL PO PRN (19:57)
[2022-12-13] MEDS ORDERED: HYDROmorphone 0.5 MG/0.5 ML SYRINGE IVP STA (19:58)
[2022-12-13 20:04] LABS: Glucose,Whole Blood 113 mg/dL (70-110)
[2022-12-13 20:24] LABS: Basophils % (A) 0 %; Eosinophils % (A) 1 %; HCT 42.5 % (34.0-46.0); HGB 13.5 gm/dL (11.4-16.0); Lymphocytes % (A) 40 %; MCHC 31.8 g/dL (31.0-37.0); MCV 100.6 fL (80.0-100.0); Mean Platelet Volume 8.6; Monocytes # (A) 0.2 k/uL (0-1.0); Monocytes % (A) 5 %; Neutrophils # (A) 2.6 k/uL (1.3-7.7); Neutrophils % (A) 53 %; Platelet Count 162 k/uL (150-450); RBC 4.23 m/uL (3.80-5.40); RDW 12.9 % (11.5-15.5)
[2022-12-13 20:38] LABS: INR 0.9 (<1.2); Partial Thromboplastin Time 25.7 sec (22.0-30.0); Prothrombin Time 9.8 sec (9.0-12.0)
[2022-12-13 20:45] LABS: ALT 93 U/L (4-34); AST 53 U/L (14-36); African American GFR (CKD) >90 (>60 ml/min/1.73 sqM); Albumin 4.4 g/dL (3.5-5.0); Alkaline Phosphatase 73 U/L (38-126); Anion Gap 8 mmol/L; Blood Urea Nitrogen 30 mg/dL (7-17); Calcium 9.3 mg/dL (8.4-10.2); Carbon Dioxide 30 mmol/L (22-30); Chloride 100 mmol/L (98-107); Glucose 103 mg/dL (74-99); Lipase 116 U/L (23-300); Non-African American GFR(CKD) >90 (>60 ml/min/1.73 sqM); Potassium 4.6 mmol/L (3.5-5.1); Sodium 138 mmol/L (137-145); Total Bilirubin 1.4 mg/dL (0.2-1.3); Total Protein 7.6 g/dL (6.3-8.2)
--- NOTE | 2022-12-13 21:13 | ED ---
Abdominal Pain HPI - General Chief Complaint: Abdominal Pain Stated Complaint: Abd pain Time Seen by Provider: 12/13/22 19:53 Source: patient, family, RN notes reviewed Mode of arrival: wheelchair Limitations: no limitations - History of Present Illness Initial Comments: 27 show female presents emergency Department chief complaint abdominal pain. Patient states that started around 1 PM this afternoon. Patient states severe cannot 10 pain she admits nausea vomiting she struggles constipation which she takes Celexa daily she states she does continue diarrhea and constipation. No dysuria no history kidney stones. She states she's had bariatric surgery and is scheduled for laparoscopic exploratory surgery secondary ongoing pain. - Related Data Home Medications Medication Instructions Recorded Confirmed Iron 18 mg PO DAILY 07/20/22 11/16/22 Multivitamins, Thera [Multivitamin 1 tab PO DAILY 07/20/22 11/16/22 (formulary)] Vitamin A 2,400 mcg PO DAILY 07/20/22 11/16/22 Magnesium Hydroxide [Milk of 240 mg PO DAILY 10/19/22 11/16/22 Magnesia] Omeprazole [PriLOSEC] 40 mg PO QAM 11/14/22 11/16/22 Previous Rx's Medication Instructions Recorded Nystatin 100,000 Unit/gm Powd 1 applic TOPICAL BID #60 gm 07/20/22 [Mycostatin Powder] Allergies Allergy/AdvReac Type Severity Reaction Status Date / Time lactulose AdvReac Headache Verified 11/17/22 08:47 Review of Systems ROS Statement: Those systems with pertinent positive or pertinent negative responses have been documented in the HPI. ROS Other: All systems not noted in ROS Statement are negative. Past Medical History Past Medical History: GERD/Reflux, Hypertension, Osteoarthritis (OA) Additional Past Medical History / Comment(s): arthritis bilateral knees. WEIGHT LOSS RESOLVED HYPERTENSION. HAS LOST ABOUT 200 POUNDS FRPM BYPASS SURGERY. hx of low potassium w/HCTZ. History of Any Multi-Drug Resistant Organisms: None Reported Past Surgical History: Bariatric Surgery, Section, Cholecystectomy, Orthopedic Surgery, Tubal Ligation Additional Past Surgical History / Comment(s): Left shoulder X2, bilateral arthoscopic knee surgery, gastric bypass 10-11-21. Past Anesthesia/Blood Transfusion Reactions: Motion Sickness, Postoperative Nausea & Vomiting (PONV) Additional Past Anesthesia/Blood Transfusion Reaction / Comment(s): Slow to wake up. Past Psychological History: No Psychological Hx Reported Smoking Status: Never smoker Past Alcohol Use History: None Reported Past Drug Use History: None Reported - Past Family History Father Family Medical History: Hyperlipidemia, Hypertension Additional Family Medical History / Comment(s): pacemaker for arrhythmia Mother Family Medical History: No Reported History General Exam Limitations: no limitations General appearance: alert, in no apparent distress Head exam: Present: atraumatic, normocephalic, normal inspection Eye exam: Present: normal appearance, PERRL, EOMI. Absent: scleral icterus, conjunctival injection, periorbital swelling ENT exam: Present: normal exam, normal oropharynx, mucous membranes moist Neck exam: Present: normal inspection, full ROM. Absent: tenderness, meningismus, lymphadenopathy Respiratory exam: Present: normal lung sounds bilaterally. Absent: respiratory distress, wheezes, rales, rhonchi, stridor Cardiovascular Exam: Present: regular rate, normal rhythm, normal heart sounds. Absent: systolic murmur, diastolic murmur, rubs, gallop, clicks GI/Abdominal exam: Present: soft, tenderness, normal bowel sounds. Absent: distended, guarding, rebound, rigid Course Vital Signs 12/13/22 19:45 Temperature 97.7 F Pulse Rate 66 Respiratory 24 Rate Blood Pressure 144/91 O2 Sat by Pulse 100 Oximetry Medical Decision Making - Medical Decision Making Was pt. sent in by a medical professional or institution (ZULEYKA Hurtado, MEDICATION MANAGER, urgent care, hospital, or correction...) When possible be specific @ -No Did you speak to anyone other than the patient for history (EMS, parent, family, police, friend...)? What history was obtained from this source @ -No Did you review nursing and triage notes (agree or disagree)? Why? @ -I reviewed and agree with nursing and triage notes Were old charts reviewed (outside hosp., previous admission, EMS record, old EKG, old radiological studies, urgent care reports/EKG's, correction records)? Report findings @ -No old charts were reviewed Differential Diagnosis (chest pain, altered mental status, abdominal pain women, abdominal pain men, vaginal bleeding, weakness, fever, dyspnea, syncope, headache, dizziness, GI bleed, back pain, seizure, CVA, palpatations, mental health, musculoskeletal)? @ -Differential Abdominal Pain Women: Appendicitis, Cholecystitis, diverticulosis, ischemic bowel, pancreatitis, hepatitis, UTI, gastroenteritis, AAA, incarcerated hernia, bowel obstruction, constipation, inflammatory bowel, hepatitis, peptic ulcer disease, splenic infarction, perforated viscus, vulvitis, ovarian torsion, PID, kidney stone, placenta abruption, this is not meant to be an all-inclusive listn EKG interpreted by me (3pts min.). @ -None X-rays interpreted by me (1pt min.). @ -None done CT interpreted by me (1pt min.). @ -CT abdomen pelvis shows evidence of small bowel obstruction, postoperative c hanges U/S interpreted by me (1pt. min.). @ -None done What testing was considered but not performed or refused? (CT, X-rays, U/S, labs)? Why? @ -None What meds were considered but not given or refused? Why? @ -None Did you discuss the management of the patient with other professionals (professionals i.e. , PA, MEDICATION MANAGER, lab, RT, psych nurse, mental health social worker, psychology lecturer, teacher, border patrol officer, casework specialist)? Give summary @ -Case discussed with Dr. Root for admission given patient surgical history and evidence of small bowel obstruction Was smoking cessation discussed for >3mins.? @ -No Was critical care preformed (if so, how long)? @ -No Were there social determinants of health that impacted care today? How? (Homelessness, low income, unemployed, alcoholism, drug addiction, transportation, low edu. Level, literacy, decrease access to med. care, prison, rehab)? @ -No Was there de-escalation of care discussed even if they declined (Discuss DNR or withdrawal of care, Hospice)? DNR status @ -No What co-morbidities impacted this encounter? (DM, HTN, Smoking, COPD, CAD, C ancer, CVA, ARF, Chemo, Hep., AIDS, mental health diagnosis, sleep apnea, morbid obesity)? @ -Johana-en-Y surgery Was patient admitted / discharged? Hospital course, mention meds given and route, prescriptions, significant lab abnormalities, going to OR and other pertinent info. @ -Admitted patient has evidence of small bowel obstruction patient was admitted to Dr. Root patient NG tube placed. Undiagnosed new problem with uncertain prognosis? @ -No Drug Therapy requiring intensive monitoring for toxicity (Heparin, Nitro, Insulin, Cardizem)? @ -No Were any procedures done? @ -No Diagnosis/symptom? @ -Small bowel obstruction Acute, or Chronic, or Acute on Chronic? @ -[Acute Uncomplicated (without systemic symptoms) or Complicated (systemic symptoms)? @ -complicated Side effects of treatment? @ -No Exacerbation, Progression, or Severe Exacerbation? @ -No Poses a threat to life or bodily function? How? (Chest pain, [place], [place], pneumonia, PE, COPD, DKA, ARF, appy, cholecystitis, CVA, Diverticulitis, Homicidal, Suicidal, threat to staff... and all critical care pts) @ -No - Lab Data Result diagrams: 12/13/22 20:02 12/13/22 20:02 Lab Results 12/13/22 12/13/22 12/13/22 Range/Units 20:01 20:02 20:02 WBC 5.0 (3.8-10.6) k/uL RBC 4.23 (3.80-5.40) m/uL Hgb 13.5 (11.4-16.0) gm/dL Hct 42.5 (34.0-46.0) % MCV 100.6 H (80.0-100.0) fL MCH 32.0 (25.0-35.0) pg MCHC 31.8 (31.0-37.0) g/dL RDW 12.9 (11.5-15.5) % Plt Count 162 (150-450) k/uL MPV 8.6 Neutrophils % 53 % Lymphocytes % 40 % Monocytes % 5 % Eosinophils % 1 % Basophils % 0 % Neutrophils # 2.6 (1.3-7.7) k/uL Lymphocytes # 2.0 (1.0-4.8) k/uL Monocytes # 0.2 (0-1.0) k/uL Eosinophils # 0.0 (0-0.7) k/uL Basophils # 0.0 (0-0.2) k/uL PT 9.8 (9.0-12.0) sec INR 0.9 (<1.2) APTT 25.7 (22.0-30.0) sec Sodium (137-145) mmol/L Potassium (3.5-5.1) mmol/L Chloride (98-107) mmol/L Carbon Dioxide (22-30) mmol/L Anion Gap mmol/L BUN (7-17) mg/dL Creatinine (0.52-1.04) mg/dL Est GFR (CKD-EPI)AfAm (>60 ml/min/1.73 sqM) Est GFR (CKD-EPI)NonAf (>60 ml/min/1.73 sqM) Glucose (74-99) mg/dL POC Glucose (mg/dL) 113 H (70-110) mg/dL POC Glu Stress Analyst ID Marcelino Berger Plasma Lactic Acid Ollie (0.7-2.0) mmol/L Calcium (8.4-10.2) mg/dL Total Bilirubin (0.2-1.3) mg/dL AST (14-36) U/L ALT (4-34) U/L Alkaline Phosphatase (38-126) U/L Total Protein (6.3-8.2) g/dL Albumin (3.5-5.0) g/dL Lipase (23-300) U/L 12/13/22 12/13/22 Range/Units 20:02 20:02 WBC (3.8-10.6) k/uL RBC (3.80-5.40) m/uL Hgb (11.4-16.0) gm/dL Hct (34.0-46.0) % MCV (80.0-100.0) fL MCH (25.0-35.0) pg MCHC (31.0-37.0) g/dL RDW (11.5-15.5) % Plt Count (150-450) k/uL MPV Neutrophils % % Lymphocytes % % Monocytes % % Eosinophils % % Basophils % % Neutrophils # (1.3-7.7) k/uL Lymphocytes # (1.0-4.8) k/uL Monocytes # (0-1.0) k/uL Eosinophils # (0-0.7) k/uL Basophils # (0-0.2) k/uL PT (9.0-12.0) sec INR (<1.2) APTT (22.0-30.0) sec Sodium 138 (137-145) mmol/L Potassium 4.6 (3.5-5.1) mmol/L Chloride 100 (98-107) mmol/L Carbon Dioxide 30 (22-30) mmol/L Anion Gap 8 mmol/L BUN 30 H (7-17) mg/dL Creatinine 0.66 (0.52-1.04) mg/dL Est GFR (CKD-EPI)AfAm >90 (>60 ml/min/1.73 sqM) Est GFR (CKD-EPI)NonAf >90 (>60 ml/min/1.73 sqM) Glucose 103 H (74-99) mg/dL POC Glucose (mg/dL) (70-110) mg/dL POC Glu Stress Analyst ID Plasma Lactic Acid Ollie 1.3 (0.7-2.0) mmol/L Calcium 9.3 (8.4-10.2) mg/dL Total Bilirubin 1.4 H (0.2-1.3) mg/dL AST 53 H (14-36) U/L ALT 93 H (4-34) U/L Alkaline Phosphatase 73 (38-126) U/L Total Protein 7.6 (6.3-8.2) g/dL Albumin 4.4 (3.5-5.0) g/dL Lipase 116 (23-300) U/L Disposition Clinical Impression: Small bowel obstruction Disposition: ADMITTED IP TO THIS [facility] Condition: Fair Time of Disposition: 21:48
--- NOTE | 2022-12-13 21:35 | CT ---
EXAMINATION TYPE: CT abdomen pelvis w con CT DLP: 868.3 mGycm, Automated exposure control for dose reduction was used. DATE OF EXAM: 12/13/2022 9:20 PM COMPARISON: None. CLINICAL INDICATION:Female, 47 years old with history of abdominal pain; Abdominal pain. Hx of bypass sx. TECHNIQUE: Axial CT of the abdomen and pelvis. Sagittal and coronal reformats were created on a [employer] workstation. Contrast used:100 ml mL of Isovue 300 with IV Contrast, (none if empty) Oral contrast used: with Oral Contrast (none if empty) FINDINGS: LOWER CHEST: Unremarkable ABDOMEN LIVER: Unremarkable GALLBLADDER AND BILE DUCTS: Calcified densities are seen in the gallbladder fossa which may represent sequela prior surgery versus contracted gallbladder with gallstones present. PANCREAS: Unremarkable. SPLEEN: Unremarkable. ADRENAL GLANDS: Unremarkable. KIDNEYS AND URETERS: No evidence of hydronephrosis or renal calculus. The ureters are unremarkable. PELVIS BLADDER: Unremarkable REPRODUCTIVE: Unremarkable. ABDOMEN & PELVIS STOMACH AND BOWEL: Postsurgical changes to the sixth stomach compatible with Johana-en-Y changes. The i nferior limb demonstrates small bowel feces with dilation up tor 0.6 cm. There is suspected obstructi on at series 202 image 37 the left upper quadrant also seen on axial imaging on series 201 image 47. There is a large stool burden within the cecum which is positioned within the pelvis. The large bowel is rather dilated PERITONEUM/RETROPERITONEUM: No evidence of pneumoperitoneum. Small amount of fluid is seen within the pelvis. VASCULATURE: No evidence of aortic aneurysm. MUSCULOSKELETAL: No acute osseous abnormalities LYMPH NODES: No gross evidence for lymphadenopathy. SOFT TISSUE/ABDOMINAL WALL: Streaky anasarca throughout the soft tissues. IMPRESSION: Postsurgical changes to the bowel including suspected Johana-en-Y changes. There is small bowel obstruc tion left upper quadrant transition point as described above. Further evaluation recommended consider dedicated small bowel follow-through.
[2022-12-13] MEDS ORDERED: ONDANSETRON 4 MG/2 ML VIAL IVP PRN (21:48)
[2022-12-13] MEDS ORDERED: HYDROmorphone 0.5 MG/0.5 ML SYRINGE IVP PRN (21:48)
[2022-12-13] MEDS ORDERED: NALOXONE 0.4 MG/ML 1 ML VIAL IV PRN (21:48)
[2022-12-13] MEDS: SODIUM CHLORIDE 0.9% 1,000 ML IV SCH (22:33)
[2022-12-13] MEDS ORDERED: LORazepam 2 MG/ML INJ IV STA (22:35)
[2022-12-14 05:50] LABS: Amorphous Sediment,Urine Rare /hpf; Appearance,Urine Turbid (Clear); Bilirubin,Urine Negative (Negative); Blood,Urine Negative (Negative); Color,Urine Yellow; Glucose,Urine (UA) Negative (Negative); Ketones,Urine Negative (Negative); Leukocyte Esterase,Urine Negative (Negative); Mucus,Urine Rare /hpf; Nitrite,Urine Negative (Negative); PH, Urine 8.5 (5.0-8.0); Protein,Urine Trace (Negative); Urobilinogen,Urine <2.0 mg/dL (<2.0); WBC,Urine 5 /hpf (0-5)
[2022-12-14 06:14] LABS: Specific Gravity,Urine >1.050 (1.001-1.035)
--- NOTE | 2022-12-14 11:06 | P.GSHP ---
History of Present Illness H&P Date: 12/14/22 CHIEF COMPLAINT: Abdominal pain HISTORY OF PRESENT ILLNESS: This is a 47-year-old female presented to the hospital with complaints of abdominal pain for the last 2 weeks. She has been in to follow up with Dr. Root and they were going to proceed with an exploratory laparotomy in December for evaluation of her pain. However patient's pain has worsened. She reports that the pain increased yesterday after she ate a ham and cheese sandwich. The pain was in the left upper quadrant. She report s the pain continued to worsen and she therefore decided to come in for further evaluation. Patient reports that she had multiple episodes of vomiting in the ER with improvement of the abdominal pain and distention. She is no longer having abdominal distention. She reports the pain is less since yesterday. They were unable to place NG tube yesterday. She is no longer having any flatus or bowel movements. Her last bowel movement was yesterday prior to her eating lunch. She does have multiple surgical history that does include Johana-en-Y, 2 C-sections cholecystectomy and tubal ligation. Patient did have a computed tomography scan that showed small bowel obstruction in the left upper quadrant with transition point. Patient is currently nothing by mouth and scheduled for surgery for lysis of adhesions later today. Patient denies any prior history of bowel obstructions. PAST MEDICAL HISTORY: See list. PAST SURGICAL HISTORY: See list. MEDICATIONS: See list. ALLERGIES: See list. SOCIAL HISTORY: No illicit drug use. REVIEW OF SYSTEMS: CONSTITUTIONAL: Denies fever or chills. HEENT: Denies blurred vision, vision changes, or eye pain. Denies hemoptysis ENDOCRINE: Denies heat or cold intolerance. CARDIOVASCULAR: Denies chest pain or pressure. RESPIRATORY: No shortness of breath. GASTROINTESTINAL: Please refer to HPI NEURO: Denies history of seizures. PSYCH: No depression or suicidal ideation HEMATOLOGIC: Denies bleeding disorders. LYMPHATIC: The patient denies any lumps and bumps around the neck. GENITOURINARY: Denies any blood in urine or increased urinary frequency. MUSCULOSKELETAL: Denies myalgias. Denies joint swelling. Denies decreased range of motion beyond patients baseline. SKIN: Denies pruitis. Denies rash. PHYSICAL EXAM: VITAL SIGNS: Reviewed GENERAL: Well-developed in no acute distress. HEENT: No sclera icterus. Extraocular movements grossly intact. Moist buccal mucosa. Head is atraumatic, normocephalic. Hears conversational speech. No nasal drainage. NECK: Supple without lymphadenopathy. CHEST: Non-labored respirations and equal bilateral excursions. CARDIOVASCULAR: Palpable 2+ radial pulses. ABDOMEN: Soft. Nondistended. tenderness with palpation to left upper quadrant MUSCULOSKELETAL: No clubbing or cyanosis. NEUROLOGIC: No focal or lateralizing signs. Cranial nerves II through XII grossly intact. PSYCH: Appropriate affect. Alert and oriented to person, place and time. SKIN: Well perfused. Good skin turgor. LABORATORY DATA: WBC 5.0 HGB 13.5 platelets 162 Sodium is 138 potassium 4.6 creatinine 0.66 Lactic acid 1.3 Total bili 1.4 AST 53 ALT 93 Lipase 116 IMAGING: Computed tomography scan abdomen and pelvis show postsurgical changes in the bowel including suspected Johana-en-Y changes. There is small bowel obstruction left upper quadrant transition point. ASSESSMENT: 1. Small bowel obstruction with transition point left upper quadrant 2. Multiple abdominal surgeries 3. History of hypertension 4. History of GERD 5. Mildly elevated LFTs PLAN: -Patient scheduled for Robotic lysis of adhesions today with Dr. Root -Keep patient nothing by mouth -Continue IV fluids -Continue pain medication as needed -Continue antiemetics as needed Physician Hi Ranger Operator note has been reviewed by physician. Signing provider agrees with the documented findings, assessment, and plan of care. Past Medical History Past Medical History: GERD/Reflux, Hypertension, Osteoarthritis (OA) Additional Past Medical History / Comment(s): arthritis bilateral knees. WEIGHT LOSS RESOLVED HYPERTENSION. HAS LOST ABOUT 200 POUNDS FRPM BYPASS SURGERY. hx of low potassium w/HCTZ. History of Any Multi-Drug Resistant Organisms: None Reported Past Surgical History: Bariatric Surgery, Section, Cholecystectomy, Orthopedic Surgery, Tubal Ligation Additional Past Surgical History / Comment(s): Left shoulder X2, bilateral arthoscopic knee surgery, gastric bypass 10-11-. Past Anesthesia/Blood Transfusion Reactions: Motion Sickness, Postoperative Nausea & Vomiting (PONV) Additional Past Anesthesia/Blood Transfusion Reaction / Comment(s): Slow to wake up. Past Psychological History: No Psychological Hx Reported Smoking Status: Never smoker Past Alcohol Use History: None Reported Past Drug Use History: None Reported - Past Family History Father Family Medical History: Hyperlipidemia, Hypertension Additional Family Medical History / Comment(s): pacemaker for arrhythmia Mother Family Medical History: No Reported History Medications and Allergies Home Medications Medication Instructions Recorded Confirmed Type Iron 18 mg PO DAILY 07/20/22 12/13/22 History Vitamin A 2,400 mcg PO DAILY 07/20/22 12/13/22 History Omeprazole [PriLOSEC] 40 mg PO BID 11/14/22 12/13/22 History Bariatric Fusion Supplement 1 cap PO DAILY 12/13/22 12/13/22 History Allergies Allergy/AdvReac Type Severity Reaction Status Date / Time lactulose AdvReac Headache Verified 12/13/22 22:44 Surgical - Exam Vital Signs Temp Pulse Resp BP Pulse Ox 97.7 F 66 24 144/91 100 12/13/22 19:45 12/13/22 19:45 12/13/22 19:45 12/13/22 19:45 12/13/22 19:45 Results - Labs 12/13/22 20:02 12/13/22 20:02 Abnormal Lab Results - Last 24 Hours (Table) 12/13/22 12/13/22 12/13/22 Range/Units 20:01 20:02 20:02 MCV 100.6 H (80.0-100.0) fL BUN 30 H (7-17) mg/dL Glucose 103 H (74-99) mg/dL POC Glucose (mg/dL) 113 H (70-110) mg/dL Total Bilirubin 1.4 H (0.2-1.3) mg/dL AST 53 H (14-36) U/L ALT 93 H (4-34) U/L Urine Appearance (Clear) Urine pH (5.0-8.0) Ur Specific [place] (1.001-1.035) Urine Protein (Negative) Amorphous Sediment (None) /hpf Urine Mucus (None) /hpf 12/14/22 Range/Units 05:28 MCV (80.0-100.0) fL BUN (7-17) mg/dL Glucose (74-99) mg/dL POC Glucose (mg/dL) (70-110) mg/dL Total Bilirubin (0.2-1.3) mg/dL AST (14-36) U/L ALT (4-34) U/L Urine Appearance Turbid H (Clear) Urine pH 8.5 H (5.0-8.0) Ur Specific [place] >1.050 H (1.001-1.035) Urine Protein Trace H (Negative) Amorphous Sediment Rare H (None) /hpf Urine Mucus Rare H (None) /hpf Diabetes panel 12/13/22 Range/Units 20:02 Sodium 138 (137-145) mmol/L Potassium 4.6 (3.5-5.1) mmol/L Chloride 100 (98-107) mmol/L Carbon Dioxide 30 (22-30) mmol/L BUN 30 H (7-17) mg/dL Creatinine 0.66 (0.52-1.04) mg/dL Glucose 103 H (74-99) mg/dL Calcium 9.3 (8.4-10.2) mg/dL AST 53 H (14-36) U/L ALT 93 H (4-34) U/L Alkaline Phosphatase 73 (38-126) U/L Total Protein 7.6 (6.3-8.2) g/dL Albumin 4.4 (3.5-5.0) g/dL Calcium panel 12/13/22 Range/Units 20:02 Calcium 9.3 (8.4-10.2) mg/dL Albumin 4.4 (3.5-5.0) g/dL Pituitary panel 12/13/22 Range/Units 20:02 Sodium 138 (137-145) mmol/L Potassium 4.6 (3.5-5.1) mmol/L Chloride 100 (98-107) mmol/L Carbon Dioxide 30 (22-30) mmol/L BUN 30 H (7-17) mg/dL Creatinine 0.66 (0.52-1.04) mg/dL Glucose 103 H (74-99) mg/dL Calcium 9.3 (8.4-10.2) mg/dL Adrenal panel 12/13/22 Range/Units 20:02 Sodium 138 (137-145) mmol/L Potassium 4.6 (3.5-5.1) mmol/L Chloride 100 (98-107) mmol/L Carbon Dioxide 30 (22-30) mmol/L BUN 30 H (7-17) mg/dL Creatinine 0.66 (0.52-1.04) mg/dL Glucose 103 H (74-99) mg/dL Calcium 9.3 (8.4-10.2) mg/dL Total Bilirubin 1.4 H (0.2-1.3) mg/dL AST 53 H (14-36) U/L ALT 93 H (4-34) U/L Alkaline Phosphatase 73 (38-126) U/L Total Protein 7.6 (6.3-8.2) g/dL Albumin 4.4 (3.5-5.0) g/dL
[2022-12-14] MEDS: SODIUM CHLORIDE 0.9% 1,000 ML IV SCH ×2 (13:20→23:40)
[2022-12-14] MEDS ORDERED: SUCCINYLCHOLINE CHLORIDE 200 MG/10 ML VIAL IV ONE (18:55)
[2022-12-14] MEDS ORDERED: ROCURONIUM 10 MG/ML (5 ML VIAL) IV ONE (18:55)
[2022-12-14] MEDS ORDERED: ceFAZolin 1,000 MG VIAL ONE (18:55)
[2022-12-14] MEDS ORDERED: NEOSTIGMINE 1 MG/ML 10 ML VIAL ONE (18:55)
[2022-12-14] MEDS ORDERED: SODIUM CHLORIDE 0.9% 100 ML BAG ONE (18:55)
[2022-12-14] MEDS ORDERED: KETAMINE 10 MG/ML 20 ML VIAL ONE (18:55)
[2022-12-14] MEDS ORDERED: GLYCOPYRROLATE 0.2 MG/ML 2 ML VIAL ONE (18:55)
[2022-12-14] MEDS ORDERED: MIDAZOLAM 2 MG/2 ML VIAL ONE (18:55)
[2022-12-14] MEDS ORDERED: PROPOFOL 10 MG/ML 20 ML VIAL IV ONE (18:55)
[2022-12-14] MEDS ORDERED: LIDOCAINE 2% INJ 20 MG/ML (2 ML VIAL) ONE (18:55)
[2022-12-14] MEDS ORDERED: diphenhydrAMINE 50 MG/ML 1 ML VIAL ONE (18:55)
[2022-12-14] MEDS ORDERED: LACTATED RINGERS 1,000 ML IV ONE ×2 (19:00→19:38)
[2022-12-14] MEDS ORDERED: LIDOCAINE 2%-EPI 1:100,000 20 ML VIAL SQ ONE (19:24)
[2022-12-14] MEDS ORDERED: SODIUM CHLORIDE 0.9% 50 ML with ceFAZolin 2,000 MG IV ONE ×4 (19:25)
[2022-12-14] MEDS ORDERED: GLYCOPYRROLATE 0.2 MG/ML 2 ML VIAL IVP ONE (20:44)
[2022-12-14] MEDS ORDERED: HYDROmorphone 0.5 MG/0.5 ML SYRINGE IVP ONE (21:05)
[2022-12-14 22:06] VITALS: RESP 18
--- NOTE | 2022-12-14 22:29 | P.OP ---
Date of Procedure: 12/14/22 Description of Procedure: Acute small bowel obstruction Left upper quadrant abdominal Epigastric Adhesions left upper quadrant of small bowel to the abdominal wall Multiple interloop adhesions left upper quadrant addressed with vessel sealer jejunojejunostomy Mensah's defect and jejunojejunostomy defect completely scarred Simple right ovarian cyst 3 cm Uterus adherent to the abdominal wall for midline SURGEON: ROSEANNE NEFF MD PREOPERATIVE DIAGNOSES: 1. Epigastric abdominal pain 2. Abnormal computed tomography scan with internal hernia 3. History of gastric bypass 4. Small bowel obstruction 5. Acute blood loss anemia due to metromenorrhagia 6. 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 Epigastric abdominal pain 2. Abnormal computed tomography scan with internal hernia 3. History of gastric bypass 4. Small bowel obstruction 5. Acute blood loss anemia due to metromenorrhagia 6. Internal hernia with small bowel volvulus 7. Sigmoid volvulus 8. 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 Robotic-assisted da Suresh Xi laparoscopic with extensive lysis of adhesions over 1 hr ESTIMATED BLOOD LOSS: 5 mL. SPECIMENS REMOVED: None. COMPLICATIONS: None. OPERATIVE FINDINGS: 1. No ventral hernias identified. 2. Adhesions along the epigastrium, left upper quarant 3. Long mesentery of the small bowel with small bowel volvulus reduced 4. Complete scarring of Mensah defect and jejunojejunostomy mesenteric defect 5. Adhesion of gastrojejunal anastomosis to the anterior abdominal wall released 6. Moderate gaseous distention of sigmoid colon, redundant with sigmoid volvulus reduced 7. Abnormal adhesions of biliopancreatic limb jejunostomy to nati limb divided 8. Normal terminal ileum and cecum unremarkable. INDICATIONS: The patient is a 47-year-old female who presents with epigastric abdominal pain including left upper quadrant abdominal pain. Surgical intervention with diagnostic laparoscopy, lysis of adhesions were described. Informed consent was obtained. Robotic assisted laparoscopic approach was described. Benefits and risks of the procedure including but not limited to bleeding, infection, injury to the small bowel was described. Informed consent was obtained. DESCRIPTION OF PROCEDURE: Patient was brought to the operating room, placed in supine position. After general induction, the abdomen had been prepped and draped in standard sterile fashion. The robotic da Suresh XI system was primed. After a timeout protocol was performed, the patient had been prepped and draped in standard sterile fashion. The robot was docked along the right lateral abdomen. The patient was repositioned in with right side up. Please note prior to docking of the robot; however, a 5 mm 0 degrees laparoscopic trocar entry was performed along the left upper quadrant. The abdomen was insufflated to 15 mmHg pressure which she tolerated well. Diagnostic laparoscopy was performed. Next, three 8 mm robotic ports were placed along the right lateral abdominal wall. The camera 8-mm port was maintained along mid-lateral abdomen. Please note that the ports were placed at least 10 to 15 cm away from the target anatomy. Instruments including graspers and vessel sealer were interchanged by the hospital aides and assistants teacher. I had sat at the console. No evidence of incisional hernia was identified. The rest of the abdomen was unremarkable for small bowel pathology. The small bowel from the nati limb to distal ileum was inspected. The small bowel was investigated from the terminal ileum to the ligament of Treitz with finding of redundant mesentery with active small bowel volvulus involving the jejunum to the jejunojejunostomy mesenteric defect. Abnormal adhesions to the jejunojejunostomy was identified and divided. The mesentery small bowel volvulus were reduced. Adhesions along the epigastrium linvolving the transverse colon to the nati limb with an active internal hernia was lysed using vessel sealer. No herniation of bowel was found along the Mensah defect or jejunojejunostomy mesenteric defect. Adhesion of gastrojejunal anastomosis to the anterior abdominal wall was released. Moderate gaseous distention of sigmoid colon was identified with an active sigmoid volvulus similarly reduced secondary to highly redundant colon. The terminal ileum and cecum was unremarkable. Extensive lysis of adhesions over 1 hr was performed. The small bowel was viable.The robot was undocked. All pneumoperitoneum instruments were evacuated from the abdominal cavity. The incisions were reapproximated using 4-0 Monocryl in an interrupted subcuticular fashion. Please note along the trocar sites, local anesthetic was placed as a field block prior to insertion of all instruments. Exofin was applied to the skin. At the end of the procedure needle, sponge, and instrument count had been verified correct by the surgical orderly. The patient was transferred to postanesthesia care unit in stable condition.
[2022-12-14] MEDS: ACETAMINOPHEN IV (For NPO) 650 MG in EMPTY BAG 1 BAG IVPB SCH (23:51)
[2022-12-15] MEDS: ACETAMINOPHEN IV (For NPO) 650 MG in EMPTY BAG 1 BAG IVPB SCH (05:43)
[2022-12-15] MEDS ORDERED: PANTOPRAZOLE 40 MG/10 ML VIAL IV SCH (09:00)
[2022-12-15] MEDS ORDERED: HEPARIN SODIUM,PORCINE/PF 5,000 UNIT/0.5 ML SYRINGE SQ SCH (09:00)
[2022-12-15 11:26] VITALS: BP 109/76; PULSE 65; TEMP 97.6
--- NOTE | 2022-12-15 13:42 | P.DS ---
Providers Date of admission: 12/13/22 21:43 Expected date of discharge: 12/15/22 Attending physician: Florence Root Primary care physician: Azul Cha Hospital Course: Discharge diagnosis 1. Epigastric abdominal pain 2. Abnormal computed tomography scan with internal hernia 3. History of gastric bypass 4. Small bowel obstruction 5. Acute blood loss anemia due to metromenorrhagia 6. Internal hernia with small bowel volvulus 7. Sigmoid volvulus 8. 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 Computed tomography scan that showed small bowel obstruction in the left upper quadrant with transition point. Patient is status post Robotic-assisted da Suresh Xi laparoscopic with extensive lysis of adhesions. Patient tolerated surgery well. Her pain is controlled. She has been up and ambulating. She is tolerating diet. She is afebrile. She is having flatus. Denies any difficulty urinating. She is stable for discharge. 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 Signing provider agrees with the documented findings, assessment, and plan of care. Patient Condition at Discharge: Stable Plan - Discharge Summary New Discharge Prescriptions: New Acetaminophen Tab [Tylenol] 1,000 mg PO Q6HR PRN #30 tablet PRN Reason: Pain Continue Iron 18 mg PO DAILY Vitamin A 2,400 mcg PO DAILY Bariatric Fusion Supplement 1 cap PO DAILY Omeprazole [PriLOSEC] 40 mg PO BID Discharge Medication List Iron 18 mg PO DAILY 07/20/22 [History] Vitamin A 2,400 mcg PO DAILY 07/20/22 [History] Omeprazole [PriLOSEC] 40 mg PO BID 11/14/22 [History] Bariatric Fusion Supplement 1 cap PO DAILY 12/13/22 [History] Acetaminophen Tab [Tylenol] 1,000 mg PO Q6HR PRN #30 tablet 12/15/22 [Rx] Follow up [facility]ment(s[facility]Ref[facility] [place] [place] [facility] [place] 12/28/22 Azul Cha MD [Primary Care Provider] - 1-2 days Activity/Diet/Wound Care/Special Instructions: No lifting over 4 pounds in 4 weeks You May shower. No bath tub soaks for two weeks Use Tylenol scheduled for the next 24-48 hours for best pain relief. Use ice along incisions for the today to prevent swelling. Regular Diet at discharge Ok to return to work on December 26, 2022 Discharge Disposition: HOME SELF-CARE
== END 2022-12-15 14:59 | disposition home or self-care (01) | DRG 327 ==
LOC: EC 19:31 → 5NMEDONC 21:43
PROVIDERS: ADMIT Surgery Plastic and Reconstructive Surgery; ATTEND Surgery Plastic and Reconstructive Surgery
PROC: 8E0W4CZ Robotic Assisted Procedure of Trunk Region, Percutaneous Endoscopic Approach (ICD-10-PCS; principal; 2022-12-14 12:15)
PROC: 0DN44ZZ Release Esophagogastric Junction, Percutaneous Endoscopic Approach (ICD-10-PCS; principal; 2022-12-14 12:15)
PROC: 0DNA4ZZ Release Jejunum, Percutaneous Endoscopic Approach (ICD-10-PCS; principal; 2022-12-14 12:15)
DX: K56.2 Volvulus (principal); D62 Acute posthemorrhagic anemia; N92.1 Excessive and frequent menstruation with irregular cycle; K66.0 Peritoneal adhesions (postprocedural) (postinfection); K28.7 Chronic gastrojejunal ulcer without hemorrhage or perforation; K46.9 Unspecified abdominal hernia without obstruction or gangrene; I10 Essential (primary) hypertension; K21.9 Gastro-esophageal reflux disease without esophagitis; M17.0 Bilateral primary osteoarthritis of knee; R79.89 Other specified abnormal findings of blood chemistry; Z79.899 Other long term (current) drug therapy; Z98.84 Bariatric surgery status
CPT/HCPCS: 36415; 74177; 80053; 81001; 81025; 83605; 83690; 85025; 85610; 85730; 96361; 96374; 96375; 99285

== ENCOUNTER → 2022-12-13 | Outpatient (CLI) | payer BC, OTHER ==
[2022-12-13 11:15] LABS: Basophils # (A) 0.03 X 10*3/uL (0.00-0.10); Eosinophils # (A) 0.03 X 10*3/uL (0.04-0.35); HCT 39.3 % (37.2-46.3); HGB 12.8 d/dL (12.0-15.0); Immature Grans, Automated 0 %; Lymphocytes # (A) 1.06 X 10*3/uL (0.90-5.00); Lymphocytes % (A) 35.5 %; MCH 33.5 pg (27.0-32.0); MCHC 32.6 d/dL (32.0-37.0); MCV 102.9 FL (80.0-97.0); Mean Platelet Volume 12.1 FL (9.5-12.2); Monocytes # (A) 0.24 X 10*3/uL (0.20-1.00); NRBC Per 100 WBC 0 X 10*3/uL (0.00-0.01); Neutrophils # (A) 1.63 X 10*3/uL (1.80-7.70); Neutrophils % (A) 54.5 %; Platelet Count 157 X 10*3/uL (140-440); RBC 3.82 X 10*6/uL (4.10-5.20); RDW 12.5 % (11.5-14.5); WBC 2.99 X 10*3/uL (4.50-10.00)
[2022-12-13 11:47] LABS: ALT 90 U/L (8-44); AST 50 U/L (13-35); Albumin 3.7 d/dL (3.8-4.9); Albumin/Globulin Ratio 1.68 Ratio (1.60-3.17); Alkaline Phosphatase 66 U/L (41-126); BUN/Creat Ratio 29.14 Ratio (12.00-20.00); Blood Urea Nitrogen 20.4 mg/dL (9.0-27.0); Calcium 9.1 mg/dL (8.7-10.3); Carbon Dioxide 30.5 mmol/L (21.6-31.8); Chloride 104 mmol/L (96-109); Globulin 2.2 d/dL (1.6-3.3); Glucose 46 mg/dL (70-110); Potassium 4.1 mmol/L (3.5-5.5); Sodium 143 mmol/L (135-145); Total Protein 5.9 d/dL (6.2-8.2)
== END | disposition home or self-care (01) ==
LOC: LABWHC1 06:55
PROVIDERS: ATTEND Surgery Plastic and Reconstructive Surgery
DX: Z01.818 Encounter for other preprocedural examination (principal); R94.31 Abnormal electrocardiogram [ECG] [EKG]
CPT/HCPCS: 36415; 80053; 85025; 93005

== ENCOUNTER → 2022-12-28 | Outpatient (CLI) | payer BC, OTHER ==
[2022-12-28 15:44] VITALS: BP 116/76; PULSE 70; TEMP 98.3; BMI 22.3
--- NOTE | 2022-12-28 15:58 | P.BASOAP ---
Subjective Progress Note Date: 12/28/22 She was as low as 114 pounds. She can gain weight now. She reports no further abdominal pain. She is looking into skin removal surgery. She report back pain. She has difficulty wearing clothes. Recommend pictures today. Nystatin prescribed for control of skin infection. She is doing well following surgery. Nystatin prescribed. Objective - Vital Signs Vital signs: Vital Signs Temp 98.3 F 12/28/22 15:39 Pulse 70 12/28/22 15:39 Resp BP 116/76 12/28/22 15:39 Pulse Ox FiO2 Intake & Output 12/27/22 12/28/22 12/28/22 18:59 06:59 18:59 Weight 58.06 kg Assessment/Plan Plan: Date: 12/28/22 Initial Weight: 142.519 kg Initial BMI: 54.8 Current Weight: 58.06 kg Current BMI: 22.3 Type of Surgery: Total Volume in Band: Previous Volume: Volume Removed: Volume Added: Band Size:
--- NOTE | 2022-12-28 16:04 | P.PN ---
Progress Note - Text Progress Note Date: 12/28/22 To whom it may concern: Madina Murphy is under my surgical care. She may return to work, Monday January 02, 2023. Regards, Florence Root.
== END ==
LOC: BARWHC3 15:02
PROVIDERS: ATTEND Surgery Plastic and Reconstructive Surgery
DX: E66.01 Morbid (severe) obesity due to excess calories (principal); Z68.22 Body mass index [BMI] 22.0-22.9, adult; Z91.011 Allergy to milk products
CPT/HCPCS: 99211